=== PATIENT | female | born 1955 | race Caucasian/White ===

== ENCOUNTER → 2016-03-13 | Outpatient (CLI) | payer OTHER | LOC: OD 08:55 | PROVIDERS: ATTEND Family Medicine | DX: E03.9 Hypothyroidism, unspecified (principal); Z79.899 Other long term (current) drug therapy | CPT/HCPCS: 36415; 84436; 84443 ==

== ENCOUNTER 2016-04-19 12:33 | Inpatient (IN) | payer OTHER ==
[2016-04-19] MEDS ORDERED: METHYLPREDNISOLONE INJ 125 MG/2 ML SDV IV ONE (12:43)
[2016-04-19] MEDS ORDERED: IPRATROPIUM/ALBUTEROL 0.5-2.5 MG/3 ML AMPUL NEB ONE ×2 (12:43→19:22)
--- NOTE | 2016-04-19 12:43 | ER Document Report ---
ED Medical Screen (RME) - General TRAVEL OUTSIDE OF THE [place] IN LAST 30 DAYS: No <RICCO LUNA - Last Filed: 04/19/16 12:40> <WM HOLT - Last Filed: 04/19/16 15:53> - General Stated Complaint: COUGH,DIFFICULTY BREATHING Notes: Patient is a 61-year-old female presents emergency room complaining of shortness of breath. Satting 90% on room air. Patient states that she's had shortness of breath and difficulty breathing since Saturday. Denies any home with the albuterol nebulizers. Patient denies any history of COPD or asthma however she has a nebulizer at home for recurrent bronchitis been taking nebulizer albuterol. Patient did not receive an influenza vaccine this year I have greeted and performed a rapid initial assessment of this patient. A comprehensive ED assessment and evaluation of the patient, analysis of test results and completion of the medical decision making process will be conducted by additional ED providers. (RICCO LUNA) - Related Data Allergies/Adverse Reactions: diphenhydramine HCl [From Benadryl] Adverse Reaction (Mild, Verified 04/19/16 12 :40) makes me feel funny Past Medical History - Past Medical History Cardiac Medical History: Reports: Hx Hypercholesterolemia, Hx Hypertension Pulmonary Medical History: Reports: Hx Bronchitis Denies: Hx Tuberculosis Endocrine Medical History: Reports: Hx Diabetes Mellitus Type 2 GI Medical History: Reports: Hx Gastroesophageal Reflux Disease Musculoskeltal Medical History: Reports Hx Arthritis Past Surgical History: Reports: Hx Section, Hx Cholecystectomy, Hx Orthopedic Surgery - Immunizations Immunizations up to date: Yes Hx Diphtheria, Pertussis, Tetanus Vaccination: Yes <RICCO LUNA - Last Filed: 04/19/16 12:40> Course <RICCO LUNA - Last Filed: 04/19/16 12:40> - Laboratory Result Diagrams: 04/19/16 12:50 04/19/16 12:50 <WM HOLT - Last Filed: 04/19/16 15:53> - Re-evaluation Re-evalutation: 04/19/16 15:22 I personally performed the services described in the documentation, reviewed and edited the documentation which was dictated to my scribe in my presence, and it accurately records my words and actions. Patient seen up in [facility] area had been medically screened 3-4 day history of coughing difficulty breathing she does not have a history of COPD emphysema is non-oxygen at home initial sats were running 92% she is tachycardic. Acute workup including chest x-ray and labs are negative including chest x-ray. On my exam patient is still mildly short of breath her O2 sat is 88% and she still tachycardic. I have ordered an IV CT angiogram flu screen and additional workup and evaluation and the patient may be needing admission depending on the results. 04/19/16 15:53 (WM HOLT) - Vital Signs Vital signs: Temp Pulse Resp BP Pulse Ox 98.0 F 100 20 119/70 93 04/19/16 12:41 04/19/16 15:18 04/19/16 15:18 04/19/16 12:41 04/19/16 15:18 (WM HOLT) - Laboratory Laboratory results interpreted by me: 04/19/16 04/19/16 12:50 12:50 Seg Neutrophils % 79.9 H Lymphocytes % 6.4 L Absolute Lymphocytes 0.4 L Sodium 134.7 L Potassium 3.3 L Chloride 92 L BUN 23 H Est GFR (Non-Af Amer) 55 L AST 37 H (WM HOLT) - EKG Interpretation by Me Additional EKG results interpreted by me: 04/19/16 15:53 EKG interpreted by myself to reveal sinus rhythm at 97 bpm with left ventricular hypertrophy. No acute ST segment elevation or depression (WM HOLT )
[2016-04-19] MEDS ORDERED: ALBUTEROL SULFATE 0.083% NEB 2.5 MG/3 ML AMPUL NEB SCH (12:58)
[2016-04-19 13:01] LABS: ABSOLUTE LYMPHOCYTES (AUTO) 0.4 10^3/uL (0.5-4.7); ABSOLUTE MONOCYTES (AUTO) 0.8 10^3/uL (0.1-1.4); ABSOLUTE NEUT (AUTO) 5.1 10^3/uL (1.7-8.2); BASOPHILS % (AUTO) 0.5 % (0-2); EOSINOPHILS % (AUTO) 0.7 % (0-6); HEMATOCRIT 37.8 % (36.0-47.0); HEMOGLOBIN 12.7 g/dL (12.0-15.5); HGB HCT DIFFERENCE 0.3; LYMPHOCYTES % (AUTO) 6.4 % (13-45); MEAN CORPUSCULAR HEMOGLOBIN 29.9 pg (27.0-33.4); MEAN CORPUSCULAR HGB CONC 33.6 g/dL (32.0-36.0); MEAN CORPUSCULAR VOLUME 89 fl (80-97); MONOCYTES % (AUTO) 12.5 % (3-13); RED BLOOD COUNT 4.24 10^6/uL (3.72-5.28); RED CELL DISTRIBUTION WIDTH 13.1 % (11.5-14.0); SEGMENTED NEUTROPHILS % (AUTO) 79.9 % (42-78); WHITE BLOOD COUNT 6.4 10^3/uL (4.0-10.5)
[2016-04-19 13:14] LABS: ALANINE AMINOTRANSFERASE 34 U/L (9-52); ALBUMIN 4.7 g/dL (3.5-5.0); ALKALINE PHOSPHATASE 68 U/L (38-126); ANION GAP 15 (5-19); ASPARTATE AMINO TRANSFERASE 37 U/L (14-36); BILIRUBIN,TOTAL 0.9 mg/dL (0.2-1.3); BLOOD UREA NITROGEN 23 mg/dL (7-20); CALCIUM 9.6 mg/dL (8.4-10.2); CARBON DIOXIDE 28 mmol/L (22-30); CHLORIDE 92 mmol/L (98-107); CREATININE RESULT 1.02 mg/dL (0.52-1.25); GLUCOSE 102 mg/dL (75-110); POTASSIUM 3.3 mmol/L (3.6-5.0); SODIUM 134.7 mmol/L (137-145); TOTAL PROTEIN 8.2 g/dL (6.3-8.2)
[2016-04-19] MEDS ORDERED: NORMAL SALINE 1000 ML 1,000 ML IV ONE (17:51)
--- NOTE | 2016-04-19 17:56 | ER Document Report ---
ED Respiratory Problem - General Time seen by provider: 17:45 Mode of Arrival: Wheelchair Information source: Patient TRAVEL OUTSIDE OF THE [place] IN LAST 30 DAYS: No - HPI Patient complains to provider of: Cough, Short of breath Onset: Other - see HPI note Duration: Continuous At home treatment: Bronchodilators Associated symptoms: Cough. denies: Wheezing <NATALIE BERUMEN - Last Filed: 04/19/16 17:57> <LAURA ALBRECHT - Last Filed: 04/19/16 22:22> - General Chief Complaint: Cough Stated Complaint: COUGH,DIFFICULTY BREATHING Notes: Patient is a 61-year-old female presenting of her department with complaints of difficulty breathing. Patient states her difficulty breathing started Saturday evening. Patient has taken multiple nebulizer treatments to help her breathing with no relief; patient has a nebulizer for when she gets bronchitis. Patient states her breathing is not getting better. Patient states at rest she is okay that her breathing becomes more difficult with movement. Patient also has a nonproductive cough with no sputum. Patient states she has some epigastric pain when she coughs. Patient has felt very dizzy and tired and nauseous today and has not been eating much food or drinking many fluids. Patient denies any fever. Patient did not get her flu vaccination this year. patient is allergic to Benadryll and states it makes her hear flutter. (NATALIE BERUMEN) - Related Data Allergies/Adverse Reactions: diphenhydramine HCl [From Benadryl] Adverse Reaction (Mild, Verified 04/19/16 12 :40) makes me feel funny Past Medical History - General Information source: Patient - Social History Smoking Status: Never Smoker Cigarette use (# per day): No Chew tobacco use (# tins/day): No Frequency of alcohol use: None Drug Abuse: None Family History: DM, Hypertension, Malignancy Patient has suicidal ideation: No Patient has homicidal ideation: No - Past Medical History Cardiac Medical History: Reports: Hx Hypercholesterolemia, Hx Hypertension Pulmonary Medical History: Reports: Hx Bronchitis Endocrine Medical History: Reports: Hx Diabetes Mellitus Type 2 GI Medical History: Reports: Hx Gastroesophageal Reflux Disease Musculoskeltal Medical History: Reports Hx Arthritis Past Surgical History: Reports: Hx Section, Hx Cholecystectomy, Hx Orthopedic Surgery - Immunizations Immunizations up to date: Yes Hx Diphtheria, Pertussis, Tetanus Vaccination: Yes Hx Pneumococcal Vaccination: 10/01/14 <NATALIE BERUMEN - Last Filed: 04/19/16 17:57> - Social History Smoking Education Provided: No Lives with: Family <TRENALAURA Bryant - Last Filed: 04/19/16 22:22> Review of Systems - Review of Systems Constitutional: No symptoms reported EENT: No symptoms reported Cardiovascular: See HPI, Chest pain, Dizziness Respiratory: See HPI, Cough, Hurts to breathe, Short of breath. denies: Sputum Gastrointestinal: No symptoms reported Genitourinary: No symptoms reported Female Genitourinary: No symptoms reported Musculoskeletal: No symptoms reported Skin: No symptoms reported Hematologic/Lymphatic: No symptoms reported Neurological/Psychological: No symptoms reported -: Yes All other systems reviewed and negative <NATALIE BERUMEN - Last Filed: 04/19/16 17:57> Physical Exam - Vital signs Interpretation: Hypoxic - upon arrival - General General appearance: Appears well, Alert In distress: Mild - HEENT Head: Normocephalic, Atraumatic Eyes: Normal Pupils: PERRL Mucous membranes: Moist - Respiratory Respiratory status: No respiratory distress Chest status: Tender - tenderness over the sternum, xiphoid and epigastric area Breath sounds: Other - Course lungs sounds when coughing. No: Rhonchi, Wheezing - Cardiovascular Rhythm: Regular Heart sounds: Normal auscultation Murmur: No - Abdominal Inspection: Normal Distension: No distension Bowel sounds: Normal Tenderness: Nontender Organomegaly: No organomegaly - Back Back: Normal, Nontender - Extremities General upper extremity: Normal inspection, Normal ROM, Normal strength General lower extremity: Normal inspection, Normal ROM, Normal strength - Neurological Neuro grossly intact: Yes Cognition: Normal Orientation: AAOx4 [place] Coma Scale Eye Opening: Spontaneous [place] Coma Scale Verbal: Oriented Valent[place] Coma Scale Motor: Obeys Commands Valentín Coma Scale Total: 15 Speech: Normal - Psychological Associated symptoms: Normal affect, Normal mood - Skin Skin Temperature: Warm Skin Moisture: Dry <ATANATALIE - Last Filed: 04/19/16 17:57> <TRENALAURA - Last Filed: 04/19/16 22:22> - Vital signs Vitals: Temp Pulse Resp BP Pulse Ox 98.0 F 109 H 19 119/70 92 04/19/16 12:41 04/19/16 12:41 04/19/16 12:41 04/19/16 12:41 04/19/16 12:41 (NATALIE BERUMEN) (LAURA ALBRECHT) Course - Laboratory Result Diagrams: 04/19/16 12:50 04/19/16 12:50 <NATALIE BERUMEN - Last Filed: 04/19/16 17:57> - Laboratory Result Diagrams: 04/19/16 12:50 04/19/16 12:50 - Diagnostic Test Radiology reviewed: Reports reviewed - CT scan showed some mediastinal adenopathy some axillary adenopathy. No pulmonary emboli were seen. No failure , no infiltrates. - EKG Interpretation by Me EKG shows normal: Sinus rhythm, Leonardo, Intervals, ST-T Waves. abnormal: QRS Complexes Rate: Normal - 97 Rhythm: NSR Voltage: Consistant with LVH - Consults Dr. Estrada Time consulted: 22:20 Consulted provider: will come to ER <LAURA ALBRECHT - Last Filed: 04/19/16 22:22> - Re-evaluation Re-evalutation: 04/19/16 19:25 Reevaluated the patient after CT scan, oxygen was turned off. I have her take deep breaths and cough and now hear some wheezes and rhonchi and a harsh bronchitic sound consistent with bronchitis with bronchospasm. Bang were also oxygen to see what her oxygen saturation really goes to. She will also be given prednisone for suppression of the airway inflammation she is having. (LAURA ALBRECHT) - Vital Signs Vital signs: Temp Pulse Resp BP Pulse Ox 98.0 F 100 16 97/76 L 93 04/19/16 12:41 04/19/16 15:18 04/19/16 19:10 04/19/16 19:10 04/19/16 19:10 (NATALIE BERUMEN) (LAURA ALBRECHT) - Laboratory Laboratory results interpreted by ri: 04/19/16 04/19/16 04/19/16 12:50 12:50 12:50 Seg Neutrophils % 79.9 H Lymphocytes % 6.4 L Absolute Lymphocytes 0.4 L ABG pO2 ABG Total CO2 ABG O2 Saturation Sodium 134.7 L Potassium 3.3 L Chloride 92 L BUN 23 H Est GFR (Non-Af Amer) 55 L AST 37 H Creatine Kinase 155 H 04/19/16 21:25 Seg Neutrophils % Lymphocytes % Absolute Lymphocytes ABG pO2 65.3 L ABG Total CO2 26.2 H ABG O2 Saturation 92.8 L Sodium Potassium Chloride BUN Est GFR (Non-Af Amer) AST Creatine Kinase (NATALIE BERUMEN) (LAURA ALBRECHT) Discharge <NATALIE BERUMEN - Last Filed: 04/19/16 17:57> - Discharge Admitting Provider: Hospitalist Unit Admitted: Telemetry <LAURA ALBRECHT - Last Filed: 04/19/16 22:22> - Discharge Clinical Impression: Acute bronchitis with bronchospasm, Hypoxemia Condition: Stable Disposition: ADMITTED OBSERVATION Scribe Documentation - Scribe Written by Zhang:: Natalie Berumen 04/19/16 acting as scribe for :: Trena <NATALIE BERUMEN - Last Filed: 04/19/16 17:57>
--- NOTE | 2016-04-19 17:58 | ER Document Report ---
ED Medical Screen (RME) - General Chief Complaint: Cough Stated Complaint: COUGH,DIFFICULTY BREATHING Mode of Arrival: Ambulatory Information source: Patient Notes: Patient is a 61-year-old female presenting to the emergency department chief complaint difficulty breathing onset 04/17/2016. Patient states she has been doing albuterol treatments at home, her most recent being 0700 this morning with little to no improvement. Patient admits to cough, rib pain secondary to cough, chest tightness, chills, bodyaches, poor appetite, and diarrhea (5 times yesterday). Patient denies fever. TRAVEL OUTSIDE OF THE [place] IN LAST 30 DAYS: No - HPI Patient complains to provider of: Difficulty Breathing Onset: Other - 04/17/2016 Onset/Duration: Gradual, Persistent Associated Symptoms: Body/muscle aches, Cough (nonproductive), Diarrhea, Shortness of breath. denies: Fever - Related Data Smoking: Non-smoker Frequency of alcohol use: None Drug Abuse: None Allergies/Adverse Reactions: diphenhydramine HCl [From Benadryl] Adverse Reaction (Mild, Verified 04/19/16 12 :40) makes me feel funny Past Medical History - General Information source: Patient, [facility] Records - Social History Cigarette use (# per day): No Chew tobacco use (# tins/day): No Frequency of alcohol use: None Drug Abuse: None Family history: Reviewed & Not Pertinent - Past Medical History Cardiac Medical History: Reports: Hx Hypercholesterolemia, Hx Hypertension Pulmonary Medical History: Reports: Hx Bronchitis Denies: Hx Tuberculosis Endocrine Medical History: Reports: Hx Diabetes Mellitus Type 2 Renal/ Medical History: Denies: Hx Peritoneal Dialysis GI Medical History: Reports: Hx Gastroesophageal Reflux Disease Musculoskeltal Medical History: Reports Hx Arthritis Past Surgical History: Reports: Hx Section, Hx Cholecystectomy, Hx Orthopedic Surgery - Immunizations Immunizations up to date: Yes Hx Diphtheria, Pertussis, Tetanus Vaccination: Yes Review of Systems - Review of Systems Constitutional: See HPI, Chills, Other - Body aches. denies: Fever EENT: No symptoms reported Cardiovascular: No symptoms reported Respiratory: See HPI, Cough, Hurts to breathe - Chest tightness, Short of breath , Other - Rib pain secondary to cough. denies: Sputum Gastrointestinal: See HPI, Diarrhea - 5 yesterday, Poor appetite Genitourinary: No symptoms reported Female Genitourinary: No symptoms reported Musculoskeletal: No symptoms reported Skin: No symptoms reported Hematologic/Lymphatic: No symptoms reported Neurological/Psychological: No symptoms reported -: Yes All other systems reviewed and negative Physical Exam - Vital signs Vitals: Temp Pulse Resp BP Pulse Ox 98.0 F 109 H 19 119/70 92 04/19/16 12:41 04/19/16 12:41 04/19/16 12:41 04/19/16 12:41 04/19/16 12:41 Notes: GENERAL: Alert, interacts well. LUNGS: Clear to auscultation bilaterally, no wheezes, rales, or rhonchi. HEART: Tachycardic. No murmurs, gallops, or rubs. - Respiratory Breath sounds: Nonproductive cough, Rhonchi, Wheezing Course - Vital Signs Vital signs: Temp Pulse Resp BP Pulse Ox 98.0 F 100 16 97/76 L 93 04/19/16 12:41 04/19/16 15:18 04/19/16 19:10 04/19/16 19:10 04/19/16 19:10 - Laboratory Result Diagrams: 04/19/16 12:50 04/19/16 12:50 Laboratory results interpreted by me: 04/19/16 04/19/16 04/19/16 12:50 12:50 12:50 Seg Neutrophils % 79.9 H Lymphocytes % 6.4 L Absolute Lymphocytes 0.4 L Sodium 134.7 L Potassium 3.3 L Chloride 92 L BUN 23 H Est GFR (Non-Af Amer) 55 L AST 37 H Creatine Kinase 155 H Scribe Documentation - Scribe Written by Zhang:: Fatoumata Henriquez 04/19/2016 [id number] acting as scribe for :: Harjit
[2016-04-19] MEDS ORDERED: LIDOCAINE 1% INJ-PF (10 MG/ML) 30 ML SDV INJ ONE (19:22)
[2016-04-19] MEDS ORDERED: PREDNISONE 20 MG TABLET PO ONE (19:24)
[2016-04-19 21:50] LABS: ARTERIAL BLOOD BASE EXCESS 0.1 mmol/L; ARTERIAL BLOOD O2 SATURATION 92.8 % (94-98)
[2016-04-19] MEDS ORDERED: HYDRALAZINE HCL INJ/PF 20 MG/1 ML SDV IV PRN (22:21)
[2016-04-19] MEDS ORDERED: ACETAMINOPHEN 325 MG TABLET PO PRN (22:21)
[2016-04-19] MEDS ORDERED: LACTULOSE SYRUP 20 GM/30 ML UDCUP PO ONE (22:21)
[2016-04-19] MEDS ORDERED: IPRATROPIUM/ALBUTEROL 0.5-2.5 MG/3 ML AMPUL NEB PRN (22:21)
[2016-04-19] MEDS ORDERED: DEXTROSE 40% GEL 15 GM TUBE PO PRN ×2 (22:23)
[2016-04-19] MEDS ORDERED: GLUCAGON,HUMAN RECOMB 1 MG INJ IM PRN (22:23)
[2016-04-19] MEDS ORDERED: DEXTROSE 50%-WATER 25 GM/50 ML DISP.SYRIN IV PRN ×2 (22:23)
[2016-04-19] MEDS ORDERED: POTASSIUM CHLORIDE 10 MEQ TABLET.SA PO ONE (22:28)
[2016-04-19] MEDS ORDERED: NORMAL SALINE 1000 ML 1,000 ML IV SCH (22:30)
[2016-04-19] MEDS ORDERED: LEVOFLOXACIN 750 MG/D5W RTU 750 MG/150 ML RTUPB IV SCH (23:00)
[2016-04-19] MEDS: LANSOPRAZOLE 30 MG TAB.RAP.DR PO SCH (23:24)
[2016-04-20] MEDS: IPRATROPIUM/ALBUTEROL 0.5-2.5 MG/3 ML AMPUL NEB SCH ×4 (02:12→20:34)
[2016-04-20] MEDS ORDERED: INFLUENZA ADLT QUAD (36MOS+) 2016-17 VAC 0.5 ML SYR IM PRN (04:32)
--- NOTE | 2016-04-20 05:01 | PDOC H&P ---
History of Present Illness Admission Date/PCP: 04/19/16 22:23 JOVITA UP MD Patient complains of: Shortness of breath and cough History of Present Illness: SONG CLEMONS is a 61 year old female with a past medical history of hypertension, diabetes, GERD, obesity and chronic bronchitis who has had 2 days of exceptional shortness of breath and a nonproductive cough prompting him to seek evaluation emergency room where she's found to be tachypneic and hypoxic by ABG. She receives several albuterol Atrovent nebulizers and stress dose steroids, without significant improvement and is referred to the hospitalist for admission. She admits chest wall pain with coughing nausea vomiting or diaphoresis. She admits maxillary sinusitis without pain denies pharyngitis. A CTA of the chest is negative for pulmonary emboli but worrisome for mediastinal lymphadenopathy. Past Medical History Cardiac Medical History: Reports: Hyperlipidema, Hypertension Pulmonary Medical History: Reports: Bronchitis Denies: Tuberculosis Endocrine Medical History: Reports: Diabetes Mellitus Type 2 GI Medical History: Reports: Gastroesophageal Reflux Disease Musculoskeltal Medical History: Reports: Arthritis Hematology: Denies: Anemia Past Surgical History Past Surgical History: Reports: Section, Cholecystectomy, Orthopedic Surgery Social History Information Source: Patient Lives with: Family Smoking Status: Never Smoker Frequency of Alcohol Use: None Hx Recreational Drug Use: No Hx Prescription Drug Abuse: No - Advance Directive Resuscitation Status: Full Code Family History Family History: DM, Hypertension, Malignancy Parental Family History Reviewed: Yes Children Family History Reviewed: Yes Sibling(s) Family History Reviewed.: Yes Medication/Allergy Home Medications: Amlodipine Besylate [Norvasc 10 mg Tablet] 10 mg PO DAILY 02/18/13 Atorvastatin Calcium [Lipitor 20 mg Tablet] 20 mg PO QHS 02/18/13 Gabapentin 800 mg PO QID 02/18/13 Hydrocodone Bit/Acetaminophen [Hydrocodon-Acetaminophn 10-325] 1 each PO QID Insulin Lispro [Humalog] 100 unit SQ ASDIR PRN 02/18/13 Metformin HCl [Glucophage 850 mg Tablet] 850 mg PO BID 02/18/13 Pantoprazole Sodium [Protonix] 40 mg PO DAILY 02/18/13 Azithromycin [Zithromax 250 mg Tablet] 250 mg PO ASDIR PRN #6 tablet 06/02/13 Benzonatate [Tessalon Perles 100 mg Capsule] 100 mg PO ASDIR PRN #30 capsule 03/17 Levalbuterol HCl [Xopenex] 1.25 mg IH Q4 PRN #30 ml 06/02/13 Amoxicillin Trihydrate [Amoxil 875 mg Tablet] 1 tab PO BID #20 tablet 04/04/14 Amoxicillin 500 mg PO TID #30 tablet 05/10/14 Hydrocodone Bit/Homatropine [Hycodan Syrup 5-1.5 mg/ 5 ml Ud Cup] 5 ml PO ASDIR PRN #60 ml 05/10/14 Loratadine [Claritin 10 Mg Tablet] 10 mg PO DAILY #30 tablet 05/10/14 Allergies/Adverse Reactions: diphenhydramine HCl [From Benadryl] Adverse Reaction (Mild, Verified 04/19/16 12 :40) makes me feel funny Review of Systems Constitutional: ABSENT: chills, fever(s), headache(s), weight gain, weight loss Eyes: ABSENT: visual disturbances Ears: ABSENT: hearing changes Cardiovascular: ABSENT: chest pain, dyspnea on exertion, edema, orthropnea, palpitations Respiratory: ABSENT: cough, hemoptysis Gastrointestinal: ABSENT: abdominal pain, constipation, diarrhea, hematemesis, hematochezia, nausea, vomiting Genitourinary: ABSENT: dysuria, hematuria Musculoskeletal: ABSENT: joint swelling Integumentary: ABSENT: rash, wounds Neurological: ABSENT: abnormal gait, abnormal speech, confusion, dizziness, focal weakness, syncope Psychiatric: ABSENT: anxiety, depression, homidical ideation, suicidal ideation Endocrine: ABSENT: cold intolerance, heat intolerance, polydipsia, polyuria Hematologic/Lymphatic: ABSENT: easy bleeding, easy bruising Physical Exam Vital Signs: Temp Pulse Resp BP Pulse Ox 98.2 F 93 16 128/55 H 96 04/20/16 02:46 04/20/16 02:46 04/20/16 02:46 04/20/16 02:46 04/20/16 02:46 Intake & Output 04/18/16 04/19/16 04/20/16 11:59 11:59 11:59 Weight 98.7 kg General appearance: PRESENT: cooperative, mild distress, obese Head exam: PRESENT: atraumatic, normocephalic Eye exam: PRESENT: conjunctiva pink, EOMI, PERRLA. ABSENT: scleral icterus Ear exam: PRESENT: normal external ear exam Mouth exam: PRESENT: moist, tongue midline Neck exam: ABSENT: carotid bruit, JVD, lymphadenopathy, thyromegaly Respiratory exam: PRESENT: accessory muscle use, chest wall tenderness, crackles , rhonchi, symmetrical, tachypnea. ABSENT: rales, wheezes Cardiovascular exam: PRESENT: RRR. ABSENT: diastolic murmur, rubs, systolic murmur Pulses: PRESENT: normal dorsalis pedis pul Vascular exam: PRESENT: normal capillary refill GI/Abdominal exam: PRESENT: normal bowel sounds, soft. ABSENT: distended, guarding, mass, organolmegaly, rebound, tenderness Rectal exam: PRESENT: deferred Extremities exam: PRESENT: full ROM. ABSENT: calf tenderness, clubbing, pedal edema Neurological exam: PRESENT: alert, awake, oriented to person, oriented to place , oriented to time, oriented to situation, CN II-XII grossly intact. ABSENT: motor sensory deficit Psychiatric exam: PRESENT: appropriate affect, normal mood. ABSENT: homicidal ideation, suicidal ideation Skin exam: PRESENT: dry, intact, warm. ABSENT: cyanosis, rash Results Impressions: Chest X-Ray 04/19/16 12:43 IMPRESSION: NO ACUTE RADIOGRAPHIC FINDING IN THE CHEST. Assessment & Plan - Diagnosis (1) Acute bronchitis with bronchospasm Is this a current diagnosis for this admission?: YesPlan: Probable early pneumonia she is placed on empiric antibiotics, albuterol Atrovent, prednisone with flutter valve follow-up CBC and sputum culture (2) Hypoxemia Is this a current diagnosis for this admission?: YesPlan: Secondary to #1 she'll receive supplemental oxygen (3) Mediastinal lymphadenopathy Is this a current diagnosis for this admission?: YesPlan: Hematology oncology consultation versus follow-up CT in 3 months (4) Diabetes 1.5, managed as type 1 Is this a current diagnosis for this admission?: YesPlan: Unclear control continue long-acting insulin with sliding scale lispro - Time Time Spent: 30 to 50 Minutes
[2016-04-20 05:04] LABS: ABSOLUTE LYMPHOCYTES (AUTO) 0.3 10^3/uL (0.5-4.7); ABSOLUTE MONOCYTES (AUTO) 0.1 10^3/uL (0.1-1.4); ABSOLUTE NEUT (AUTO) 2.7 10^3/uL (1.7-8.2); BASOPHILS % (AUTO) 0.4 % (0-2); HEMATOCRIT 34.6 % (36.0-47.0); HEMOGLOBIN 11.7 g/dL (12.0-15.5); HGB HCT DIFFERENCE 0.5; LYMPHOCYTES % (AUTO) 8.4 % (13-45); MEAN CORPUSCULAR HEMOGLOBIN 30.4 pg (27.0-33.4); MEAN CORPUSCULAR HGB CONC 33.9 g/dL (32.0-36.0); MEAN CORPUSCULAR VOLUME 90 fl (80-97); MONOCYTES % (AUTO) 2.6 % (3-13); RED BLOOD COUNT 3.86 10^6/uL (3.72-5.28); RED CELL DISTRIBUTION WIDTH 13.2 % (11.5-14.0); SEGMENTED NEUTROPHILS % (AUTO) 88.6 % (42-78); WHITE BLOOD COUNT 3.1 10^3/uL (4.0-10.5)
[2016-04-20 05:17] LABS: ANION GAP 14 (5-19); BLOOD UREA NITROGEN 26 mg/dL (7-20); CALCIUM 9.2 mg/dL (8.4-10.2); CARBON DIOXIDE 25 mmol/L (22-30); CHLORIDE 96 mmol/L (98-107); CREATININE RESULT 1.03 mg/dL (0.52-1.25); GLUCOSE 243 mg/dL (75-110); POTASSIUM 3.9 mmol/L (3.6-5.0); SODIUM 135.4 mmol/L (137-145)
[2016-04-20] MEDS ORDERED: MAGNESIUM OXIDE 400 MG TABLET PO ONE (05:45)
[2016-04-20] MEDS ORDERED: PREDNISONE 20 MG TABLET PO ONE (06:00)
[2016-04-20] MEDS: HEPARIN SOD (PORCINE) 5,000 UNIT/ML 1 ML SYRINGE SUBCUT SCH ×3 (06:03→22:14)
[2016-04-20] MEDS: HUM INSULIN NPH/REG INSULIN HM 100 UNIT/1 ML 3 ML SUBCUT SCH ×2 (08:21→16:00)
[2016-04-20] MEDS: AMLODIPINE BESYLATE 10 MG TABLET PO SCH (09:37)
[2016-04-20] MEDS: MAGNESIUM OXIDE 400 MG TABLET PO SCH ×2 (09:37→18:04)
[2016-04-20] MEDS: PREDNISONE 20 MG TABLET PO SCH ×2 (09:38→18:04)
[2016-04-20] MEDS: FLUTICASONE NASAL SPRAY 50 MCG/SPRY 120 SPRAY/16 GM NASL SCH ×2 (09:40→22:14)
[2016-04-20] MEDS: GUAIFENESIN 600 MG TABLET.SA PO SCH ×2 (09:40→22:14)
[2016-04-20] MEDS: LORATADINE 10 MG TABLET PO SCH (09:41)
[2016-04-20] MEDS: METFORMIN HCL 850 MG TABLET PO SCH ×2 (09:41→18:04)
[2016-04-20] MEDS: GABAPENTIN 400 MG CAPSULE PO SCH ×4 (09:41→22:14)
--- NOTE | 2016-04-20 10:14 | PDOC PROGRESS REPORT ---
Subjective Progress Note for:: 04/20/16 Subjective:: Complains of shortness of breath but reports is slightly better than yesterday evening. Physical Exam Vital Signs: Temp Pulse Resp BP Pulse Ox 97.8 F 83 16 116/61 97 04/20/16 04:24 04/20/16 07:36 04/20/16 07:36 04/20/16 04:24 04/20/16 07:36 Intake & Output 04/19/16 04/20/16 04/21/16 06:59 06:59 06:59 Intake Total 150 Balance 150 Weight 98.7 kg General appearance: PRESENT: no acute distress Eye exam: PRESENT: conjunctiva pink. ABSENT: scleral icterus Mouth exam: PRESENT: moist, tongue midline Neck exam: ABSENT: JVD Respiratory exam: PRESENT: clear to auscultation chantel, wheezes - Bilateral expiratory wheezes.. ABSENT: rales, rhonchi Cardiovascular exam: PRESENT: RRR. ABSENT: diastolic murmur, rubs, systolic murmur GI/Abdominal exam: PRESENT: normal bowel sounds, soft. ABSENT: distended, guarding, mass, organolmegaly, rebound, tenderness Extremities exam: ABSENT: calf tenderness, clubbing, pedal edema Neurological exam: PRESENT: alert, awake, oriented to person, oriented to place , oriented to time, oriented to situation Psychiatric exam: PRESENT: appropriate affect Skin exam: PRESENT: dry, intact, warm. ABSENT: cyanosis, rash Results Laboratory Results: 04/20/16 03:54 04/20/16 03:54 04/20/16 04/20/16 03:54 03:54 WBC 3.1 L RBC 3.86 Hgb 11.7 L Hct 34.6 L MCV 90 MCH 30.4 MCHC 33.9 RDW 13.2 Plt Count 157 Seg Neutrophils % 88.6 H Lymphocytes % 8.4 L Monocytes % 2.6 L Eosinophils % 0.0 Basophils % 0.4 Absolute Neutrophils 2.7 Absolute Lymphocytes 0.3 L Absolute Monocytes 0.1 Absolute Eosinophils 0.0 Absolute Basophils 0.0 Sodium 135.4 L Potassium 3.9 Chloride 96 L Carbon Dioxide 25 Anion Gap 14 BUN 26 H Creatinine 1.03 Est GFR ( Amer) > 60 Est GFR (Non-Af Amer) 54 L Glucose 243 H Calcium 9.2 Impressions: Chest X-Ray 04/19/16 12:43 IMPRESSION: NO ACUTE RADIOGRAPHIC FINDING IN THE CHEST. Assessment & Plan - Diagnosis (1) Acute bronchitis with bronchospasm Is this a current diagnosis for this admission?: YesPlan: Patient is getting prednisone and Levaquin. We'll also continue with nebulizers. (2) Diabetes 1.5, managed as type 1 Is this a current diagnosis for this admission?: YesPlan: We'll continue with 70/30 insulin along with sliding scale insulin. (3) Hypoxemia Is this a current diagnosis for this admission?: YesPlan: Most likely secondary to bronchospasms. Continue with oxygen and nebulizers. (4) Mediastinal lymphadenopathy Is this a current diagnosis for this admission?: YesPlan: We will plan on repeating a CT scan once the acute infection is treated. - Time Time Spent with patient: 15-24 minutes - Inpatient Certification Medical Necessity: Need for IV Antibiotics
[2016-04-20] MEDS: INSULIN LISPRO 100 UNIT/ML 3 ML VIAL SUBCUT PRN ×2 (11:36→16:01)
--- NOTE | 2016-04-20 12:41 | EKG REPORT ---
SEVERITY:- ABNORMAL ECG - SINUS RHYTHM LEFT VENTRICULAR HYPERTROPHY : Confirmed by: Sarah Eid 20-Apr-2016 12:40:38
[2016-04-20] MEDS ORDERED: LEVOFLOXACIN 750 MG/D5W RTU 750 MG/150 ML RTUPB IV SCH (15:00)
[2016-04-20] MEDS ORDERED: ATORVASTATIN CALCIUM 20 MG TABLET PO SCH (22:00)
[2016-04-21] MEDS: IPRATROPIUM/ALBUTEROL 0.5-2.5 MG/3 ML AMPUL NEB SCH ×2 (02:25→08:37)
[2016-04-21 04:43] LABS: ABSOLUTE LYMPHOCYTES (AUTO) 0.5 10^3/uL (0.5-4.7); ABSOLUTE MONOCYTES (AUTO) 0.6 10^3/uL (0.1-1.4); ABSOLUTE NEUT (AUTO) 3.8 10^3/uL (1.7-8.2); BASOPHILS % (AUTO) 0.1 % (0-2); HEMOGLOBIN 12.3 g/dL (12.0-15.5); HGB HCT DIFFERENCE 0.9; MEAN CORPUSCULAR HEMOGLOBIN 30.3 pg (27.0-33.4); MEAN CORPUSCULAR HGB CONC 34.1 g/dL (32.0-36.0); MEAN CORPUSCULAR VOLUME 89 fl (80-97); MONOCYTES % (AUTO) 12.9 % (3-13); RED BLOOD COUNT 4.06 10^6/uL (3.72-5.28); RED CELL DISTRIBUTION WIDTH 13.1 % (11.5-14.0)
[2016-04-21 04:57] LABS: ANION GAP 12 (5-19); BLOOD UREA NITROGEN 24 mg/dL (7-20); CALCIUM 9.6 mg/dL (8.4-10.2); CARBON DIOXIDE 29 mmol/L (22-30); CHLORIDE 98 mmol/L (98-107); CREATININE RESULT 0.82 mg/dL (0.52-1.25); GLUCOSE 153 mg/dL (75-110); POTASSIUM 3.7 mmol/L (3.6-5.0); SODIUM 139.3 mmol/L (137-145)
[2016-04-21] MEDS: HEPARIN SOD (PORCINE) 5,000 UNIT/ML 1 ML SYRINGE SUBCUT SCH (06:22)
[2016-04-21] MEDS: HUM INSULIN NPH/REG INSULIN HM 100 UNIT/1 ML 3 ML SUBCUT SCH (07:48)
[2016-04-21 09:06] VITALS: BP 124/61
[2016-04-21] MEDS: AMLODIPINE BESYLATE 10 MG TABLET PO SCH (09:10)
[2016-04-21] MEDS: GUAIFENESIN 600 MG TABLET.SA PO SCH (09:11)
[2016-04-21] MEDS: LANSOPRAZOLE 30 MG TAB.RAP.DR PO SCH (09:11)
[2016-04-21] MEDS: GABAPENTIN 400 MG CAPSULE PO SCH (09:11)
[2016-04-21] MEDS: MAGNESIUM OXIDE 400 MG TABLET PO SCH (09:12)
[2016-04-21] MEDS: METFORMIN HCL 850 MG TABLET PO SCH (09:12)
[2016-04-21] MEDS: LORATADINE 10 MG TABLET PO SCH (09:12)
[2016-04-21] MEDS: PREDNISONE 20 MG TABLET PO SCH (09:12)
[2016-04-21] MEDS: FLUTICASONE NASAL SPRAY 50 MCG/SPRY 120 SPRAY/16 GM NASL SCH (09:15)
--- NOTE | 2016-04-21 15:01 | PDOC DISCHARGE SUMMARY ---
General - Admit/Disc Date/PCP Admission Date/Primary Care Provider: 04/20/16 18:22 JOVITA UP MD Discharge Date: 04/21/16 - Discharge Diagnosis (1) Acute bronchitis with bronchospasm Is this a current diagnosis for this admission?: Yes (2) Diabetes 1.5, managed as type 1 Is this a current diagnosis for this admission?: Yes (3) Hypoxemia Is this a current diagnosis for this admission?: YesSummary: Secondary to acute bronchitis with acute COPD exacerbation. (4) Mediastinal lymphadenopathy Is this a current diagnosis for this admission?: YesSummary: Patient will complete a course antibiotics and have a repeat scan 6-8 weeks after that. - Additional Information Resuscitation Status: Full Code Discharge Diet: Diabetic Discharge Activity: Activity As Tolerated Home Medications: Amlodipine Besylate [Norvasc 10 mg Tablet] 10 mg PO DAILY 04/20/16 Atorvastatin Calcium [Lipitor 20 mg Tablet] 20 mg PO DAILY 04/20/16 Cyclobenzaprine HCl [Flexeril 10 mg Tablet] 10 mg PO QID 04/20/16 Gabapentin [Neurontin] 800 mg PO QID 04/20/16 Hydrocodone Bit/Acetaminophen [Hydrocodon-Acetaminophn 10-325] 1 tab PO QID Insulin Aspart Protam & Aspart [Novolog Mix 70-30 Vial] 35 unit SQ BID 04/20/16 Levalbuterol HCl [Xopenex Concentrate] 1.25 mg IH Q4 04/20/16 Levothyroxine Sodium [Synthroid] 50 mcg PO QAM 04/20/16 Metformin HCl [Glucophage] 850 mg PO BID 04/20/16 Pantoprazole Sodium [Protonix] 40 mg PO DAILY 04/20/16 Valsartan/Hydrochlorothiazide [Valsartan-Hctz 320-12.5 mg Tab] 1 tab PO DAILY Levofloxacin [Levaquin 750 mg Tablet] 750 mg PO DAILY #3 tablet 04/21/16 Magnesium Oxide [Mag-Ox 400 mg Tablet] 400 mg PO BID tablet 04/21/16 Prednisone [Deltasone 20 mg Tablet] 20 mg PO BID #12 tablet 04/21/16 History of Present Illness History of Present Illness: SONG CLEMONS is a 61 year old female who presented with shortness of breath and cough. Patient was found acute bronchitis with a exacerbation of reactive airway disease. Probably representing COPD exacerbation. Hospital Course Hospital Course: 61-year-old female presented with shortness of breath was found have bronchitis with an acute COPD exacerbation. Patient treated with nebulizers and antibiotics had quick resolution of her wheezing. Patient was not given any IV steroids as her wheezing quickly responded to the nebulizers and oral prednisone. Patient was started on Levaquin. She was monitored another day and discharged home. Physical Exam Vital Signs: Temp Pulse Resp BP Pulse Ox 98.3 F 88 18 124/61 95 04/21/16 07:59 04/21/16 09:01 04/21/16 08:37 04/21/16 07:59 04/21/16 09:01 Intake & Output 04/20/16 04/21/16 04/22/16 06:59 06:59 06:59 Intake Total 480 Balance 480 Weight 98.7 kg General appearance: PRESENT: no acute distress Eye exam: PRESENT: conjunctiva pink. ABSENT: scleral icterus Mouth exam: PRESENT: moist, tongue midline Neck exam: ABSENT: carotid bruit, JVD, lymphadenopathy, thyromegaly Respiratory exam: PRESENT: clear to auscultation chantel. ABSENT: rales, rhonchi, wheezes Cardiovascular exam: PRESENT: RRR. ABSENT: diastolic murmur, rubs, systolic murmur GI/Abdominal exam: PRESENT: normal bowel sounds, soft. ABSENT: distended, guarding, mass, organolmegaly, rebound, tenderness Extremities exam: ABSENT: calf tenderness, clubbing, pedal edema Neurological exam: PRESENT: alert, awake, oriented to person, oriented to place , oriented to time, oriented to situation Psychiatric exam: PRESENT: appropriate affect Skin exam: PRESENT: dry, intact, warm. ABSENT: cyanosis, rash Results Laboratory Results: 04/21/16 03:54 04/21/16 03:54 04/21/16 04/21/16 03:54 03:54 WBC 5.0 RBC 4.06 Hgb 12.3 Hct 36.0 MCV 89 MCH 30.3 MCHC 34.1 RDW 13.1 Plt Count 177 Seg Neutrophils % 77.0 Lymphocytes % 10.0 L Monocytes % 12.9 Eosinophils % 0.0 Basophils % 0.1 Absolute Neutrophils 3.8 Absolute Lymphocytes 0.5 Absolute Monocytes 0.6 Absolute Eosinophils 0.0 Absolute Basophils 0.0 Sodium 139.3 Potassium 3.7 Chloride 98 Carbon Dioxide 29 Anion Gap 12 BUN 24 H Creatinine 0.82 Est GFR ( Amer) > 60 Est GFR (Non-Af Amer) > 60 Glucose 153 H Calcium 9.6 Impressions: Chest X-Ray 04/19/16 12:43 IMPRESSION: NO ACUTE RADIOGRAPHIC FINDING IN THE CHEST. Qualifiers PATEINT BEING DISCHARGED WITH ANY OF THE FOLLOWING DIAGNOSIS?: No Plan Discharge Plan: Patient was discharged home in stable condition. Time Spent: Less than 30 Minutes
== END 2016-04-21 11:15 | disposition home or self-care (01) | DRG 192 ==
LOC: ER 12:33 → EH 22:23 → UNDOADMOB 23:11 → EH 23:11 → 5 04-20 02:35 → OBSVTOIN 04-20 18:22
PROVIDERS: ADMIT Internal Medicine; ATTEND Internal Medicine
PROC: 3E0F73Z Introduction of Anti-inflammatory into Respiratory Tract, Via Natural or Artificial Opening (ICD-10-PCS; principal; 2016-04-20)
DX: J44.0 Chronic obstructive pulmonary disease with (acute) lower respiratory infection (principal); J20.9 Acute bronchitis, unspecified; J44.1 Chronic obstructive pulmonary disease with (acute) exacerbation; E13.9 Other specified diabetes mellitus without complications; R09.02 Hypoxemia; R59.0 Localized enlarged lymph nodes; I10 Essential (primary) hypertension; K21.9 Gastro-esophageal reflux disease without esophagitis; E66.9 Obesity, unspecified; Z68.38 Body mass index [BMI] 38.0-38.9, adult; E78.5 Hyperlipidemia, unspecified; E78.00 Pure hypercholesterolemia, unspecified; M19.90 Unspecified osteoarthritis, unspecified site; Z90.49 Acquired absence of other specified parts of digestive tract; Z88.8 Allergy status to other drugs, medicaments and biological substances; Z79.4 Long term (current) use of insulin; Z79.899 Other long term (current) drug therapy; Z83.3 Family history of diabetes mellitus; Z80.9 Family history of malignant neoplasm, unspecified; Z82.49 Family history of ischemic heart disease and other diseases of the circulatory system
CPT/HCPCS: 36415; 36600; 71010; 71275; 80048; 80053; 82550; 82803; 82962; 83735; 83880; 84484; 85025; 85379; 87804; 93005; 93010; 94640; 94668; 94799; 96365; 99285; G0378; J1644; J1815; J1956; J3490; J7512; J7620

== ENCOUNTER 2016-05-03 18:25 | Emergency (ER) | payer OTHER ==
--- NOTE | 2016-05-03 18:35 | ER Document Report ---
ED Medical Screen (RME) - General Stated Complaint: COUGH Mode of Arrival: Ambulatory Information source: Patient Notes: c/o productive cough (phlegm) and post-tussive vomiting that has been present for the past 2 weeks. She was admitted here on 04/19/16 for bronchitis and hypoxia and was discharged on 04/21/16. She states the wheezing has not improved. She has been taking steroids, abx which she has completed but is still not feeling better. She did 3 nebulizer treatments today, last one was approx 2 hours ago. Endorses chills, chest wall pain, SOB denies fever, chest pain, nausea, diarrhea. I have greeted and performed a rapid initial assessment of this patient. A comprehensive ED assessment and evaluation of the patient, analysis of test results and completion of the medical decision making process will be conducted by additional ED providers. TRAVEL OUTSIDE OF THE [place] IN LAST 30 DAYS: No - Related Data Allergies/Adverse Reactions: diphenhydramine HCl [From Benadryl] Adverse Reaction (Mild, Verified 05/03/16 18 :31) makes me feel funny Past Medical History - Social History Family history: Reviewed & Not Pertinent - Past Medical History Cardiac Medical History: Reports: Hx Hypercholesterolemia, Hx Hypertension Pulmonary Medical History: Reports: Hx Bronchitis Denies: Hx Tuberculosis Endocrine Medical History: Reports: Hx Diabetes Mellitus Type 2 Renal/ Medical History: Denies: Hx Peritoneal Dialysis GI Medical History: Reports: Hx Gastroesophageal Reflux Disease Musculoskeltal Medical History: Reports Hx Arthritis Past Surgical History: Reports: Hx Section, Hx Cholecystectomy, Hx Orthopedic Surgery - Immunizations Immunizations up to date: Yes Hx Diphtheria, Pertussis, Tetanus Vaccination: Yes Physical Exam - Vital signs Vitals: Temp Pulse Resp BP Pulse Ox 97.7 F 106 H 20 139/80 H 98 05/03/16 18:29 05/03/16 18:29 05/03/16 18:29 05/03/16 18:29 05/03/16 18:29 - Notes Notes: Lungs: CTAB without wheezing Course - Vital Signs Vital signs: Temp Pulse Resp BP Pulse Ox 97.7 F 106 H 20 139/80 H 98 05/03/16 18:29 05/03/16 18:29 05/03/16 18:29 05/03/16 18:29 05/03/16 18:29
[2016-05-03 18:54] LABS: ABSOLUTE EOSINOPHILS # (AUTO) 0.1 10^3/uL (0.0-0.6); ABSOLUTE LYMPHOCYTES (AUTO) 3.1 10^3/uL (0.5-4.7); ABSOLUTE MONOCYTES (AUTO) 0.8 10^3/uL (0.1-1.4); ABSOLUTE NEUT (AUTO) 8.4 10^3/uL (1.7-8.2); BASOPHILS % (AUTO) 0.4 % (0-2); EOSINOPHILS % (AUTO) 0.8 % (0-6); HEMATOCRIT 37.5 % (36.0-47.0); HEMOGLOBIN 12.6 g/dL (12.0-15.5); HGB HCT DIFFERENCE 0.3; LYMPHOCYTES % (AUTO) 24.9 % (13-45); MEAN CORPUSCULAR HEMOGLOBIN 30.2 pg (27.0-33.4); MEAN CORPUSCULAR HGB CONC 33.7 g/dL (32.0-36.0); MEAN CORPUSCULAR VOLUME 90 fl (80-97); MONOCYTES % (AUTO) 6.7 % (3-13); RED BLOOD COUNT 4.18 10^6/uL (3.72-5.28); RED CELL DISTRIBUTION WIDTH 13.1 % (11.5-14.0); SEGMENTED NEUTROPHILS % (AUTO) 67.2 % (42-78); WHITE BLOOD COUNT 12.5 10^3/uL (4.0-10.5)
[2016-05-03 19:05] LABS: ALANINE AMINOTRANSFERASE 32 U/L (9-52); ALKALINE PHOSPHATASE 55 U/L (38-126); ANION GAP 15 (5-19); ASPARTATE AMINO TRANSFERASE 24 U/L (14-36); BILIRUBIN,TOTAL 0.8 mg/dL (0.2-1.3); BLOOD UREA NITROGEN 14 mg/dL (7-20); CALCIUM 9.8 mg/dL (8.4-10.2); CARBON DIOXIDE 26 mmol/L (22-30); CHLORIDE 98 mmol/L (98-107); CREATININE RESULT 0.87 mg/dL (0.52-1.25); GLUCOSE 149 mg/dL (75-110); POTASSIUM 3.6 mmol/L (3.6-5.0); SODIUM 138.8 mmol/L (137-145); TOTAL PROTEIN 7.3 g/dL (6.3-8.2)
[2016-05-03] MEDS ORDERED: BENZONATATE 100 MG CAPSULE PO ONE (19:45)
[2016-05-03] MEDS ORDERED: DEXAMETHASONE SOD PHOS INJ 10 MG/1 ML VIAL IM ONE (20:36)
[2016-05-03] MEDS ORDERED: IPRATROPIUM/ALBUTEROL 0.5-2.5 MG/3 ML AMPUL NEB ONE (20:39)
--- NOTE | 2016-05-03 20:41 | ER Document Report ---
ED General - General Chief Complaint: Breathing Difficulty Stated Complaint: COUGH Mode of Arrival: Ambulatory Notes: Patient is a 61-year-old female recently discharged from the hospital with a bronchitis with associated oxygen dependency who presents with ongoing cough. States that her coughing has never improved since being discharged and she presents today with a desire to get a medicine to help stop her coughing. States she's been using Tessalon Perles and albuterol home with minimal improvement of her symptoms. Nothing worsens her symptoms. Denies any associated shortness of breath, nausea, vomiting or fever. She has not followed up with her primary care doctor. States that she does not appear nearly as ill as when she first presented and required admission several weeks ago TRAVEL OUTSIDE OF THE [place] IN LAST 30 DAYS: No - Related Data Allergies/Adverse Reactions: diphenhydramine HCl [From Benadryl] Adverse Reaction (Mild, Verified 05/03/16 18 :31) makes me feel funny Past Medical History - General Information source: Patient - Social History Smoking Status: Never Smoker Chew tobacco use (# tins/day): No Frequency of alcohol use: None Drug Abuse: None Lives with: Spouse/Significant other Family History: DM, Hypertension, Malignancy Patient has suicidal ideation: No Patient has homicidal ideation: No - Past Medical History Cardiac Medical History: Reports: Hx Hypercholesterolemia, Hx Hypertension Pulmonary Medical History: Reports: Hx Bronchitis Denies: Hx Tuberculosis Endocrine Medical History: Reports: Hx Diabetes Mellitus Type 2 Renal/ Medical History: Denies: Hx Peritoneal Dialysis GI Medical History: Reports: Hx Gastroesophageal Reflux Disease Musculoskeltal Medical History: Reports Hx Arthritis Past Surgical History: Reports: Hx Section, Hx Cholecystectomy, Hx Orthopedic Surgery - Immunizations Immunizations up to date: Yes Hx Diphtheria, Pertussis, Tetanus Vaccination: Yes Hx Pneumococcal Vaccination: 12/02/13 Review of Systems - Review of Systems Notes: Constitutional: Negative for fever. HENT: Negative for sore throat. Eyes: Negative for visual changes. Cardiovascular: Negative for chest pain. Respiratory: Negative for shortness of breath. Positive for persistent cough Gastrointestinal: Negative for abdominal pain, vomiting or diarrhea. Genitourinary: Negative for dysuria. Musculoskeletal: Negative for back pain. Skin: Negative for rash. Neurological: Negative for headaches, weakness or numbness. 10 point ROS negative except as marked above and in HPI. Physical Exam - Vital signs Vitals: Temp Pulse Resp BP Pulse Ox 97.7 F 106 H 20 139/80 H 98 05/03/16 18:29 05/03/16 18:29 05/03/16 18:29 05/03/16 18:29 05/03/16 18:29 Interpretation: Tachycardic Notes: PHYSICAL EXAMINATION: GENERAL: Well-appearing, well-nourished and in no acute distress. HEAD: Atraumatic, normocephalic. EYES: Pupils equal round and reactive to light, extraocular movements intact, sclera anicteric, conjunctiva are normal. ENT: nares patent, oropharynx clear without exudates. Moist mucous membranes. NECK: Normal range of motion, supple without lymphadenopathy LUNGS: Breath sounds clear to auscultation bilaterally and equal. No respiratory distress. There is a faint end expiratory wheeze in all lung antunez HEART: Regular rate and rhythm without murmurs ABDOMEN: Soft, nontender, normoactive bowel sounds. No guarding, no rebound. No masses appreciated. EXTREMITIES: Normal range of motion, no pitting or edema. No cyanosis. NEUROLOGICAL: No focal neurological deficits. Moves all extremities spontaneously and on command. PSYCH: Normal mood, normal affect. SKIN: Warm, Dry, normal turgor, no rashes or lesions noted. Course - Re-evaluation Re-evalutation: 05/03/16 20:39 Patient presents with signs and symptoms most consistent with acute bronchitis. She was recently discharged from the hospital with the same. Chest x-ray today is clear. Mild wheezing at the end of her expiratory phase bilaterally. Vitals are all within normal limits without tachypnea, tachycardia or hypoxemia at the time my evaluation. I do not suspect an acute pulmonary embolus, myocardial infarction, or acute pneumonia based on exam and clinical history. She will be given a dose of Decadron, has nebulizers already at home, and will be given Tessalon Perles to assist with her persistent coughing.At this time will discharge with return precautions and follow-up recommendations. Verbal discharge instructions given a the bedside and opportunity for questions given. Medication warnings reviewed. Patient is in agreement with this plan and has verbalized understanding of return precautions and the need for primary care follow-up in the next 24-72 hours. - Vital Signs Vital signs: Temp Pulse Resp BP Pulse Ox 97.3 F 91 18 122/74 95 05/03/16 21:22 05/03/16 21:22 05/03/16 21:22 05/03/16 21:22 05/03/16 21:22 - Laboratory Result Diagrams: 05/03/16 18:35 05/03/16 18:35 Laboratory results interpreted by me: 05/03/16 05/03/16 18:35 18:35 WBC 12.5 H Absolute Neutrophils 8.4 H Glucose 149 H - Diagnostic Test Radiology reviewed: Image reviewed, Reports reviewed Radiology results interpreted by me: 05/03/16 20:40 Chest x-ray: No acute infiltrate Discharge - Discharge Clinical Impression: Acute bronchitis with bronchospasm Condition: Good Disposition: HOME, SELF-CARE Additional Instructions: You were seen for symptoms most consistent with bronchitis. This can take up to 12 weeks to fully resolve. This is generally due to a viral infection. Please follow-up with your primary doctor in the next 2-3 days. Return if you develop worsening cough, vomiting, fever >100.4, pass out, begin coughing blood, or have any other symptoms that are concerning to you. Please use the medications prescribed today as directed. Prescriptions: Benzonatate [Tessalon Perle 100 mg Capsule] 100 mg PO Q8HP PRN #40 cap PRN Reason: Referrals: JOVITA UP MD [Primary Care Provider] - Follow up tomorrow
[2016-05-03 21:48] VITALS: BP 122/74
== END 2016-05-03 21:22 | disposition home or self-care (01) ==
LOC: ER 18:25
DX: J20.9 Acute bronchitis, unspecified (principal); R05 Cough; R06.2 Wheezing; R00.0 Tachycardia, unspecified; I10 Essential (primary) hypertension; E11.9 Type 2 diabetes mellitus without complications
CPT/HCPCS: 94640; 99285; 96372; 36415; 85025; 80053; 71020; J1100; J7620

== ENCOUNTER 2016-06-14 16:50 | Emergency (ER) | payer OTHER ==
--- NOTE | 2016-06-14 17:46 | ER Document Report ---
ED General - General Chief Complaint: Rib Pain Stated Complaint: RIGHT SIDE TENDERNESS Time seen by provider: 17:35 Mode of Arrival: Ambulatory Information source: Patient Notes: 61-year-old female with a four-day history of sharp pain to the right lower chest upper abdomen right underneath the right costal margin. She doesn't recall any history of injury does think she's got some bruising on the anterior portion of the right lower chest. He reports she has taken 2 rounds of antibiotics for bronchitis and reports her cough is much better but she does report the right lower chest upper abdominal, discomfort gets worse with coughing or deep breathing. She denies fever, chills, nausea, vomiting, diarrhea, left-sided chest pain, back pain, dysuria. She reports chronic swelling in both lower extremities not worsened baseline and denies any history of travel or immobilization Physical Exam: General: Alert, appears well. HEENT: Normocephalic. Atraumatic. PERRLA. Extraocular movements intact. Oropharynx clear. Neck: Supple. Non-tender. Respiratory: No respiratory distress. Clear and equal breath sounds bilaterally. Mildly tender to palpation along the costal margin on the right anteriorly and laterally which localizes and reproduces patient's pain Cardiovascular: Regular rate and rhythm. PMI not displaced Abdominal: Normal Inspection. Soft, non-tender. No distension. Normal Bowel Sounds. Well-healed right upper quadrant incision consistent with cholecystectomy. Patient has no Kerr sign incision area is not tender Back: Non-tender. No deformity or step off. Extremities: Show is warm to plus pulses trace pedal edema no cyanosis no Homans sign bilaterally Neurological: Speech clear mentation normal mountain guide strength 5 out of 5 equal both upper extremities moves both lower extremities equally to command Psychological: Normal affect. Normal Mood. Skin: Warm. Dry. Normal color. TRAVEL OUTSIDE OF THE [place] IN LAST 30 DAYS: No - Related Data Allergies/Adverse Reactions: diphenhydramine HCl [From Benadryl] Adverse Reaction (Mild, Verified 05/03/16 18 :31) makes me feel funny Past Medical History - Social History Smoking Status: Never Smoker Chew tobacco use (# tins/day): No Frequency of alcohol use: None Drug Abuse: None Family History: DM, Hypertension, Malignancy - Past Medical History Cardiac Medical History: Reports: Hx Hypercholesterolemia, Hx Hypertension Pulmonary Medical History: Reports: Hx Bronchitis Denies: Hx Tuberculosis Endocrine Medical History: Reports: Hx Diabetes Mellitus Type 2 Renal/ Medical History: Denies: Hx Peritoneal Dialysis GI Medical History: Reports: Hx Gastroesophageal Reflux Disease Musculoskeltal Medical History: Reports Hx Arthritis Past Surgical History: Reports: Hx Section, Hx Cholecystectomy, Hx Orthopedic Surgery - Immunizations Immunizations up to date: Yes Hx Diphtheria, Pertussis, Tetanus Vaccination: Yes Hx Pneumococcal Vaccination: 12/02/13 Review of Systems - Review of Systems Constitutional: See HPI EENT: denies: Ear pain, Throat pain, Mouth pain Cardiovascular: See HPI Respiratory: See HPI Gastrointestinal: See HPI. denies: Blood in vomit, Black stools, Rectal bleeding Genitourinary: denies: Burning, Dysuria Female Genitourinary: Post menopausal Musculoskeletal: See HPI. denies: Back pain Skin: denies: Rash Hematologic/Lymphatic: denies: Swollen glands Neurological/Psychological: denies: Weakness, Numbness Physical Exam - Vital signs Vitals: Temp Pulse Resp BP Pulse Ox 98.3 F 102 H 16 149/81 H 96 06/14/16 16:53 06/14/16 16:53 06/14/16 16:53 06/14/16 16:53 06/14/16 16:53 Course - Re-evaluation Re-evalutation: 06/14/16 18:28 Patient's exam consistent with costochondritis. She has benign exam otherwise reports she or he has medicine at home she can take for pain. A prescription follow with her physician Dr. Sykes next week and return to emergency department for further problems - Vital Signs Vital signs: Temp Pulse Resp BP Pulse Ox 98.3 F 102 H 16 149/81 H 96 06/14/16 16:53 06/14/16 16:53 06/14/16 16:53 06/14/16 16:53 06/14/16 16:53 - Diagnostic Test Radiology reviewed: Image reviewed, Reports reviewed Discharge - Discharge Clinical Impression: Chest wall pain Condition: Stable Disposition: HOME, SELF-CARE Instructions: Anti-Inflammatory Medication ([facility]) Referrals: JOVITA SYKES MD [Primary Care Provider] - Follow up in 1 week
[2016-06-14 18:53] VITALS: BP 119/84
== END 2016-06-14 18:52 | disposition home or self-care (01) ==
LOC: ER 16:50
DX: R07.89 Other chest pain (principal); R07.81 Pleurodynia; R10.11 Right upper quadrant pain
CPT/HCPCS: 71020; 99283

== ENCOUNTER 2016-07-14 11:11 | Emergency (ER) | payer OTHER ==
--- NOTE | 2016-07-14 11:20 | ER Document Report ---
ED General - General Chief Complaint: Arm Pain Stated Complaint: LEFT ARM PAIN Time Seen by Provider: 07/14/16 11:12 Mode of Arrival: Ambulatory Information source: Patient Notes: 61-year-old female no previous history of DVTs or PEs presents with complaints of left upper extremity pain swelling of one week duration. Patient denies any fevers or chills chest pain shortness breath. Patient denies any traumatic injuries denies any DVT or PE risk factors Patient notes it hurts with movement, pain is worst in the tricep muscle TRAVEL OUTSIDE OF THE [place] IN LAST 30 DAYS: No - HPI Onset: Last week Onset/Duration: Persistent Quality of pain: Achy Severity: Mild Pain Level: 1 Associated symptoms: Body/muscle aches Exacerbated by: Movement Relieved by: Denies Similar symptoms previously: No Recently seen / treated by doctor: No - Related Data Allergies/Adverse Reactions: diphenhydramine HCl [From Benadryl] Adverse Reaction (Mild, Verified 07/14/16 11 :13) makes me feel funny Past Medical History - Social History Smoking Status: Never Smoker Cigarette use (# per day): No Chew tobacco use (# tins/day): No Smoking Education Provided: No Frequency of alcohol use: None Drug Abuse: None Family History: DM, Hypertension, Malignancy Patient has suicidal ideation: No Patient has homicidal ideation: No - Past Medical History Cardiac Medical History: Reports: Hx Hypercholesterolemia, Hx Hypertension Pulmonary Medical History: Reports: Hx Bronchitis Denies: Hx Tuberculosis Endocrine Medical History: Reports: Hx Diabetes Mellitus Type 2 Renal/ Medical History: Denies: Hx Peritoneal Dialysis GI Medical History: Reports: Hx Gastroesophageal Reflux Disease Musculoskeltal Medical History: Reports Hx Arthritis Past Surgical History: Reports: Hx Section, Hx Cholecystectomy, Hx Orthopedic Surgery - Immunizations Immunizations up to date: Yes Hx Diphtheria, Pertussis, Tetanus Vaccination: Yes Hx Pneumococcal Vaccination: 12/02/13 Review of Systems - Review of Systems Notes: PHYSICAL EXAMINATION: GENERAL: Well-appearing, well-nourished and in no acute distress. HEAD: Atraumatic, normocephalic. EYES: Pupils equal round and reactive to light, extraocular movements intact, conjunctiva are normal. ENT: Nares patent, oropharynx clear without exudates. Moist mucous membranes. NECK: Normal range of motion, supple without lymphadenopathy LUNGS: Breath sounds clear to auscultation bilaterally and equal. No wheezes rales or rhonchi. HEART: Regular rate and rhythm without murmurs ABDOMEN: Soft, nontender, nondistended abdomen. No guarding, no rebound. No masses appreciated. Female : deferred Musculoskeletal: Left upper extremity tenderness pinpoint in the tricep no obvious ecchymosis cellulitic component. NEUROLOGICAL: Cranial nerves grossly intact. Normal speech, normal gait. Normal sensory, motor exams PSYCH: Normal mood, normal affect. SKIN: Warm, Dry, normal turgor, no rashes or lesions noted. Physical Exam - Vital signs Vitals: Temp Pulse Resp BP Pulse Ox 98.2 F 101 H 16 144/95 H 96 07/14/16 11:14 07/14/16 11:14 07/14/16 11:14 07/14/16 11:14 07/14/16 11:14 Course - Re-evaluation Re-evalutation: 07/14/16 11:20 Doppler pending at this time 07/14/16 14:07 Ultrasound noted no acute abnormality, I believe the patient's pain is secondary to her diabetes. Given that there is no pericardial no sign of infection no trauma and this does not appear to be cardiac in nature since it hurts with movement and is easily reproducible I believe discharge is appropriate After performing a Medical Screening Examination, I estimate there is LOW risk for RUPTURED ESOPHAGUS, PNEUMOTHORAX, PULMONARY EMBOLISM, ACUTE CORONARY SYNDROME, OR THORACIC AORTIC DISSECTION, thus I consider the discharge disposition reasonable. I have reevaluated this patient multiple times and no significant life threatening changes are noted. The patient and I have discussed the diagnosis and risks, and we agree with discharging home with close follow-up. We also discussed returning to the Emergency Department immediately if new or worsening symptoms occur. We have discussed the symptoms which are most concerning (e.g., bloody sputum, worsening pain or shortness of breath) that necessitate immediate return. - Vital Signs Vital signs: Temp Pulse Resp BP Pulse Ox 97.9 F 100 18 148/91 H 97 07/14/16 14:00 07/14/16 14:00 07/14/16 14:00 07/14/16 14:00 07/14/16 14:00 - Diagnostic Test Radiology reviewed: Image reviewed, Reports reviewed - Report given to patient Discharge - Discharge Clinical Impression: Left arm pain, Neuropathy Condition: Stable Disposition: HOME, SELF-CARE Instructions: Neuropathy ([facility]) Additional Instructions: Follow up with your physician tomorrow for further care or return to the ED IMMEDIATELY if symptoms worsen or new concerns occur. If you cannot afford to follow up with your primary care physician a list of low cost clinics have been provided at the end of your discharge papers as well.
[2016-07-14 14:01] VITALS: BP 148/91
== END 2016-07-14 14:23 | disposition home or self-care (01) ==
LOC: ER 11:11
DX: G62.9 Polyneuropathy, unspecified (principal); M79.602 Pain in left arm; M79.89 Other specified soft tissue disorders
CPT/HCPCS: 93971; 99283

== ENCOUNTER → 2016-09-11 | Outpatient (CLI) | payer OTHER | LOC: OD 10:52 | PROVIDERS: ATTEND Family Medicine | DX: E11.9 Type 2 diabetes mellitus without complications (principal) | CPT/HCPCS: 36415; 83036 ==

== ENCOUNTER 2016-10-09 12:43 | Emergency (ER) | payer OTHER ==
--- NOTE | 2016-10-09 13:00 | ER Document Report ---
ED Medical Screen (RME) - General Chief Complaint: Fever Stated Complaint: COUGH Time Seen by Provider: 10/09/16 12:58 Notes: Patient presents stating that she has felt weak and had a fever to 100.1 at home. She also states she has had cough and congestion productive of yellow sputum. No vomiting or diarrhea. TRAVEL OUTSIDE OF THE [place] IN LAST 30 DAYS: No - Related Data Allergies/Adverse Reactions: diphenhydramine HCl [From Benadryl] Adverse Reaction (Mild, Verified 07/14/16 11 :13) makes me feel funny Past Medical History - Social History Frequency of alcohol use: None Drug Abuse: None Family history: Reviewed & Not Pertinent - Past Medical History Cardiac Medical History: Reports: Hx Hypercholesterolemia, Hx Hypertension Pulmonary Medical History: Reports: Hx Bronchitis Denies: Hx Tuberculosis Endocrine Medical History: Reports: Hx Diabetes Mellitus Type 2 Renal/ Medical History: Denies: Hx Peritoneal Dialysis GI Medical History: Reports: Hx Gastroesophageal Reflux Disease Musculoskeltal Medical History: Reports Hx Arthritis Past Surgical History: Reports: Hx Section, Hx Cholecystectomy, Hx Orthopedic Surgery - Immunizations Immunizations up to date: Yes Hx Diphtheria, Pertussis, Tetanus Vaccination: Yes Physical Exam - Vital signs Vitals: Temp Pulse BP Pulse Ox 98.7 F 100 146/80 H 95 10/09/16 12:47 10/09/16 12:47 10/09/16 12:47 10/09/16 12:47 Course - Vital Signs Vital signs: Temp Pulse Resp BP Pulse Ox 98.7 F 100 146/80 H 95 10/09/16 12:47 10/09/16 12:47 10/09/16 12:47 10/09/16 12:47
[2016-10-09 13:30] LABS: ABSOLUTE EOSINOPHILS # (AUTO) 0.2 10^3/uL (0.0-0.6); ABSOLUTE LYMPHOCYTES (AUTO) 2.3 10^3/uL (0.5-4.7); ABSOLUTE MONOCYTES (AUTO) 0.6 10^3/uL (0.1-1.4); ABSOLUTE NEUT (AUTO) 4.6 10^3/uL (1.7-8.2); BASOPHILS % (AUTO) 0.4 % (0-2); EOSINOPHILS % (AUTO) 2.6 % (0-6); HEMATOCRIT 37.1 % (36.0-47.0); HEMOGLOBIN 12.7 g/dL (12.0-15.5); LYMPHOCYTES % (AUTO) 29.8 % (13-45); MEAN CORPUSCULAR HGB CONC 34.3 g/dL (32.0-36.0); MEAN CORPUSCULAR VOLUME 90 fl (80-97); MONOCYTES % (AUTO) 7.8 % (3-13); RED BLOOD COUNT 4.11 10^6/uL (3.72-5.28); RED CELL DISTRIBUTION WIDTH 13.1 % (11.5-14.0); SEGMENTED NEUTROPHILS % (AUTO) 59.4 % (42-78); WHITE BLOOD COUNT 7.7 10^3/uL (4.0-10.5)
[2016-10-09 13:50] LABS: ALANINE AMINOTRANSFERASE 53 U/L (9-52); ALBUMIN 4.2 g/dL (3.5-5.0); ALKALINE PHOSPHATASE 85 U/L (38-126); ANION GAP 14 (5-19); ASPARTATE AMINO TRANSFERASE 42 U/L (14-36); BILIRUBIN,DIRECT 0.3 mg/dL (0.0-0.4); BILIRUBIN,TOTAL 0.7 mg/dL (0.2-1.3); BLOOD UREA NITROGEN 19 mg/dL (7-20); CALCIUM 9.3 mg/dL (8.4-10.2); CARBON DIOXIDE 29 mmol/L (22-30); CHLORIDE 100 mmol/L (98-107); GLUCOSE 151 mg/dL (75-110); POTASSIUM 3.8 mmol/L (3.6-5.0); SODIUM 142.8 mmol/L (137-145); TOTAL PROTEIN 7.8 g/dL (6.3-8.2)
--- NOTE | 2016-10-09 14:12 | RADIOLOGY REPORT (SQ) ---
EXAM DESCRIPTION: CHEST PA/LAT COMPLETED DATE/TIME: 10/09/2016 1:22 pm REASON FOR STUDY: cough COMPARISON: 06/14/2016 EXAM PARAMETERS: NUMBER OF VIEWS: two views TECHNIQUE: Digital Frontal and Lateral radiographic views of the chest acquired. RADIATION DOSE: NA LIMITATIONS: none FINDINGS: LUNGS AND PLEURA: No opacities, masses or pneumothorax. No pleural effusion. MEDIASTINUM AND HILAR STRUCTURES: No masses or contour abnormalities. HEART AND VASCULAR STRUCTURES: Heart normal size. No evidence for failure. BONES: No acute findings. HARDWARE: None in the chest. OTHER: No other significant finding. IMPRESSION: NO SIGNIFICANT RADIOGRAPHIC FINDING IN THE CHEST. TECHNICAL DOCUMENTATION: JOB ID: [id number] [employer]- All Rights Reserved
--- NOTE | 2016-10-09 14:49 | ER Document Report ---
ED Respiratory Problem - General Mode of Arrival: Ambulatory Information source: Patient TRAVEL OUTSIDE OF THE [place] IN LAST 30 DAYS: No - HPI Patient complains to provider of: Cough Onset: Other Duration: Worse/persistent Associated symptoms: None <ANA KAPLAN - Last Filed: 10/09/16 15:15> <MARYBEL STONE - Last Filed: 10/09/16 22:48> - General Chief Complaint: Fever Stated Complaint: COUGH Time Seen by Provider: 10/09/16 12:58 Notes: Patient is a 61-year-old female who presents to the emergency department today with complaints of a cough a 5 day duration. Patient states overnight last night she was developing "low-grade fevers". Patient denies any sick contacts. Patient denies a sore throat. Patient states her reason for coming in today was her inability to sleep secondary to cough. (ANA KAPLAN) - Related Data Allergies/Adverse Reactions: diphenhydramine HCl [From Benadryl] Adverse Reaction (Mild, Verified 07/14/16 11 :13) makes me feel funny Past Medical History - General Information source: Patient - Social History Smoking Status: Never Smoker Cigarette use (# per day): No Frequency of alcohol use: None Drug Abuse: None Lives with: Family Family History: Reviewed & Not Pertinent, DM, Hypertension, Malignancy Patient has suicidal ideation: No Patient has homicidal ideation: No - Past Medical History Cardiac Medical History: Reports: Hx Hypercholesterolemia, Hx Hypertension Pulmonary Medical History: Reports: Hx Bronchitis Endocrine Medical History: Reports: Hx Diabetes Mellitus Type 2 GI Medical History: Reports: Hx Gastroesophageal Reflux Disease Musculoskeltal Medical History: Reports Hx Arthritis Past Surgical History: Reports: Hx Section, Hx Cholecystectomy, Hx Orthopedic Surgery - Immunizations Immunizations up to date: Yes Hx Diphtheria, Pertussis, Tetanus Vaccination: Yes Hx Pneumococcal Vaccination: 12/02/13 <ANA KAPLAN - Last Filed: 10/09/16 15:15> Review of Systems - Review of Systems Constitutional: See HPI, Fever - "low grade" 99s EENT: denies: Throat pain Cardiovascular: No symptoms reported Respiratory: See HPI, Cough Gastrointestinal: No symptoms reported Genitourinary: No symptoms reported Female Genitourinary: No symptoms reported Musculoskeletal: No symptoms reported Skin: No symptoms reported Hematologic/Lymphatic: No symptoms reported Neurological/Psychological: No symptoms reported -: Yes All other systems reviewed and negative <ANA KAPLAN - Last Filed: 10/09/16 15:15> Physical Exam <ANA KAPLAN - Last Filed: 10/09/16 15:15> <MARYBEL STONE - Last Filed: 10/09/16 22:48> - Vital signs Vitals: Temp Pulse BP Pulse Ox 98.7 F 100 146/80 H 95 10/09/16 12:47 10/09/16 12:47 10/09/16 12:47 10/09/16 12:47 - Notes Notes: Physical Exam: General: Alert, appears uncomfortable. HEENT: Normocephalic. Atraumatic. PERRL. Extraocular movements intact. Oropharynx clear. Neck: Supple. Non-tender. Respiratory: No respiratory distress. Clear and equal breath sounds bilaterally. Cardiovascular: Regular rate and rhythm. Abdominal: Normal Inspection. Non-tender. No distension. Normal Bowel Sounds. Back: Non-tender. No deformity or step off. Extremities: Moves all four extremities. Upper extremities: Normal inspection. Normal ROM. Lower extremities: Normal inspection. No edema. Normal ROM. Neurological: Normal cognition. AAOx4. Normal speech. Psychological: Normal affect. Normal Mood. Skin: Warm. Dry. Normal color. (ANA KAPLAN) Course - Laboratory Result Diagrams: 10/09/16 13:12 10/09/16 13:12 <ANA KAPLAN - Last Filed: 10/09/16 15:15> - Laboratory Result Diagrams: 10/09/16 13:12 10/09/16 13:12 - Diagnostic Test Radiology reviewed: Reports reviewed <MARYBEL STONE - Last Filed: 10/09/16 22:48> - Re-evaluation Re-evalutation: 10/09/16 Patient with no wheezing or difficulty breathing. Chest x-ray with no evidence for pneumonia. Blood work within normal limits. Patient is stating that she cannot sleep because of coughing. Patient is to continue with Tessalon Perles. She can take Tylenol with codeine at night as needed for cough. I do not think that the patient needs an antibiotic at this time although she may have a difficult time getting into her doctor. She has been given azithromycin if she spikes a fever, although she has not had one here. Understands and agrees with plan. Stable for discharge home. (MARYBEL STONE) - Vital Signs Vital signs: Temp Pulse Resp BP Pulse Ox 98.9 F 78 17 138/84 H 100 10/09/16 15:10 10/09/16 15:10 10/09/16 15:10 10/09/16 15:10 10/09/16 15:10 - Laboratory Laboratory results interpreted by me: 10/09/16 13:12 Glucose 151 H AST 42 H ALT 53 H Discharge <ANA KAPLAN - Last Filed: 10/09/16 15:15> <MARYBEL STONE - Last Filed: 10/09/16 22:48> - Discharge Clinical Impression: Cough Condition: Stable Disposition: HOME, SELF-CARE Instructions: Viral Syndrome ([facility]) Additional Instructions: Please follow-up with your doctor this week. If you cannot get into see your doctor, and you spike another fever, start taking the antibiotic. Prescriptions: Acetaminophen with Codeine [Tylenol with Codeine #3 Tablet] 1 tab PO BIDP PRN # 20 tab PRN Reason: Azithromycin [Zithromax 250 mg Tablet] 250 mg PO ASDIR PRN #6 tablet PRN Reason: Forms: Return to Work Referrals: [facility] [Primary Care Provider] - Follow up as needed Scribe Attestation: 10/09/16 22:48 I personally performed the services described in the documentation, reviewed and edited the documentation which was dictated to the scribe in my presence, and it accurately records my words and actions. (MARYBEL STONE) Scribe Documentation - Scribe Written by Jessicaibe:: Zhang Callahan, 10/09/2016 1515 acting as scribe for :: Taisha <ANA KAPLAN - Last Filed: 10/09/16 15:15>
[2016-10-09 15:14] VITALS: BP 138/84
== END 2016-10-09 15:10 | disposition home or self-care (01) ==
LOC: ER 12:43
DX: R05 Cough (principal); R50.9 Fever, unspecified
CPT/HCPCS: 36415; 71020; 80053; 85025; 99284

== ENCOUNTER 2016-11-28 14:16 | Emergency (ER) | payer OTHER ==
[2016-11-28] MEDS ORDERED: PENICILLIN V POTASSIUM 500 MG TABLET PO ONE (16:05)
[2016-11-28] MEDS ORDERED: DEXAMETHASONE SOD PHOS INJ 10 MG/1 ML VIAL IM ONE (16:08)
--- NOTE | 2016-11-28 16:13 | ER Document Report ---
ED ENT - General Chief Complaint: Sore Throat Stated Complaint: SORE THROAT, NECK PAIN Time Seen by Provider: 11/28/16 15:39 Mode of Arrival: Ambulatory Information source: Patient Notes: 31-year-old female presents to ED for complaint of sore throat with pain in the front of her neck where her lymph nodes are since Saturday night. She states she has had some coughing and a fever last night of 102.3. TRAVEL OUTSIDE OF THE [place] IN LAST 30 DAYS: No - HPI Patient complains to provider of: Throat problem - In the Onset: Other Onset/Duration: Gradual, Worse Quality of pain: Sharp, Stabbing Severity: Moderate Pain Level: 4 Context: Recent Illness Location of pain: Throat Associated symptoms: Fever, Sore throat, Other Similar symptoms previously: Yes Recently seen / treated by doctor: No - Related Data Allergies/Adverse Reactions: diphenhydramine HCl [From Benadryl] Adverse Reaction (Mild, Verified 11/28/16 14 :19) makes me feel funny Past Medical History - General Information source: Patient - Social History Smoking Status: Never Smoker Cigarette use (# per day): No Chew tobacco use (# tins/day): No Smoking Education Provided: No Frequency of alcohol use: None Drug Abuse: None Lives with: Alone Family History: CAD, DM, Hyperlipidemia, Hypertension, Malignancy, Thyroid Disfunction. denies: Arthritis, COPD, CVA Patient has suicidal ideation: No Patient has homicidal ideation: No - Past Medical History Cardiac Medical History: Reports: Hx Hypercholesterolemia, Hx Hypertension Pulmonary Medical History: Reports: Hx Bronchitis EENT Medical History: Reports: None Neurological Medical History: Reports: None Endocrine Medical History: Reports: Hx Diabetes Mellitus Type 2 Renal/ Medical History: Reports: None Malignancy Medical History: Reports: None GI Medical History: Reports: Hx Gastroesophageal Reflux Disease Musculoskeltal Medical History: Reports Hx Arthritis, Reports Hx Musculoskeletal Deformity Skin Medical History: Reports None Psychiatric Medical History: Reports: None Traumatic Medical History: Reports: None Infectious Medical History: Reports: None Past Surgical History: Reports: Hx Section, Hx Cholecystectomy, Hx Orthopedic Surgery - Carpal tunnel - Immunizations Immunizations up to date: Yes Hx Diphtheria, Pertussis, Tetanus Vaccination: Yes Hx Pneumococcal Vaccination: 12/02/13 Review of Systems - Review of Systems Constitutional: Fever, Recent illness EENT: Throat pain Cardiovascular: No symptoms reported Respiratory: No symptoms reported Gastrointestinal: No symptoms reported Genitourinary: No symptoms reported Female Genitourinary: No symptoms reported Musculoskeletal: No symptoms reported Skin: No symptoms reported Hematologic/Lymphatic: No symptoms reported Neurological/Psychological: No symptoms reported Physical Exam - Vital signs Vitals: Temp Pulse Resp BP Pulse Ox 98.8 F 91 20 134/76 H 95 11/28/16 14:23 11/28/16 14:23 11/28/16 14:23 11/28/16 14:23 11/28/16 14:23 Interpretation: Normal - General General appearance: Appears well, Alert - HEENT Head: Normocephalic, Atraumatic Eyes: Normal Pupils: PERRL Ears: Normal External canal: Normal Tympanic membrane: Normal Sinus: Normal Nasal: Normal Mouth/Lips: Normal Mucous membranes: Normal Pharynx: Erythema, Exudate, Tonsillar hypertrophy. No: Peritonsillar abscess, Post nasal drainage, Retropharyngeal abscess, Uvular edema, Potential airway comprom. Neck: Anterior cervical chain - Respiratory Respiratory status: No respiratory distress Chest status: Nontender Breath sounds: Normal Chest palpation: Normal - Cardiovascular Rhythm: Regular Heart sounds: Normal auscultation Murmur: No - Abdominal Inspection: Normal Distension: No distension Bowel sounds: Normal Tenderness: Nontender Organomegaly: No organomegaly - Back Back: Normal, Nontender - Extremities General upper extremity: Normal inspection, Nontender, Normal color, Normal ROM , Normal temperature General lower extremity: Normal inspection, Nontender, Normal color, Normal ROM , Normal temperature, Normal weight bearing. No: Kristyn's sign - Neurological Neuro grossly intact: Yes Cognition: Normal Orientation: AAOx4 [place] Coma Scale Eye Opening: Spontaneous [place] Coma Scale Verbal: Oriented Valentín Coma Scale Motor: Obeys Commands [place] Coma Scale Total: 15 Speech: Normal Motor strength normal: LUE, RUE, LLE, RLE Sensory: Normal - Psychological Associated symptoms: Normal affect, Normal mood - Skin Skin Temperature: Warm Skin Moisture: Dry Skin Color: Normal Course - Re-evaluation Re-evalutation: 11/28/16 21:34 Assessment consistent with a strep pharyngitis. Patient was treated with Pen-V K and steroids. Patient was discharged home with prescription for Penicillin VK - Vital Signs Vital signs: Temp Pulse Resp BP Pulse Ox 98.5 F 89 16 129/85 H 96 11/28/16 16:09 11/28/16 16:09 11/28/16 16:09 11/28/16 16:09 11/28/16 16:09 Discharge - Discharge Clinical Impression: Strep pharyngitis Condition: Stable Disposition: HOME, SELF-CARE Instructions: Family Physicians / Practices Additional Instructions: STREP THROAT: Your sore throat is due to the streptococcus germ (strep throat). Strep throat usually makes you feel quite ill with fever and aches, headache, swollen sore throat, and tender bumps under the angles of the jaw. Strep throat requires antibiotic treatment. Although the sore throat may go away by itself, complications such as rheumatic fever, kidney disease, or throat abscess can occur. We usually prescribe antibiotics by mouth. Be sure to take the medicine until it's gone. If you stop early, the strep may come back. If you are vomiting, are severely ill, or can't remember to take pills, we can give you an antibiotic shot. Take acetaminophen or ibuprofen for pain and fever. Sip frequent clear liquids, or use popsicles or ice chips. Anesthetic sprays or lozenges may help. Make sure the air in the room is not too dry. Avoid using decongestants or antihistamines. Call the doctor if there is no improvement in three days, or if you have difficulty breathing, increasing throat pain, high fever, rash, or frequent vomiting. PENICILLIN V K: You have been given a prescription for Penicillin VK. Your physician has determined that this is the best antibiotic for your condition. Pen VK can be taken with meals, however more of the antibiotic gets into the bloodstream if it's taken on an empty stomach. Penicillin usually has no side effects. However, allergy to penicillins is common. If you have had an allergic reaction to any drug of the penicillin family, you should never take any other penicillin. Notify your doctor at once if you develop hives, itching, swelling, faintness, or shortness of breath. STEROID MEDICATION: You have been given a medicine of the cortisone/steroid class. This medication is used to control inflammation or allergy. It is usually only given for a short period of time, until the acute process subsides. There are usually no side effects from short-term use of cortisone-like medications. Some persons feel an increased sense of well-being and are not sleepy at bedtime. Long-term use of cortisone medications is best avoided, unless required for a severe condition. If your condition does not remit, or relapses after the course of corticosteroid medication, you should consult your physician. FOLLOW-UP CARE: If you have been referred to a physician for follow-up care, call the physician s office for an appointment as you were instructed or within the next two days. If you experience worsening or a significant change in your symptoms, notify the physician immediately or return to the Emergency Department at any time for re-evaluation. Prescriptions: Penicillin V Potassium [Penicillin Vk 500 mg Tablet] 500 mg PO BID #20 tablet Forms: Elevated Blood Pressure
[2016-11-28 16:18] VITALS: BP 129/85
== END 2016-11-28 16:18 | disposition home or self-care (01) ==
LOC: ER 14:16
DX: J02.0 Streptococcal pharyngitis (principal); R05 Cough; I10 Essential (primary) hypertension; E11.9 Type 2 diabetes mellitus without complications
CPT/HCPCS: 99282; J1100

== ENCOUNTER 2016-12-13 08:26 | Emergency (ER) | payer SELFPAY ==
--- NOTE | 2016-12-13 09:26 | ER Document Report ---
ED Respiratory Problem <LAURA ALBRECHT - Last Filed: 12/13/16 10:32> - General Mode of Arrival: Ambulatory Information source: Patient TRAVEL OUTSIDE OF THE [place] IN LAST 30 DAYS: No <ANA KAPLAN - Last Filed: 12/13/16 14:02> - General Chief Complaint: Cough Stated Complaint: COUGH Time Seen by Provider: 12/13/16 09:01 Notes: Patient is a 61-year-old female that presents to the emergency department today with complaints of a cough for the last 3-4 days. Patient states that she was seen about 3 or 4 weeks ago with strep throat and a cough. Patient states it cleared up and then came back. Patient states she feels like she wheezes at night and she has used her at home nebulizer which relieved her symptoms. ( ANA KAPLAN) - Related Data Allergies/Adverse Reactions: diphenhydramine HCl [From Benadryl] Adverse Reaction (Mild, Verified 12/13/16 08 :29) makes me feel funny Past Medical History - General Information source: Patient - Social History Smoking Status: Never Smoker Chew tobacco use (# tins/day): No Frequency of alcohol use: None Drug Abuse: None Lives with: Family Family History: CAD, DM, Hyperlipidemia, Hypertension, Malignancy, Thyroid Disfunction Patient has suicidal ideation: No - Past Medical History Cardiac Medical History: Reports: Hx Hypercholesterolemia, Hx Hypertension Pulmonary Medical History: Reports: Hx Bronchitis Endocrine Medical History: Reports: Hx Diabetes Mellitus Type 2 GI Medical History: Reports: Hx Gastroesophageal Reflux Disease Musculoskeltal Medical History: Reports Hx Arthritis, Reports Hx Musculoskeletal Deformity Past Surgical History: Reports: Hx Section, Hx Cholecystectomy, Hx Orthopedic Surgery - Carpal tunnel - Immunizations Immunizations up to date: Yes Hx Diphtheria, Pertussis, Tetanus Vaccination: Yes Hx Pneumococcal Vaccination: 12/02/13 <ANA KAPLAN - Last Filed: 12/13/16 14:02> Review of Systems - Review of Systems Constitutional: No symptoms reported EENT: No symptoms reported Cardiovascular: No symptoms reported Respiratory: See HPI, Cough, Wheezing Gastrointestinal: No symptoms reported Genitourinary: No symptoms reported Female Genitourinary: No symptoms reported Musculoskeletal: No symptoms reported Skin: No symptoms reported Hematologic/Lymphatic: No symptoms reported Neurological/Psychological: No symptoms reported -: Yes All other systems reviewed and negative <ANA KAPLAN - Last Filed: 12/13/16 14:02> Physical Exam <LAURA ALBRECHT - Last Filed: 12/13/16 10:32> <ANA KAPLAN - Last Filed: 12/13/16 14:02> - Vital signs Vitals: Temp Pulse Resp BP Pulse Ox 98.1 F 89 18 155/75 H 96 12/13/16 08:31 12/13/16 08:31 12/13/16 08:31 12/13/16 08:31 12/13/16 08:31 - Notes Notes: Physical Exam: General: Alert, appears well. HEENT: Normocephalic. Atraumatic. PERRL. Extraocular movements intact. Oropharynx clear. TMs are clear bilaterally. No posterior pharynx erythema. Neck: Supple. Non-tender. Respiratory: No respiratory distress. Rhonchi and wheezing bilaterally. Cardiovascular: Regular rate and rhythm. Abdominal: Obese.Normal Inspection. Non-tender. No distension. Normal Bowel Sounds. Back: Non-tender. No deformity or step off. Extremities: Moves all four extremities. Upper extremities: Normal inspection. Normal ROM. Lower extremities: Normal inspection. No edema. Normal ROM. Neurological: Normal cognition. AAOx4. Normal speech. Psychological: Normal affect. Normal Mood. Skin: Warm. Dry. Normal color. (ANA KAPLAN) Course - Diagnostic Test Radiology reviewed: Image reviewed, Reports reviewed - Chest x-ray is unremarkable <LAURA ALBRECHT - Last Filed: 12/13/16 10:32> - Vital Signs Vital signs: Temp Pulse Resp BP Pulse Ox 98.0 F 78 14 147/72 H 100 12/13/16 10:47 12/13/16 10:47 12/13/16 10:47 12/13/16 10:47 12/13/16 10:47 Discharge <LAURA ALBRECHT - Last Filed: 12/13/16 10:32> <ANA KAPLAN - Last Filed: 12/13/16 14:02> - Discharge Clinical Impression: Viral upper respiratory tract infection with cough Condition: Stable Disposition: HOME, SELF-CARE Additional Instructions: Upper Respiratory Illness You have a viral infection of the respiratory passages -- a "cold." This common infection causes nasal congestion, drainage, and often sore throat and cough. It is caused by a virus and is highly contagious. The disease usually lasts a week or more, though the worst symptoms are usually over in 3 or 4 days. There is no "cure" for the viral infection -- it must run its course. If there is a complication, such as bacterial infection in the nose, sinuses, middle ear, or bronchial tubes, antibiotics may be required, but antibiotics won 't affect the virus. If you smoke, you should STOP!! Drink plenty of fluids. A humidifier may help. An expectorant medication or decongestant may make you more comfortable. Use acetaminophen or ibuprofen for fever or aches. See the doctor if fever persists over two or three days, if there is any significant worsening of your symptoms, or if you simply fail to improve as expected. Referrals: JOVITA [facility] MD [Primary Care Provider] - Follow up as needed Scribe Attestation: 12/13/16 10:32 I personally performed the services described in the documentation, reviewed and edited the documentation which was dictated to the scribe in my presence, and it accurately records my words and actions. (LAURA ALBRECHT) Scribe Documentation - Scribe Written by Zhang:: Zhang Callahan, 12/13/2016 1106 acting as scribe for :: [place] <ANA KAPLAN - Last Filed: 12/13/16 14:02>
--- NOTE | 2016-12-13 10:02 | RADIOLOGY REPORT (SQ) ---
EXAM DESCRIPTION: CHEST PA/LAT COMPLETED DATE/TIME: 12/13/2016 9:53 am REASON FOR STUDY: cough COMPARISON: Two-view chest 10/09/2016, 05/10/2014 CT chest 04/19/2016 EXAM PARAMETERS: NUMBER OF VIEWS: two views TECHNIQUE: Digital Frontal and Lateral radiographic views of the chest acquired. RADIATION DOSE: NA LIMITATIONS: none FINDINGS: LUNGS AND PLEURA: No opacities, masses or pneumothorax. No pleural effusion. MEDIASTINUM AND HILAR STRUCTURES: No masses or contour abnormalities. HEART AND VASCULAR STRUCTURES: Heart normal size. No evidence for failure. BONES: No acute findings. HARDWARE: Clips right upper quadrant post cholecystectomy OTHER: No other significant finding. IMPRESSION: NO SIGNIFICANT RADIOGRAPHIC FINDING IN THE CHEST. TECHNICAL DOCUMENTATION: JOB ID: [id number] [employer]- All Rights Reserved
[2016-12-13 10:49] VITALS: BP 147/72
== END 2016-12-13 10:47 | disposition home or self-care (01) ==
LOC: ER 08:26
DX: J06.9 Acute upper respiratory infection, unspecified (principal); B97.89 Other viral agents as the cause of diseases classified elsewhere; R05 Cough; R06.2 Wheezing; I10 Essential (primary) hypertension; E11.9 Type 2 diabetes mellitus without complications
CPT/HCPCS: 71020; 99283

== ENCOUNTER 2017-02-02 19:13 | Emergency (ER) | payer OTHER ==
--- NOTE | 2017-02-02 19:33 | ER Document Report ---
ED Medical Screen (RME) - General Chief Complaint: Abdominal Pain Stated Complaint: ABDOMINAL PAIN Time Seen by Provider: 02/02/17 19:31 Mode of Arrival: Ambulatory Information source: Patient TRAVEL OUTSIDE OF THE [place] IN LAST 30 DAYS: No - HPI Patient complains to provider of: abd pain Onset: Other - pt with 2 day h/o of R-sided Abd pain (she is s/p cholecystectomy ). She denies N/V but states pain got worse this evening - Related Data Allergies/Adverse Reactions: diphenhydramine HCl [From Benadryl] Adverse Reaction (Mild, Verified 12/13/16 08 :29) makes me feel funny Past Medical History - Social History Family history: Reviewed & Not Pertinent - Past Medical History Cardiac Medical History: Reports: Hx Hypercholesterolemia, Hx Hypertension Pulmonary Medical History: Reports: Hx Bronchitis Denies: Hx Tuberculosis Endocrine Medical History: Reports: Hx Diabetes Mellitus Type 2 Renal/ Medical History: Denies: Hx Peritoneal Dialysis GI Medical History: Reports: Hx Gastroesophageal Reflux Disease Musculoskeltal Medical History: Reports Hx Arthritis, Reports Hx Musculoskeletal Deformity Past Surgical History: Reports: Hx Section, Hx Cholecystectomy, Hx Orthopedic Surgery - Carpal tunnel - Immunizations Immunizations up to date: Yes Hx Diphtheria, Pertussis, Tetanus Vaccination: Yes Physical Exam - Vital signs Vitals: Temp Pulse Resp BP Pulse Ox 97.7 F 97 16 142/84 H 96 02/02/17 19:27 02/02/17 19:27 02/02/17 19:27 02/02/17 19:27 02/02/17 19:27 Course - Vital Signs Vital signs: Temp Pulse Resp BP Pulse Ox 97.7 F 97 16 142/84 H 96 02/02/17 19:27 02/02/17 19:27 02/02/17 19:27 02/02/17 19:27 02/02/17 19:27
[2017-02-02 20:23] LABS: APPEARANCE,URINE CLEAR; BILIRUBIN,URINE NEGATIVE (NEGATIVE); GLUCOSE, URINE NEGATIVE (NEGATIVE); KETONES,URINE NEGATIVE (NEGATIVE); LEUKOCYTE ESTERASE,URINE SMALL (NEGATIVE); NITRITE,URINE NEGATIVE (NEGATIVE); PROTEIN,URINE NEGATIVE (NEGATIVE); URINE SPECIFIC GRAVITY 1.008; UROBILINOGEN,URINE NEGATIVE mg/dL (<2.0)
[2017-02-02 20:24] LABS: ABSOLUTE EOSINOPHILS # (AUTO) 0.3 10^3/uL (0.0-0.6); ABSOLUTE LYMPHOCYTES (AUTO) 3.2 10^3/uL (0.5-4.7); ABSOLUTE MONOCYTES (AUTO) 0.6 10^3/uL (0.1-1.4); ABSOLUTE NEUT (AUTO) 5.2 10^3/uL (1.7-8.2); BASOPHILS % (AUTO) 0.5 % (0-2); EOSINOPHILS % (AUTO) 3.1 % (0-6); HEMATOCRIT 39.3 % (36.0-47.0); HEMOGLOBIN 13.5 g/dL (12.0-15.5); HGB HCT DIFFERENCE 1.2; LYMPHOCYTES % (AUTO) 34.3 % (13-45); MEAN CORPUSCULAR HEMOGLOBIN 30.3 pg (27.0-33.4); MEAN CORPUSCULAR HGB CONC 34.3 g/dL (32.0-36.0); MEAN CORPUSCULAR VOLUME 88 fl (80-97); RED BLOOD COUNT 4.45 10^6/uL (3.72-5.28); RED CELL DISTRIBUTION WIDTH 13.3 % (11.5-14.0); SEGMENTED NEUTROPHILS % (AUTO) 56.1 % (42-78); WHITE BLOOD COUNT 9.3 10^3/uL (4.0-10.5)
[2017-02-02 20:26] LABS: BACTERIA,URINE 4+ /HPF
[2017-02-02 20:38] LABS: ALANINE AMINOTRANSFERASE 34 U/L (9-52); ALBUMIN 4.6 g/dL (3.5-5.0); ALKALINE PHOSPHATASE 85 U/L (38-126); ANION GAP 15 (5-19); ASPARTATE AMINO TRANSFERASE 27 U/L (14-36); BILIRUBIN,DIRECT 0.3 mg/dL (0.0-0.4); BILIRUBIN,TOTAL 0.5 mg/dL (0.2-1.3); BLOOD UREA NITROGEN 24 mg/dL (7-20); CALCIUM 9.9 mg/dL (8.4-10.2); CARBON DIOXIDE 31 mmol/L (22-30); CHLORIDE 96 mmol/L (98-107); CREATININE RESULT 1.13 mg/dL (0.52-1.25); GLUCOSE 114 mg/dL (75-110); LIPASE 72.6 U/L (23-300); POTASSIUM 3.5 mmol/L (3.6-5.0); SODIUM 142.4 mmol/L (137-145); TOTAL PROTEIN 7.5 g/dL (6.3-8.2)
--- NOTE | 2017-02-02 21:12 | RADIOLOGY REPORT (SQ) ---
EXAM DESCRIPTION: CT ABD/PELVIS WITH IV ONLY COMPLETED DATE/TIME: 02/02/2017 8:59 pm REASON FOR STUDY: abd pain COMPARISON: None. TECHNIQUE: CT scan of the abdomen and pelvis performed using helical scanning technique with dynamic intravenous contrast injection. No oral contrast. Images reviewed with lung, soft tissue, and bone windows. Reconstructed coronal and sagittal MPR images reviewed. Delayed images for evaluation of the urinary system also acquired. All images stored on PACS. All CT scanners at this facility use dose modulation, iterative reconstruction, and/or weight based d osing when appropriate to reduce radiation dose to as low as reasonably achievable (ALARA). [facility]: Dose Right [facility]: CareDose [facility]: Dose Right [facility]: Teradose 4D [facility]: Expediciones.mx CONTRAST TYPE AND DOSE: contrast/concentration: Isovue 370.00 mg/ml; Total Contrast Delivered: 100.0 ml; Total Saline Delivered: 72.0 ml RENAL FUNCTION: BUN 24; creatinine 1.13 RADIATION DOSE: . LIMITATIONS: Patient unable to raise arms overhead, resulting in significant beam hardening artifact . FINDINGS: LOWER CHEST: No significant findings. No nodules or infiltrates. LIVER: Normal size. No masses. No dilated ducts. SPLEEN: Normal size. No focal lesions. PANCREAS: Partially fatty replaced. No masses. No significant calcifications. No adjacent inflammati on or peripancreatic fluid collections. Pancreatic duct not dilated. GALLBLADDER: Surgically absent. ADRENAL GLANDS: No significant masses or asymmetry. RIGHT KIDNEY AND URETER: No solid masses. No significant calcifications. No hydronephrosis or hyd roureter. LEFT KIDNEY AND URETER: No solid masses. No significant calcifications. No hydronephrosis or hydr oureter. AORTA AND VESSELS: No aneurysm. No dissection. Renal arteries, SMA, celiac without stenosis. RETROPERITONEUM: No retroperitoneal adenopathy, hemorrhage or masses. BOWEL AND PERITONEAL CAVITY: No masses or inflammatory changes. No free fluid or peritoneal masses. APPENDIX: Normal. PELVIS: No mass. No free fluid. Normal bladder. ABDOMINAL WALL: No masses. No hernias. BONES: No significant or acute findings. OTHER: No other significant finding. IMPRESSION: NO SIGNIFICANT OR ACUTE FINDING IN THE ABDOMEN OR PELVIS ON CT SCAN WITH IV CONTRAST. TECHNICAL DOCUMENTATION: JOB ID: [id number] Quality ID # [id number]: Final reports with documentation of one or more dose reduction techniques (e.g., Au tomated exposure control, adjustment of the mA and/or kV according to patient size, use of iterative reconstruction technique) 2010 [employer]- All Rights Reserved
--- NOTE | 2017-02-03 | ER Document Report ---
ED GI/ - General Chief Complaint: Abdominal Pain Stated Complaint: ABDOMINAL PAIN Time Seen by Provider: 02/02/17 19:31 Mode of Arrival: Ambulatory Notes: The patient is a 62-year-old female, past medical history GERD, cholecystectomy , presents with several days of epigastric pain and burning that is worse when she eats. She had a gastric ulcer and in the 1980s. She denies nausea, vomiting, fevers, urinary symptoms, diarrhea, constipation, chest pain, shortness of breath, back pain or rash. TRAVEL OUTSIDE OF THE [place] IN LAST 30 DAYS: No - Related Data Allergies/Adverse Reactions: diphenhydramine HCl [From Benadryl] Adverse Reaction (Mild, Verified 12/13/16 08 :29) makes me feel funny Past Medical History - General Information source: Patient - Social History Smoking Status: Unknown if Ever Smoked Family History: CAD, DM, Hyperlipidemia, Hypertension, Malignancy, Thyroid Disfunction Patient has suicidal ideation: No Patient has homicidal ideation: No - Past Medical History Cardiac Medical History: Reports: Hx Hypercholesterolemia, Hx Hypertension Pulmonary Medical History: Reports: Hx Bronchitis Denies: Hx Tuberculosis Endocrine Medical History: Reports: Hx Diabetes Mellitus Type 2 Renal/ Medical History: Denies: Hx Peritoneal Dialysis GI Medical History: Reports: Hx Gastroesophageal Reflux Disease Musculoskeltal Medical History: Reports Hx Arthritis, Reports Hx Musculoskeletal Deformity Past Surgical History: Reports: Hx Section, Hx Cholecystectomy, Hx Orthopedic Surgery - Carpal tunnel - Immunizations Immunizations up to date: Yes Hx Diphtheria, Pertussis, Tetanus Vaccination: Yes Hx Pneumococcal Vaccination: 12/02/13 Review of Systems - Review of Systems Notes: REVIEW OF SYSTEMS: CONSTITUTIONAL: -fevers, -chills EENT: -eye pain, -difficulty swallowing, -nasal congestion CARDIOVASCULAR:-chest pain, -syncope. RESPIRATORY: -cough, -SOB GASTROINTESTINAL: +epigastric abdominal pain, -nausea, -vomiting, -diarrhea GENITOURINARY: -dysuria, -hematuria MUSCULOSKELETAL: -back pain, -neck pain SKIN: -rash or skin lesions. HEMATOLOGIC: -easy bruising or bleeding. LYMPHATIC: -swollen, enlarged glands. NEUROLOGICAL: -altered mental status or loss of consciousness, -headache, - neurologic symptoms PSYCHIATRIC: -anxiety, -depression. ALL OTHER SYSTEMS REVIEWED AND NEGATIVE. Physical Exam - Vital signs Vitals: Temp Pulse Resp BP Pulse Ox 97.7 F 97 16 142/84 H 96 02/02/17 19:27 02/02/17 19:27 02/02/17 19:27 02/02/17 19:27 02/02/17 19:27 - Notes Notes: PHYSICAL EXAMINATION: GENERAL: Well-appearing, well-nourished and in no acute distress. HEAD: Atraumatic, normocephalic. EYES: Pupils equal round and reactive to light, extraocular movements intact, sclera anicteric, conjunctiva are normal. ENT: nares patent, oropharynx clear without exudates. Moist mucous membranes. NECK: Normal range of motion, supple without lymphadenopathy LUNGS: Breath sounds clear to auscultation bilaterally and equal. No wheezes rales or rhonchi. HEART: Regular rate and rhythm without murmurs ABDOMEN: Soft, mild epigastric tenderness, normoactive bowel sounds. No guarding, no rebound. No masses appreciated. EXTREMITIES: Normal range of motion, no pitting or edema. No cyanosis. NEUROLOGICAL: Cranial nerves grossly intact. Normal speech, normal gait. Normal sensory and motor exams. PSYCH: Normal mood, normal affect. SKIN: Warm, Dry, normal turgor, no rashes or lesions noted. Course - Re-evaluation Re-evalutation: Patient appears very well. Blood work and CT scan sent from triage do not show any acute abnormalities. Her symptoms are consistent with gastritis and gastric ulcer. After GI cocktail, she feels much better. Will begin Prilosec twice a day and have her follow-up with her primary care physician and her GI doctor. Also instructed her to not eat spicy food or acidic food. - Vital Signs Vital signs: Temp Pulse Resp BP Pulse Ox 97.7 F 97 16 142/84 H 96 02/02/17 19:27 02/02/17 19:27 02/02/17 19:27 02/02/17 19:27 02/02/17 19:27 - Laboratory Result Diagrams: 02/02/17 19:52 02/02/17 19:52 Laboratory results interpreted by me: 02/02/17 02/02/17 19:52 19:52 Potassium 3.5 L Chloride 96 L Carbon Dioxide 31 H BUN 24 H Est GFR ( Amer) 59 L Est GFR (Non-Af Amer) 48 L Glucose 114 H Ur Leukocyte Esterase SMALL H - Diagnostic Test Radiology reviewed: Image reviewed, Reports reviewed Radiology results interpreted by me: CT A/P: NAD Discharge - Discharge Clinical Impression: Epigastric pain Condition: Stable Disposition: HOME, SELF-CARE Additional Instructions: Gastritis You have an inflammation of the stomach called gastritis. This commonly causes upper abdominal pain, nausea, and vomiting. In severe cases, bleeding of the stomach lining can occur. Gastritis can be caused by bacteria or viruses , alcohol, or stomach-irritating drugs. Begin with sips of clear liquids. Take increasing amounts of fluid over the first 24 hours. Then start small amounts of bland foods (such as dry toast , applesauce, mashed potato). Gradually resume your usual diet. You should take antacids every two hours until the pain has subsided. Acid -suppressing drugs may be prescribed as well. Avoid aspirin, caffeine, tobacco , and alcohol. If the abdominal pain worsens, or there is evidence of major bleeding in the stomach (such as black, tarry stool, bloody or black vomit, or lightheadedness), you should return immediately. Call the doctor if you aren't improved in 24 to 36 hours. Prescriptions: Omeprazole Magnesium [Prilosec Otc] 20 mg PO Q12H #14 tablet.dr Forms: Elevated Blood Pressure Referrals: JOVITA UP MD [Primary Care Provider] - Follow up as needed TOSHIA LEONARDO MD [ACTIVE STAFF] - Follow up as needed
[2017-02-03] MEDS ORDERED: METOCLOPRAMIDE HCL ORAL SOLN 10 MG/10 ML UDCUP PO ONE (00:05)
[2017-02-03] MEDS ORDERED: LIDOCAINE 2% VISCOUS SOLN 20 ML UDCUP PO ONE (00:05)
[2017-02-03] MEDS ORDERED: MAG HYDROX/AL HYDROX/SIMETH SUSP 30 ML UDCUP PO ONE (00:05)
[2017-02-03 00:20] VITALS: BP 126/72
== END 2017-02-03 00:56 | disposition home or self-care (01) ==
LOC: ER 19:13
DX: R10.13 Epigastric pain (principal); E11.9 Type 2 diabetes mellitus without complications; I10 Essential (primary) hypertension; Z87.11 Personal history of peptic ulcer disease; Z87.19 Personal history of other diseases of the digestive system; Z90.49 Acquired absence of other specified parts of digestive tract
CPT/HCPCS: 99284; 36415; 83690; 85025; 80053; 81001; 74177; J3490

== ENCOUNTER → 2017-02-05 | Outpatient (CLI) | payer OTHER ==
[2017-02-05 10:55] LABS: ANION GAP 17 (5-19); BLOOD UREA NITROGEN 23 mg/dL (7-20); CALCIUM 9.3 mg/dL (8.4-10.2); CARBON DIOXIDE 35 mmol/L (22-30); CHLORIDE 89 mmol/L (98-107); CHOLESTEROL 143.93 mg/dL (0-200); CREATININE RESULT 0.91 mg/dL (0.52-1.25); Direct HDL 52 mg/dL (>40); GLUCOSE 110 mg/dL (75-110); POTASSIUM 3.1 mmol/L (3.6-5.0); SODIUM 140.8 mmol/L (137-145); TRIGLYCERIDES 107 mg/dL (<150)
[2017-02-05 11:06] LABS: DIRECT LDL 64 mg/dL (<100)
== END ==
LOC: OD 09:14
PROVIDERS: ATTEND Family Medicine
DX: E11.65 Type 2 diabetes mellitus with hyperglycemia (principal); E78.5 Hyperlipidemia, unspecified; Z79.899 Other long term (current) drug therapy
CPT/HCPCS: 36415; 80048; 80061; 82043; 83036; 84443

== ENCOUNTER 2017-02-12 15:24 | Day surgery (SDC) | payer OTHER ==
[2017-02-12] MEDS ORDERED: NALOXONE HCL INJ/PF 0.4 MG/1 ML SDV ONE (15:47)
[2017-02-12] MEDS ORDERED: GLUCAGON,HUMAN RECOMB 1 MG INJ ONE (15:48)
[2017-02-12] MEDS ORDERED: EPINEPHRINE INJ 1 MG/10 ML DISP.SYRIN ONE (15:48)
[2017-02-12] MEDS ORDERED: FLUMAZENIL INJ 0.5 MG/5 ML VIAL ONE (15:48)
[2017-02-12] MEDS: MIDAZOLAM 2 MG/2 ML INJ ONE ×2 (16:50→17:00)
[2017-02-12] MEDS: FENTANYL CITRATE INJ/PF 100 MCG/2 ML AMPUL ONE ×2 (16:53→16:55)
--- NOTE | 2017-02-12 17:10 | Operative Report ---
Operative Report DATE OF SURGERY: 02/12/17 Operative Report: Pre-op diagnosis: Epigastric pain Post-op diagnosis: Normal EGD Surgery: Esophagogastroduodenoscopy with biopsy Medications: Versed 3mg Fentanyl 100 mcg IV push Tissue removed: Antral biopsy for pathology Procedure: After informed consent obtained from patient, the throat was sprayed with Hurricane and conscious sedation was achieved. The upper endoscope was inserted into the esophagus under direct vision and advanced into the stomach. The duodenum was entered and examined to the second part. Endoscope was then slowly pulled out of the patient as the mucosa was examined into details. Patient tolerated procedure well. Findings Esophagus: Normal Z-line at: 40 cm Antrum: Normal. Biopsy was taken Body: Normal Fundus: Normal Duodenum first part: Normal Duodenum second part: Normal Plan: Await pathology. Proceed with colonoscopy OPERATION: .
[2017-02-12 18:27] VITALS: BP 110/82
== END 2017-02-12 18:10 | disposition home or self-care (01) ==
LOC: END 15:24
PROVIDERS: ATTEND Internal Medicine Gastroenterology
PROC: 0DB68ZX Excision of Stomach, Via Natural or Artificial Opening Endoscopic, Diagnostic (ICD-10-PCS; principal; 2017-02-12 15:45)
DX: K31.9 Disease of stomach and duodenum, unspecified (principal); K21.9 Gastro-esophageal reflux disease without esophagitis; R10.13 Epigastric pain; E78.00 Pure hypercholesterolemia, unspecified; I10 Essential (primary) hypertension; E03.9 Hypothyroidism, unspecified; E11.9 Type 2 diabetes mellitus without complications; Z79.84 Long term (current) use of oral hypoglycemic drugs; Z79.899 Other long term (current) drug therapy; Z90.49 Acquired absence of other specified parts of digestive tract
CPT/HCPCS: 43239; 82962; 88342 ×2; 88305 ×2; J2250; J3010; J0171; J1610; J2310; J3490

== ENCOUNTER → 2017-02-13 | Outpatient (CLI) | payer OTHER ==
--- NOTE | 2017-02-13 11:52 | WOMENS IMAGING REPORT ---
EXAM DESCRIPTION: BILAT SCREENING MAMMO W/CAD COMPLETED DATE/TIME: 02/13/2017 11:25 am REASON FOR STUDY: ROUTINE SCREENING; Z12.31 Z12.31 ENCNTR SCREEN MAMMOGRAM FOR MALIGNANT NEOPLASM O F RADHA COMPARISON: 2011 to 2015 TECHNIQUE: Standard craniocaudal and mediolateral oblique views of each breast recorded using Collaaja l acquisition. LIMITATIONS: None. FINDINGS: No masses, calcifications or architectural distortion. No areas of suspicion. Read with the assistance of CAD. .[facility] - R2 Cenova Version 1.3 .[facility] - R2 Cenova Version 1.3 .[facility] - R2 Cenova Version 2.4 .[facility] [place] Cenova Version 2.4 .[facility] - R2 Rotary Dryer Operator Version 9.2 IMPRESSION: NORMAL MAMMOGRAM. BIRADS 1. BREAST DENSITY: b. There are scattered areas of fibroglandular density. BIRAD: 1 NEGATIVE RECOMMENDATION: ROUTINE SCREENING COMMENT: The patient has been notified of the results by letter per SA requirements. Additional no tification policies are in place for contacting patient with suspicious or incomplete findings. Quality ID #[id number]: The [employer] recommends an annual screening mammogram for women aged 40 years or over. This facility utilizes a reminder system to ensure that all patients receive reminder letters, and/or direct phone calls for appointments. This includes reminders for routine scr eening mammograms, diagnostic mammograms, or other Breast Imaging Interventions when appropriate. Th is patient will be placed in the appropriate reminder system. The [employer] (ACR) has developed recommendations for screening MRI of the breast s in certain patient populations, to be used in conjunction with mammography. Breast MRI surveillanc e may be appropriate for women with more than 20% lifetime risk of developing breast cancer as deter mined by genetic testing, significant family history of the disease, or history of mantle radiation f or Hodgkins Disease. ACR Practice Guidelines 2008. TECHNICAL DOCUMENTATION: FINDING NUMBER: (1) ASSESSMENT: (1) JOB ID: [id number] [employer]- All Rights Reserved
== END ==
LOC: WI 10:50
PROVIDERS: ATTEND Family Medicine
DX: Z12.31 Encounter for screening mammogram for malignant neoplasm of breast (principal)
CPT/HCPCS: 77067; G0202

== ENCOUNTER 2017-03-26 10:53 | Emergency (ER) | payer OTHER ==
--- NOTE | 2017-03-26 13:06 | ER Document Report ---
ED General - General Chief Complaint: Ear Pain Stated Complaint: EAR PAIN Time Seen by Provider: 03/26/17 12:05 Mode of Arrival: Ambulatory Information source: Patient Notes: 62-year-old female history of diabetes presents with complaints of earache. Patient denies any fevers or chills denies any nausea vomiting or diarrhea. Patient denies any pain around her ears. Patient notes that he feels muffled has been ongoing for 4 days and has follow-up with primary care physician on . Patient notes she checked her blood sugar was 117 this morning TRAVEL OUTSIDE OF THE [place] IN LAST 30 DAYS: No - HPI Onset: Other - 4 day duration Onset/Duration: Persistent Quality of pain: Achy Severity: Mild Pain Level: 2 Associated symptoms: Earache Exacerbated by: Denies Relieved by: Denies Similar symptoms previously: No Recently seen / treated by doctor: No - Related Data Allergies/Adverse Reactions: naproxen [From Aleve] Allergy (Verified 03/26/17 12:30) diphenhydramine HCl [From Benadryl] Adverse Reaction (Mild, Verified 03/26/17 12 :30) makes me feel funny Past Medical History - Social History Smoking Status: Never Smoker Cigarette use (# per day): No Chew tobacco use (# tins/day): No Smoking Education Provided: No Frequency of alcohol use: None Drug Abuse: None Family History: CAD, DM, Hyperlipidemia, Hypertension, Malignancy, Thyroid Disfunction Patient has suicidal ideation: No Patient has homicidal ideation: No - Past Medical History Cardiac Medical History: Reports: Hx Hypercholesterolemia, Hx Hypertension Denies: Hx Coronary Artery Disease, Hx Heart Attack Pulmonary Medical History: Reports: Hx Asthma, Hx Bronchitis Denies: Hx COPD, Hx Pneumonia, Hx Tuberculosis Neurological Medical History: Denies: Hx Cerebrovascular Accident, Hx Seizures Endocrine Medical History: Reports: Hx Diabetes Mellitus Type 2 Renal/ Medical History: Denies: Hx Peritoneal Dialysis GI Medical History: Reports: Hx Gastroesophageal Reflux Disease Musculoskeltal Medical History: Reports Hx Arthritis, Reports Hx Musculoskeletal Deformity Past Surgical History: Reports: Hx Section, Hx Cholecystectomy, Hx Orthopedic Surgery - Carpal tunnel. Denies: Hx Hysterectomy - Immunizations Immunizations up to date: Yes Hx Diphtheria, Pertussis, Tetanus Vaccination: Yes Hx Pneumococcal Vaccination: 12/02/13 Review of Systems - Review of Systems Notes: REVIEW OF SYSTEMS: CONSTITUTIONAL : Denies fever, chills, or sweats. Denies recent illness. EENT: Admits to earache CARDIOVASCULAR: Denies chest pain. Denies palpitations or racing or irregular heart beat. Denies ankle edema. RESPIRATORY: Denies cough, cold, or chest congestion. Denies shortness of breath, difficulty breathing, or wheezing. GASTROINTESTINAL: Denies abdominal pain or distention. Denies nausea, vomiting , or diarrhea. Denies blood in vomitus, stools, or per rectum. Denies black, tarry stools. Denies constipation. GENITOURINARY: Denies difficulty urinating, painful urination, burning, frequency, blood in urine, or discharge. FEMALE GENITOURINARY: Denies vaginal bleeding, heavy or abnormal periods, irregular periods. Denies vaginal discharge or odor. MUSCULOSKELETAL: Denies back or neck pain or stiffness. Denies joint pain or swelling. SKIN: Denies rash, lesions or sores. HEMATOLOGIC : Denies easy bruising or bleeding. LYMPHATIC: Denies swollen, enlarged glands. NEUROLOGICAL: Denies confusion or altered mental status. Denies passing out or loss of consciousness. Denies dizziness or lightheadedness. Denies headache. Denies weakness or paralysis or loss of use of either side. Denies problems with gait or speech. Denies sensory loss, numbness, or tingling. Denies seizures. PSYCHIATRIC: Denies anxiety or stress. Denies depression, suicidal ideation, or homicidal ideation. ALL OTHER SYSTEMS REVIEWED AND NEGATIVE. PHYSICAL EXAMINATION: GENERAL: Well-appearing, well-nourished and in no acute distress. HEAD: Atraumatic, normocephalic. EYES: Pupils equal round and reactive to light, extraocular movements intact, conjunctiva are normal. ENT: Right ear TM is pustular there is no mastoid tenderness upon palpation there is no erythema NECK: Normal range of motion, supple without lymphadenopathy LUNGS: Breath sounds clear to auscultation bilaterally and equal. No wheezes rales or rhonchi. HEART: Regular rate and rhythm without murmurs ABDOMEN: Soft, nontender, nondistended abdomen. No guarding, no rebound. No masses appreciated. Female : deferred Musculoskeletal: Normal range of motion, no pitting or edema. No cyanosis. NEUROLOGICAL: Cranial nerves grossly intact. Normal speech, normal gait. Normal sensory, motor exams PSYCH: Normal mood, normal affect. SKIN: Warm, Dry, normal turgor, no rashes or lesions noted. Dictation was performed using [employer]o [employer]ante voice recognition software Physical Exam - Vital signs Vitals: Temp Pulse Resp BP Pulse Ox 97.8 F 86 20 144/66 H 98 03/26/17 11:04 03/26/17 11:04 03/26/17 11:04 03/26/17 11:04 03/26/17 11:04 Course - Re-evaluation Re-evalutation: 03/26/17 13:02 Patient has no signs of malignant otitis externa, there is pus in the right ear there is no pus in the left. There is no mastoid tenderness, patient is acting appropriately, I do not believe any further imaging is appropriate at this time , vital signs are stable. She will be treated with antibiotics 03/26/17 15:13 After performing a Medical Screening Examination, I estimate there is LOW risk for malignant otitis media, mastoiditis, MENINGITIS, or ACUTE CORONARY SYNDROME , thus I consider the discharge disposition reasonable. I have reevaluated this patient multiple times and no significant life threatening changes are noted. The patient and I have discussed the diagnosis and risks, and we agree with discharging home to follow-up on an outpatient basis with the understanding that symptoms and presentations can change. We also discussed returning to the Emergency Department immediately if new or worsening symptoms occur. We have discussed the symptoms which are most concerning (e.g., high fevers, confusion) that necessitate immediate return. - Vital Signs Vital signs: Temp Pulse Resp BP Pulse Ox 98.5 F 80 18 132/73 H 95 03/26/17 13:14 03/26/17 13:14 03/26/17 13:14 03/26/17 13:14 03/26/17 13:14 Discharge - Discharge Clinical Impression: Diabetes 1.5, managed as type 1 Otitis media Qualifiers: Otitis media type: unspecified Chronicity: acute Qualified Code(s): H66.90 - Otitis media, unspecified, unspecified ear Condition: Stable Disposition: HOME, SELF-CARE Instructions: Otitis Media ([facility]) Additional Instructions: Please follow-up with Dr. Sykes for your previous appointment Return immediately if symptoms are worsening Prescriptions: Amox Tr/Potassium Clavulanate [Augmentin 875-125 Tablet] 1 tab PO BID 10 Days tablet
[2017-03-26 13:15] VITALS: BP 132/73
== END 2017-03-26 13:14 | disposition home or self-care (01) ==
LOC: ER 10:53
DX: H66.90 Otitis media, unspecified, unspecified ear (principal); E10.9 Type 1 diabetes mellitus without complications; E78.00 Pure hypercholesterolemia, unspecified; I10 Essential (primary) hypertension; Z90.49 Acquired absence of other specified parts of digestive tract
CPT/HCPCS: 99282

== ENCOUNTER → 2017-03-28 | Outpatient (CLI) | payer OTHER | LOC: OD 08:25 | PROVIDERS: ATTEND Family Medicine | DX: E87.6 Hypokalemia (principal) | CPT/HCPCS: 36415; 84132 ==

== ENCOUNTER 2017-05-08 09:44 | Emergency (ER) | payer OTHER ==
[2017-05-08] MEDS ORDERED: NORMAL SALINE 500 ML IV ONE (11:41)
[2017-05-08 11:58] LABS: ANION GAP 19 (5-19); BLOOD UREA NITROGEN 29 mg/dL (7-20); CALCIUM 10.3 mg/dL (8.4-10.2); CARBON DIOXIDE 28 mmol/L (22-30); CHLORIDE 92 mmol/L (98-107); GLUCOSE 149 mg/dL (75-110); POTASSIUM 3.5 mmol/L (3.6-5.0); SODIUM 139.1 mmol/L (137-145)
[2017-05-08] MEDS ORDERED: MAGNESIUM SULFATE/D5W 1 GM/100 ML RTUPB IV ONE (12:16)
[2017-05-08] MEDS ORDERED: POTASSIUM CHLORIDE 10 MEQ TABLET.SA PO ONE (12:16)
[2017-05-08] MEDS ORDERED: POTASSI CL 20 MEQ/50 ML RIDER 20 MEQ/50 ML RTUPB IV ONE (12:16)
--- NOTE | 2017-05-08 14:35 | ER Document Report ---
ED General - General Chief Complaint: Leg Pain Stated Complaint: FOOT AND LEG CRAMPING Time Seen by Provider: 05/08/17 10:53 TRAVEL OUTSIDE OF THE [place] IN LAST 30 DAYS: No - HPI Patient complains to provider of: Bilateral leg cramping Notes: Patient coming in for bilateral leg cramping states ongoing for the last few days. Patient states recently was told to hold her potassium tablets decreased from 2-1. Patient states she has been compliant with her Neurontin and opiate pain medication. Patient denies any swelling denies any recent travel. Resting comfortably upon my evaluation. - Related Data Allergies/Adverse Reactions: naproxen [From Aleve] Allergy (Verified 03/26/17 12:30) diphenhydramine HCl [From Benadryl] Adverse Reaction (Mild, Verified 03/26/17 12 :30) makes me feel funny Past Medical History - Social History Smoking Status: Never Smoker Chew tobacco use (# tins/day): No Frequency of alcohol use: None Drug Abuse: None Family History: CAD, DM, Hyperlipidemia, Hypertension, Malignancy, Thyroid Disfunction Patient has suicidal ideation: No Patient has homicidal ideation: No - Past Medical History Cardiac Medical History: Reports: Hx Hypercholesterolemia, Hx Hypertension Denies: Hx Coronary Artery Disease, Hx Heart Attack Pulmonary Medical History: Reports: Hx Asthma, Hx Bronchitis Denies: Hx COPD, Hx Pneumonia, Hx Tuberculosis Neurological Medical History: Denies: Hx Cerebrovascular Accident, Hx Seizures Endocrine Medical History: Reports: Hx Diabetes Mellitus Type 2 Renal/ Medical History: Denies: Hx Peritoneal Dialysis GI Medical History: Reports: Hx Gastroesophageal Reflux Disease Musculoskeltal Medical History: Reports Hx Arthritis, Reports Hx Musculoskeletal Deformity Past Surgical History: Reports: Hx Section, Hx Cholecystectomy, Hx Orthopedic Surgery - Carpal tunnel. Denies: Hx Hysterectomy - Immunizations Immunizations up to date: Yes Hx Diphtheria, Pertussis, Tetanus Vaccination: Yes Hx Pneumococcal Vaccination: 12/02/13 Review of Systems - Review of Systems Constitutional: No symptoms reported EENT: No symptoms reported Cardiovascular: No symptoms reported Respiratory: No symptoms reported Gastrointestinal: No symptoms reported Genitourinary: No symptoms reported Female Genitourinary: No symptoms reported Musculoskeletal: Other - Leg cramping Skin: No symptoms reported Hematologic/Lymphatic: No symptoms reported Neurological/Psychological: No symptoms reported Physical Exam - Vital signs Vitals: Temp Pulse Resp BP Pulse Ox 98.3 F 105 H 22 H 148/78 H 93 05/08/17 10:12 05/08/17 10:12 05/08/17 10:12 05/08/17 10:12 05/08/17 10:12 Interpretation: Normal - General General appearance: Appears well, Alert - HEENT Head: Normocephalic, Atraumatic Eyes: Normal Pupils: PERRL - Respiratory Respiratory status: No respiratory distress Chest status: Nontender Breath sounds: Normal Chest palpation: Normal - Cardiovascular Rhythm: Regular Heart sounds: Normal auscultation Murmur: No - Abdominal Inspection: Normal Distension: No distension Bowel sounds: Normal Tenderness: Nontender Organomegaly: No organomegaly - Back Back: Normal, Nontender - Extremities General upper extremity: Normal inspection, Nontender, Normal color, Normal ROM , Normal temperature General lower extremity: Normal inspection, Nontender, Normal color, Normal ROM , Normal temperature, Normal weight bearing. No: Kristyn's sign - Neurological Neuro grossly intact: Yes Cognition: Normal Orientation: AAOx4 Valentín Coma Scale Eye Opening: Spontaneous Valentín Coma Scale Verbal: Oriented Valentín Coma Scale Motor: Obeys Commands Valentín Coma Scale Total: 15 Speech: Normal Motor strength normal: LUE, RUE, LLE, RLE Sensory: Normal - Psychological Associated symptoms: Normal affect, Normal mood - Skin Skin Temperature: Warm Skin Moisture: Dry Skin Color: Normal Course - Re-evaluation Re-evalutation: 05/08/17 14:32 Laboratory studies showed low magnesium along with low potassium. I did replace these IV and a dose of oral potassium. Cursed patient to return to her normal potassium dosing 2 tablets a day and follow-up with primary care physician. - Vital Signs Vital signs: Temp Pulse Resp BP Pulse Ox 97.7 F 77 17 112/69 97 05/08/17 14:24 05/08/17 14:24 05/08/17 14:24 05/08/17 14:24 05/08/17 14:24 - Laboratory Result Diagrams: 05/08/17 11:11 Laboratory results interpreted by me: 05/08/17 11:11 Potassium 3.5 L Chloride 92 L BUN 29 H Glucose 149 H Calcium 10.3 H Magnesium 1.5 L Discharge - Discharge Clinical Impression: Bilateral leg cramps, Hypokalemia, Hypomagnesemia Instructions: Hypokalemia ([facility]) Additional Instructions: Laboratory studies show that she your potassium and magnesium were low more likely this is the etiology of the cramps in her legs. Please make sure that you take your potassium as previous prescribed 2 tablets recommend following up with her primary care physician. Referrals: JOVITA UP MD [Primary Care Provider] - Follow up as needed
[2017-05-08 15:24] VITALS: BP 116/78
== END 2017-05-08 15:30 | disposition home or self-care (01) ==
LOC: ER 09:44
DX: E87.6 Hypokalemia (principal); E83.42 Hypomagnesemia; M79.605 Pain in left leg; M79.604 Pain in right leg; E78.00 Pure hypercholesterolemia, unspecified; I10 Essential (primary) hypertension; E11.9 Type 2 diabetes mellitus without complications; Z90.49 Acquired absence of other specified parts of digestive tract
CPT/HCPCS: 99283; 96361; 96365; 96366; 96367; 36415; 83735; 80048; J3475; J3480; J7040

== ENCOUNTER 2017-07-09 13:56 | Emergency (ER) | payer OTHER ==
[2017-07-09] MEDS ORDERED: LIDOCAINE 5% (700 MG) TRANSDERMAL ADH..PATCH TP ONE (15:20)
[2017-07-09 16:32] LABS: APPEARANCE,URINE CLEAR; BILIRUBIN,URINE NEGATIVE (NEGATIVE); COLOR,URINE STRAW; GLUCOSE, URINE NEGATIVE (NEGATIVE); KETONES,URINE NEGATIVE (NEGATIVE); LEUKOCYTE ESTERASE,URINE MODERATE (NEGATIVE); NITRITE,URINE NEGATIVE (NEGATIVE); PROTEIN,URINE NEGATIVE (NEGATIVE); URINE SPECIFIC GRAVITY 1.004; UROBILINOGEN,URINE NEGATIVE mg/dL (<2.0)
[2017-07-09] MEDS ORDERED: NITROFURANTOIN MONOHYD/M-CRYST 100 MG CAPSULE PO ONE (16:39)
[2017-07-09 17:12] VITALS: BP 146/91
--- NOTE | 2017-07-09 17:18 | ER Document Report ---
ED General - General Chief Complaint: Urinary Problem Stated Complaint: HEAD PAIN, ABDOMINAL/BACK PAIN Time Seen by Provider: 07/09/17 15:14 TRAVEL OUTSIDE OF THE [place] IN LAST 30 DAYS: No - HPI Patient complains to provider of: Occipital headache urinary problems Notes: Patient coming in for complaints of dysuria concerned she may have a UTI. Patient also complains of a occipital headache ongoing for the last 3 days. Denies any trauma. Patient states at the base of the skull were most of her pains. Patient states no relief with her chronic prescribing medication. Patient has not tried any Tylenol Motrin or any other medications for her headache. Patient resting currently upon my evaluation ambulate without difficulty. Denies fever chills nausea vomiting diarrhea - Related Data Allergies/Adverse Reactions: naproxen [From Aleve] Allergy (Verified 07/09/17 13:58) diphenhydramine HCl [From Benadryl] Adverse Reaction (Mild, Verified 07/09/17 13 :58) makes me feel funny Past Medical History - Social History Smoking Status: Never Smoker Chew tobacco use (# tins/day): No Frequency of alcohol use: None Drug Abuse: None Family History: CAD, DM, Hyperlipidemia, Hypertension, Malignancy, Thyroid Disfunction Patient has suicidal ideation: No Patient has homicidal ideation: No - Past Medical History Cardiac Medical History: Reports: Hx Hypercholesterolemia, Hx Hypertension Denies: Hx Coronary Artery Disease, Hx Heart Attack Pulmonary Medical History: Reports: Hx Asthma, Hx Bronchitis Denies: Hx COPD, Hx Pneumonia, Hx Tuberculosis Neurological Medical History: Denies: Hx Cerebrovascular Accident, Hx Seizures Endocrine Medical History: Reports: Hx Diabetes Mellitus Type 2 Renal/ Medical History: Denies: Hx Peritoneal Dialysis GI Medical History: Reports: Hx Gastroesophageal Reflux Disease Musculoskeltal Medical History: Reports Hx Arthritis, Reports Hx Musculoskeletal Deformity Past Surgical History: Reports: Hx Section, Hx Cholecystectomy, Hx Orthopedic Surgery - Carpal tunnel. Denies: Hx Hysterectomy - Immunizations Immunizations up to date: Yes Hx Diphtheria, Pertussis, Tetanus Vaccination: Yes Hx Pneumococcal Vaccination: 12/02/13 Review of Systems - Review of Systems Constitutional: Other - Headache dysuria EENT: No symptoms reported Cardiovascular: No symptoms reported Respiratory: No symptoms reported Gastrointestinal: No symptoms reported Genitourinary: No symptoms reported Female Genitourinary: No symptoms reported Musculoskeletal: No symptoms reported Skin: No symptoms reported Hematologic/Lymphatic: No symptoms reported Neurological/Psychological: No symptoms reported Physical Exam - Vital signs Vitals: Temp Pulse Resp BP Pulse Ox 97.9 F 94 20 169/81 H 97 07/09/17 14:02 07/09/17 14:02 07/09/17 14:02 07/09/17 14:02 07/09/17 14:02 Interpretation: Normal - General General appearance: Appears well, Alert - HEENT Head: Normocephalic, Atraumatic, Other - Reproduction the patient's symptoms to palpation of the base of the skull at the occiput range of motion of the head neck are complete Eyes: Normal Pupils: PERRL - Respiratory Respiratory status: No respiratory distress Chest status: Nontender Breath sounds: Normal Chest palpation: Normal - Cardiovascular Rhythm: Regular Heart sounds: Normal auscultation Murmur: No - Abdominal Inspection: Normal Distension: No distension Bowel sounds: Normal Tenderness: Nontender Organomegaly: No organomegaly - Back Back: Normal, Nontender - Extremities General upper extremity: Normal inspection, Nontender, Normal color, Normal ROM , Normal temperature General lower extremity: Normal inspection, Nontender, Normal color, Normal ROM , Normal temperature, Normal weight bearing. No: Kristyn's sign - Neurological Neuro grossly intact: Yes Cognition: Normal Orientation: AAOx4 [place] Coma Scale Eye Opening: Spontaneous [place] Coma Scale Verbal: Oriented [place] Coma Scale Motor: Obeys Commands [place] Coma Scale Total: 15 Speech: Normal Motor strength normal: LUE, RUE, LLE, RLE Sensory: Normal - Psychological Associated symptoms: Normal affect, Normal mood - Skin Skin Temperature: Warm Skin Moisture: Dry Skin Color: Normal Course - Re-evaluation Re-evalutation: 07/09/17 21:09 Occipital versus tension headache. Patient with minimal relief with lidocaine patch. Recommend patient continue to try Tylenol Motrin for pain control. Patient does have some bacteria in her urine we will treat the patient for UTI will give a dose of Macrobid here will send the patient home with Macrobid urine culture sent. - Vital Signs Vital signs: Temp Pulse Resp BP Pulse Ox 98.1 F 87 20 146/91 H 97 07/09/17 17:11 07/09/17 17:11 07/09/17 17:11 07/09/17 17:11 07/09/17 17:11 - Laboratory Laboratory results interpreted by me: 07/09/17 15:30 Ur Leukocyte Esterase MODERATE H Discharge - Discharge Clinical Impression: Tension headache UTI (urinary tract infection) Qualifiers: Urinary tract infection type: site unspecified Hematuria presence: without hematuria Qualified Code(s): N39.0 - Urinary tract infection, site not specified Condition: Good Disposition: HOME, SELF-CARE Instructions: Nitrofurantoin ([facility]), Tension Headache ([facility]), Urinary Tract Infection ([facility]) Additional Instructions: Follow-up with your primary care physician. Your urinalysis does show some bacteria beginning of urinary tract infection we will treat this with Macrobid. Take Tylenol Motrin for your headache would recommend asking her pharmacist about [id number] lidocaine patches for your tension headache as well. Return to ER symptoms worsen. Prescriptions: Nitrofurantoin/Nitrofuran Mac [Macrobid 100 mg Capsule] 1 tab PO BID #10 capsule Referrals: JOVITA UP MD [Primary Care Provider] - Follow up in 3-5 days
== END 2017-07-09 17:27 | disposition home or self-care (01) ==
LOC: ER 13:56
DX: G44.209 Tension-type headache, unspecified, not intractable (principal); N39.0 Urinary tract infection, site not specified; R10.9 Unspecified abdominal pain; M54.9 Dorsalgia, unspecified; R30.0 Dysuria; I10 Essential (primary) hypertension; J45.909 Unspecified asthma, uncomplicated; E11.9 Type 2 diabetes mellitus without complications
CPT/HCPCS: 99283; 81001; J8499

== ENCOUNTER 2017-07-27 14:12 | Emergency (ER) | payer OTHER ==
[2017-07-27 14:20] VITALS: BP 132/83
--- NOTE | 2017-07-27 14:55 | ER Document Report ---
ED ENT - General Chief Complaint: Congestion Stated Complaint: SORE THROAT Time Seen by Provider: 07/27/17 14:42 Mode of Arrival: Ambulatory Information source: Patient Notes: 62-year-old female presented ED for cough cold congestion sore throat with white something on her throat. She states her symptoms started 2 or 3 days ago. She is afebrile. She is alert oriented pupils equal and react to light able to speak in full sentences no respirations regular unlabored with a nonproductive cough, she is able to ambulate with a even steady gait. Patient is in no acute distress. TRAVEL OUTSIDE OF THE [place] IN LAST 30 DAYS: No - HPI Patient complains to provider of: Nose problem, Throat problem Onset: Yesterday Onset/Duration: Gradual Quality of pain: Achy, Other - Chart Severity: Moderate Pain Level: 3 Context: Recent Illness Location of pain: Nose, Sinus, Throat Associated symptoms: Congestion, Cough, Runny nose, Sinus pain, Sinus drainage, Sore throat Similar symptoms previously: Yes Recently seen / treated by doctor: No - Related Data Allergies/Adverse Reactions: naproxen [From Aleve] Allergy (Verified 07/09/17 13:58) diphenhydramine HCl [From Benadryl] Adverse Reaction (Mild, Verified 07/09/17 13 :58) makes me feel funny Past Medical History - General Information source: Patient - Social History Smoking Status: Never Smoker Cigarette use (# per day): No Chew tobacco use (# tins/day): No Smoking Education Provided: No Frequency of alcohol use: None Drug Abuse: None Family History: CAD, DM, Hyperlipidemia, Hypertension, Malignancy, Thyroid Disfunction Patient has suicidal ideation: No Patient has homicidal ideation: No - Past Medical History Cardiac Medical History: Reports: Hx Hypercholesterolemia, Hx Hypertension Pulmonary Medical History: Reports: Hx Bronchitis EENT Medical History: Reports: None Neurological Medical History: Reports: None Endocrine Medical History: Reports: Hx Diabetes Mellitus Type 2 Renal/ Medical History: Reports: None Malignancy Medical History: Reports: None GI Medical History: Reports: Hx Gastroesophageal Reflux Disease Musculoskeltal Medical History: Reports Hx Arthritis, Reports Hx Musculoskeletal Deformity Skin Medical History: Reports None Psychiatric Medical History: Reports: None Traumatic Medical History: Reports: None Infectious Medical History: Reports: None Past Surgical History: Reports: Hx Section, Hx Cholecystectomy, Hx Orthopedic Surgery - Carpal tunnel - Immunizations Immunizations up to date: Yes Hx Diphtheria, Pertussis, Tetanus Vaccination: Yes Hx Pneumococcal Vaccination: 12/02/13 Review of Systems - Review of Systems Constitutional: Recent illness. denies: Chills, Fever EENT: Nose discharge, Sinus discharge, Throat pain Cardiovascular: No symptoms reported Respiratory: Cough Gastrointestinal: No symptoms reported Genitourinary: No symptoms reported Female Genitourinary: No symptoms reported Musculoskeletal: No symptoms reported Skin: No symptoms reported Hematologic/Lymphatic: No symptoms reported Neurological/Psychological: No symptoms reported -: Yes All other systems reviewed and negative Physical Exam - Vital signs Vitals: Temp Pulse Resp BP Pulse Ox 98.3 F 84 20 132/83 H 94 07/27/17 14:19 07/27/17 14:19 07/27/17 14:19 07/27/17 14:19 07/27/17 14:19 Interpretation: Normal - General General appearance: Appears well, Alert - HEENT Head: Normocephalic, Atraumatic Eyes: Normal Pupils: PERRL Ears: Normal External canal: Normal Tympanic membrane: Normal Sinus: Normal Nasal: Purulent discharge, Swelling Pharynx: Erythema. No: Exudate, Tonsillar hypertrophy Neck: Normal - Respiratory Respiratory status: No respiratory distress Chest status: Nontender Breath sounds: Nonproductive cough. No: Productive cough, Rales, Rhonchi, Stridor, Wheezing Chest palpation: Normal - Cardiovascular Rhythm: Regular Heart sounds: Normal auscultation Murmur: No - Abdominal Inspection: Normal Distension: No distension Bowel sounds: Normal Tenderness: Nontender Organomegaly: No organomegaly - Back Back: Normal, Nontender - Extremities General upper extremity: Normal inspection, Nontender, Normal color, Normal ROM , Normal temperature General lower extremity: Normal inspection, Nontender, Normal color, Normal ROM , Normal temperature, Normal weight bearing. No: Kristyn's sign - Neurological Neuro grossly intact: Yes Cognition: Normal Orientation: AAOx4 [place] Coma Scale Eye Opening: Spontaneous [place] Coma Scale Verbal: Oriented [place] Coma Scale Motor: Obeys Commands [place] Coma Scale Total: 15 Speech: Normal Motor strength normal: LUE, RUE, LLE, RLE Sensory: Normal - Psychological Associated symptoms: Normal affect, Normal mood - Skin Skin Temperature: Warm Skin Moisture: Dry Skin Color: Normal Course - Re-evaluation Re-evalutation: 07/27/17 18:32 She was seen earlier for cough cold congestion sore throat. She states she had white patches in her throat. Her strep test was negative. After performing a Medical Screening Examination, I estimate there is LOW risk for ACUTE CORONARY SYNDROME, RESPIRATORY FAILURE, SEPSIS OR MENINGITIS, thus I consider the discharge disposition reasonable. I have reevaluated this patient multiple times and no significant life threatening changes are noted. The patient and I have discussed the diagnosis and risks, and we agree with discharging home with close follow-up. We also discussed returning to the Emergency Department immediately if new or worsening symptoms occur. We have discussed the symptoms which are most concerning (e.g., changing or worsening pain, trouble swallowing or breathing, neck stiffness, fever) that necessitate immediate return. - Vital Signs Vital signs: Temp Pulse Resp BP Pulse Ox 98.3 F 84 20 132/83 H 94 07/27/17 14:19 07/27/17 14:19 07/27/17 14:19 07/27/17 14:19 07/27/17 14:19 Discharge - Discharge Clinical Impression: Viral sore throat URI (upper respiratory infection) Qualifiers: URI type: unspecified URI Qualified Code(s): J06.9 - Acute upper respiratory infection, unspecified Condition: Stable Disposition: HOME, SELF-CARE Additional Instructions: SORE THROAT: Sore throats may be caused by viruses, bacteria, or fungi. Most are due to a virus, and must get better on their own. Bacterial sore throats, particularly those due to "strep," need treatment with antibiotics. If an antibiotic is prescribed, be sure to take the medication for a full 10 days. Failure to take the antibiotic can result in complications such as rheumatic fever. Sometimes, an injection of antibiotics is given instead of pills or liquid. This single "shot" is equal in effectiveness to the oral medication. To relieve symptoms, take acetaminophen for pain. Sip clear liquids frequently, or eat popsicles or ice chips. Anesthetic sprays or lozenges may help. Make sure the air in the room is not too dry. Avoid using decongestants or antihistamines. Call the doctor if there is no improvement in two days, or if you have difficulty breathing, increasing throat pain, high fever, rash, or frequent vomiting. UPPER RESPIRATORY ILLNESS: You have a viral infection of the respiratory passages -- a "cold." This common infection causes nasal congestion, drainage, and often sore throat and cough. It is highly contagious. The disease usually lasts about 10 to 14 days. There is no "cure" for the viral infection -- it must run its course. If there is a complication, such as bacterial infection in the nose, sinuses, middle ear, or bronchial tubes, antibiotics may be required. The antibiotics won't affect the virus. Drink plenty of fluids. A humidifier may help. An expectorant medication or decongestant may make you more comfortable. Use acetaminophen or ibuprofen for fever or aches. See the doctor if fever persists over two days, if there is any significant worsening of your symptoms, or if you simply fail to improve as expected. COUGH-SUPPRESSANT & EXPECTORANT MEDICATION: You are to use a cough medication as needed for relief of symptoms. This medicine is a combination of an expectorant (to make the mucous thinner and more easily "coughed up") and a cough suppressant (to reduce the frequency of coughing). The cough-suppressant medicine is related to narcotics. You may experience mild nausea and sleepiness. Some patients who are very sensitive to narcotics may have stomach pain from this medicine. Taking the medicine with food reduces these side effects. Do not drive or work with machinery until you know how this medicine affects you. The expectorant should have no side effects. Iodine-containing expectorants (such as organidin) should not be taken by persons with active thyroid disease unless approved by your doctor. Call the doctor if you develop shortness of breath, hives, rash, itching, lightheadedness, or severe nausea and vomiting. USE OF ACETAMINOPHEN (Tylenol): Acetaminophen may be taken for pain relief or fever control. It's much safer than aspirin, offering a wider range of "safe" dosages. It is safe during . Some brand names are Tylenol, Panadol, Datril, Anacin 3, Tempra, and Liquiprin. Acetaminophen can be repeated every four hours. The following are maximum recommended dosages: >89 pounds or adults 650 mg to 900 mg Acetaminophen can be repeated every four hours. Maximum dose not to exceed 4000 mg a day. FOLLOW-UP CARE: If you have been referred to a physician for follow-up care, call the physician s office for an appointment as you were instructed or within the next two days. If you experience worsening or a significant change in your symptoms, notify the physician immediately or return to the Emergency Department at any time for re-evaluation. Forms: Elevated Blood Pressure Referrals: JOVITA UP MD [Primary Care Provider] - Follow up as needed
== END 2017-07-27 15:22 | disposition home or self-care (01) ==
LOC: ER 14:12
DX: J02.8 Acute pharyngitis due to other specified organisms (principal); B97.89 Other viral agents as the cause of diseases classified elsewhere; R05 Cough; J34.89 Other specified disorders of nose and nasal sinuses; I10 Essential (primary) hypertension; E11.9 Type 2 diabetes mellitus without complications; Z88.8 Allergy status to other drugs, medicaments and biological substances
CPT/HCPCS: 87070; 87880; 99283

== ENCOUNTER 2017-08-30 16:52 | Emergency (ER) | payer OTHER ==
[2017-08-30] MEDS ORDERED: BENZONATATE 100 MG CAPSULE PO ONE (18:28)
[2017-08-30] MEDS ORDERED: KETOROLAC TROMETHAMINE 60 MG/2 ML SDV IM ONE (18:28)
--- NOTE | 2017-08-30 18:49 | RADIOLOGY REPORT (SQ) ---
EXAM DESCRIPTION: KNEE LEFT 3 VIEWS COMPLETED DATE/TIME: 08/30/2017 6:42 pm REASON FOR STUDY: left knee pain COMPARISON: None. NUMBER OF VIEWS: Three views. TECHNIQUE: AP, lateral, and sunrise patella radiographic images acquired of the left knee. LIMITATIONS: None. FINDINGS: MINERALIZATION: Normal. BONES: No acute fracture or dislocation. No worrisome bone lesions. JOINT: No effusion. SOFT TISSUES: No soft tissue swelling. No radio-opaque foreign body. OTHER: No other significant finding. IMPRESSION: NEGATIVE STUDY OF THE LEFT KNEE. NO RADIOGRAPHIC EVIDENCE OF ACUTE INJURY. TECHNICAL DOCUMENTATION: JOB ID: [id number] [employer]- All Rights Reserved Reading location - IP/workstation name: [email or web address]
--- NOTE | 2017-08-30 18:50 | RADIOLOGY REPORT (SQ) ---
EXAM DESCRIPTION: CHEST SINGLE VIEW COMPLETED DATE/TIME: 08/30/2017 6:42 pm REASON FOR STUDY: cough COMPARISON: 12/13/2016 EXAM PARAMETERS: NUMBER OF VIEWS: One view. TECHNIQUE: Single frontal radiographic view of the chest acquired. RADIATION DOSE: NA LIMITATIONS: None. FINDINGS: LUNGS AND PLEURA: No opacities, masses or pneumothorax. No pleural effusion. MEDIASTINUM AND HILAR STRUCTURES: No masses. Contour normal. HEART AND VASCULAR STRUCTURES: Heart normal in size. Normal vasculature. BONES: No acute findings. HARDWARE: None in the chest. OTHER: No other significant finding. IMPRESSION: NO ACUTE RADIOGRAPHIC FINDING IN THE CHEST. TECHNICAL DOCUMENTATION: JOB ID: [id number] [employer]- All Rights Reserved Reading location - IP/workstation name: [email or web address]
--- NOTE | 2017-08-30 19:00 | ER Document Report ---
ED General - General Chief Complaint: Cough Stated Complaint: KNEE PAIN, COUGH Time Seen by Provider: 08/30/17 18:27 Notes: Patient is a 62-year-old female who presents with complaints of cough for the past 2 days and left knee pain for the past 1 week. The patient reports that the knee pain as a throbbing, aching, constant pain worsened by walking. She has tried ibuprofen and her home narcotic pain medication without significant improvement. She reports a history of similar pain in the past but has not been this intense. No new injury. She has not seen her general doctor regarding this concern. She reports the cough is a secondary complaint that she would mention while she was here in the emergency department. She has been taking Tessalon Perles without any significant impact on the cough. She denies any sputum production, fever, shortness of breath or constitutional symptoms. TRAVEL OUTSIDE OF THE [place] IN LAST 30 DAYS: No - Related Data Allergies/Adverse Reactions: naproxen [From Aleve] Allergy (Verified 08/30/17 16:52) diphenhydramine HCl [From Benadryl] Adverse Reaction (Mild, Verified 08/30/17 16 :52) makes me feel funny Past Medical History - General Information source: Patient - Social History Smoking Status: Never Smoker Chew tobacco use (# tins/day): No Frequency of alcohol use: None Drug Abuse: None Lives with: Family Family History: CAD, DM, Hyperlipidemia, Hypertension, Malignancy, Thyroid Disfunction Patient has suicidal ideation: No Patient has homicidal ideation: No - Past Medical History Cardiac Medical History: Reports: Hx Hypercholesterolemia, Hx Hypertension Denies: Hx Heart Attack Pulmonary Medical History: Reports: Hx Asthma, Hx Bronchitis Denies: Hx COPD, Hx Pneumonia, Hx Tuberculosis Neurological Medical History: Denies: Hx Seizures Endocrine Medical History: Reports: Hx Diabetes Mellitus Type 2 Renal/ Medical History: Denies: Hx Peritoneal Dialysis GI Medical History: Reports: Hx Gastroesophageal Reflux Disease Musculoskeltal Medical History: Reports Hx Arthritis, Reports Hx Musculoskeletal Deformity Past Surgical History: Reports: Hx Section, Hx Cholecystectomy, Hx Orthopedic Surgery - Carpal tunnel. Denies: Hx Hysterectomy - Immunizations Immunizations up to date: Yes Hx Diphtheria, Pertussis, Tetanus Vaccination: Yes Hx Pneumococcal Vaccination: 12/02/13 Review of Systems - Review of Systems Notes: Constitutional: Negative for fever. HENT: Negative for sore throat. Eyes: Negative for visual changes. Cardiovascular: Negative for chest pain. Respiratory: Positive for cough Gastrointestinal: Negative for abdominal pain, vomiting or diarrhea. Genitourinary: Negative for dysuria. Musculoskeletal: Positive for left knee pain Skin: Negative for rash. Neurological: Negative for headaches, weakness or numbness. 10 point ROS negative except as marked above and in HPI. Physical Exam - Vital signs Vitals: Temp Pulse Resp BP Pulse Ox 99.1 F 93 18 144/84 H 96 08/30/17 17:04 08/30/17 17:04 08/30/17 17:04 08/30/17 17:04 08/30/17 17:04 Interpretation: Normal Notes: PHYSICAL EXAMINATION: GENERAL: Well-appearing, well-nourished and in no acute distress. HEAD: Atraumatic, normocephalic. EYES: Pupils equal round and reactive to light, extraocular movements intact, sclera anicteric, conjunctiva are normal. ENT: nares patent, oropharynx clear without exudates. Moist mucous membranes. NECK: Normal range of motion, supple without lymphadenopathy LUNGS: Breath sounds clear to auscultation bilaterally and equal. No wheezes rales or rhonchi. HEART: Regular rate and rhythm without murmurs ABDOMEN: Soft, nontender, normoactive bowel sounds. No guarding, no rebound. No masses appreciated. EXTREMITIES: No limited range of motion of the left knee, no visible swelling, induration or joint effusion to the left knee. Extremity exam is otherwise unremarkable. NEUROLOGICAL: No focal neurological deficits. Moves all extremities spontaneously and on command. PSYCH: Normal mood, normal affect. SKIN: Warm, Dry, normal turgor, no rashes or lesions noted. Course - Re-evaluation Re-evalutation: 08/30/17 18:58 Patient presents with several days of a nonproductive cough but denies any additional associated respiratory symptoms such as sore shortness of breath, exertional dyspnea, or sputum production. Chest x-ray does not show any evidence of a pneumothorax or acute infiltrate suggesting pneumonia. Patient second complaint is that she has had left knee pain for the past several days. No evidence of a septic joint, gout flare, dislocation, or fracture on exam and imaging. Vitals wnl. At this time, I do not see an indication for labs or further imaging. At this time will discharge with return precautions and follow -up recommendations. Verbal discharge instructions given a the bedside and opportunity for questions given. Medication warnings reviewed. Patient is in agreement with this plan and has verbalized understanding of return precautions and the need for primary care follow-up in the next 24-72 hours. - Vital Signs Vital signs: Temp Pulse Resp BP Pulse Ox 98.1 F 81 20 137/83 H 94 08/30/17 19:07 08/30/17 19:07 08/30/17 19:07 08/30/17 19:07 08/30/17 19:07 - Diagnostic Test Radiology reviewed: Image reviewed, Reports reviewed Radiology results interpreted by me: 08/30/17 18:58 Chest x-ray: No acute infiltrate or pneumothorax Left knee: No acute fractures or dislocations Discharge - Discharge Clinical Impression: Cough Left knee pain Qualifiers: Chronicity: acute Qualified Code(s): M25.562 - Pain in left knee Condition: Good Disposition: HOME, SELF-CARE Additional Instructions: Your x-ray does not show any acute fracture today. You likely have osteoarthritis that has become irritated over the past several days. Use the Voltaren gel that has been prescribed as needed for pain to your knee. Continue to apply ice to the area is much your able. Please follow-up with your primary care physician if you do not have improving your symptoms in the next 1-2 weeks. Please return immediately if you develop weakness, numbness, spreading redness from the area, or any other symptoms that are concerning to you. Your x-rays are normal today. Prescriptions: Diclofenac Sodium [Voltaren] 4 gm TP TID PRN #[id number] gel..gram. PRN Reason: Referrals: JOVITA UP MD [Primary Care Provider] - Follow up as needed
[2017-08-30 19:08] VITALS: BP 137/83
== END 2017-08-30 19:08 | disposition home or self-care (01) ==
LOC: ER 16:52
DX: M25.562 Pain in left knee (principal); R05 Cough; E78.00 Pure hypercholesterolemia, unspecified; I10 Essential (primary) hypertension; E11.9 Type 2 diabetes mellitus without complications; Z90.49 Acquired absence of other specified parts of digestive tract
CPT/HCPCS: 99283; 96372; 71045; 73562; J1885

== ENCOUNTER → 2017-09-10 | Outpatient (CLI) | payer OTHER | LOC: OD 12:32 | PROVIDERS: ATTEND Family Medicine | DX: E11.9 Type 2 diabetes mellitus without complications (principal); Z79.899 Other long term (current) drug therapy | CPT/HCPCS: 36415; 83036 ==

== ENCOUNTER 2017-10-19 19:41 | Emergency (ER) | payer OTHER ==
[2017-10-19] MEDS ORDERED: ONDANSETRON 4 MG TAB.RAPDIS PO ONE (20:01)
[2017-10-19] MEDS ORDERED: NORMAL SALINE 500 ML IV ONE (20:01)
--- NOTE | 2017-10-19 20:03 | ER Document Report ---
ED Medical Screen (RME) - General Chief Complaint: Fever Stated Complaint: FEVER Time Seen by Provider: 10/19/17 20:00 Mode of Arrival: Ambulatory Information source: Patient Notes: This is a 62-year-old female with a history of hypertension, diabetes, dyslipidemia and GERD who presents to the emergency room with fever, cough, headache, dizziness and nausea for the past 2 days. Patient states that she checked her O2 sat with her 's oximeter and it was 95%. Patient reports a nonproductive cough without any significant shortness of breath. TRAVEL OUTSIDE OF THE [place] IN LAST 30 DAYS: No - Related Data Allergies/Adverse Reactions: naproxen [From Aleve] Allergy (Verified 08/30/17 16:52) diphenhydramine HCl [From Benadryl] Adverse Reaction (Mild, Verified 08/30/17 16 :52) makes me feel funny Past Medical History - Social History Chew tobacco use (# tins/day): No Frequency of alcohol use: None Drug Abuse: None Family history: Reviewed & Not Pertinent - Past Medical History Cardiac Medical History: Reports: Hx Hypercholesterolemia, Hx Hypertension Denies: Hx Heart Attack Pulmonary Medical History: Reports: Hx Asthma, Hx Bronchitis Denies: Hx COPD, Hx Pneumonia, Hx Tuberculosis Neurological Medical History: Denies: Hx Seizures Endocrine Medical History: Reports: Hx Diabetes Mellitus Type 2 Renal/ Medical History: Denies: Hx Peritoneal Dialysis GI Medical History: Reports: Hx Gastroesophageal Reflux Disease Musculoskeltal Medical History: Reports Hx Arthritis, Reports Hx Musculoskeletal Deformity Past Surgical History: Reports: Hx Section, Hx Cholecystectomy, Hx Orthopedic Surgery - Carpal tunnel. Denies: Hx Hysterectomy - Immunizations Immunizations up to date: Yes Hx Diphtheria, Pertussis, Tetanus Vaccination: Yes Physical Exam - Vital signs Vitals: Temp Pulse Resp BP Pulse Ox 97.8 F 97 18 120/91 H 95 10/19/17 19:58 10/19/17 19:58 10/19/17 19:58 10/19/17 19:58 10/19/17 19:58 Course - Vital Signs Vital signs: Temp Pulse Resp BP Pulse Ox 97.8 F 97 18 120/91 H 95 10/19/17 19:58 10/19/17 19:58 10/19/17 19:58 10/19/17 19:58 10/19/17 19:58 Doctor's Discharge - Discharge Referrals: JOVITA UP MD [Primary Care Provider] - Follow up as needed
[2017-10-19] MEDS ORDERED: ACETAMINOPHEN 325 MG TABLET PO ONE (20:19)
--- NOTE | 2017-10-19 20:34 | ER Document Report ---
ED General - General Chief Complaint: Fever Stated Complaint: FEVER Time Seen by Provider: 10/19/17 20:00 Mode of Arrival: Ambulatory Notes: Patient is a 62 year old female with a past medical history of hypertension, hyperlipidemia, asthma, who presents with complaints of 2 days of cough, fever, body aches, and intermittent headache. She reports that she has had a fever at home up to 103F. She has been taking ibuprofen with some improvement of her body aches and fever but reports that she continues to have some degree of shortness of breath and cough. She states this feels similar to when she has had asthma attacks in the past as well as pneumonia. No known sick contacts. She has not seen her general doctor regarding today's concerns. She has not noted that anything worsens her symptoms. She denies any focal weakness, numbness, confusion, or neck pain. No neck stiffness. No abdominal pain, vomiting or diarrhea. TRAVEL OUTSIDE OF THE [place] IN LAST 30 DAYS: No - Related Data Allergies/Adverse Reactions: naproxen [From Aleve] Allergy (Verified 08/30/17 16:52) diphenhydramine HCl [From Benadryl] Adverse Reaction (Mild, Verified 08/30/17 16 :52) makes me feel funny Past Medical History - General Information source: Patient - Social History Smoking Status: Never Smoker Chew tobacco use (# tins/day): No Frequency of alcohol use: None Drug Abuse: None Lives with: Spouse/Significant other Family History: CAD, DM, Hyperlipidemia, Hypertension, Malignancy, Thyroid Disfunction Patient has suicidal ideation: No Patient has homicidal ideation: No - Past Medical History Cardiac Medical History: Reports: Hx Hypercholesterolemia, Hx Hypertension Denies: Hx Heart Attack Pulmonary Medical History: Reports: Hx Asthma, Hx Bronchitis Denies: Hx COPD, Hx Pneumonia, Hx Tuberculosis Neurological Medical History: Denies: Hx Seizures Endocrine Medical History: Reports: Hx Diabetes Mellitus Type 2 Renal/ Medical History: Denies: Hx Peritoneal Dialysis GI Medical History: Reports: Hx Gastroesophageal Reflux Disease Musculoskeletal Medical History: Reports Hx Arthritis, Reports Hx Musculoskeletal Deformity Past Surgical History: Reports: Hx Section, Hx Cholecystectomy, Hx Orthopedic Surgery - Carpal tunnel. Denies: Hx Hysterectomy - Immunizations Immunizations up to date: Yes Hx Diphtheria, Pertussis, Tetanus Vaccination: Yes Hx Pneumococcal Vaccination: 12/02/13 Review of Systems - Review of Systems Notes: Constitutional: Positive for fever. HENT: Negative for sore throat. Eyes: Negative for visual changes. Cardiovascular: Negative for chest pain. Respiratory: Positive for shortness of breath and cough Gastrointestinal: Negative for abdominal pain, vomiting or diarrhea. Genitourinary: Negative for dysuria. Musculoskeletal: Negative for back pain. Skin: Negative for rash. Neurological: Positive for headaches 10 point ROS negative except as marked above and in HPI. Physical Exam - Vital signs Vitals: Temp Pulse Resp BP Pulse Ox 97.8 F 97 18 120/91 H 95 10/19/17 19:58 10/19/17 19:58 10/19/17 19:58 10/19/17 19:58 10/19/17 19:58 Interpretation: Normal Notes: PHYSICAL EXAMINATION: GENERAL: Well-appearing, well-nourished and in no acute distress. HEAD: Atraumatic, normocephalic. EYES: Pupils equal round and reactive to light, extraocular movements intact, sclera anicteric, conjunctiva are normal. ENT: nares patent, oropharynx clear without exudates. Moderately dry mucous membranes. NECK: Normal range of motion, supple without lymphadenopathy LUNGS: Slightly diminished at the right base. No tachypnea or distress. No wheezing or rales. HEART: Regular rate and rhythm without murmurs ABDOMEN: Soft, nontender, normoactive bowel sounds. No guarding, no rebound. No masses appreciated. EXTREMITIES: Normal range of motion, no pitting or edema. No cyanosis. NEUROLOGICAL: No focal neurological deficits. Moves all extremities spontaneously and on command. PSYCH: Normal mood, normal affect. SKIN: Warm, Dry, normal turgor, no rashes or lesions noted. Course - Re-evaluation Re-evalutation: 10/19/17 20:33 Patient presents with complaints of a fever to 102F at home with associated cough without sputum production as well as generalized fatigue, nausea and headache for the past 2 days. On examination the patient is well in appearance , vitals in normal limits without any evidence of fever, tachycardia or dyspnea. She has no focal neurologic deficits on examination. No focal abdominal tenderness on examination. Lung sounds clear bilaterally. Soft systolic ejection murmur noted. Considerations include possible bronchitis, acute pneumonia, very low clinical suspicion for an acute meningitis encephalitis given the absence of meningismus, intermittent nature of the headache, absence of photophobia or phonophobia and reassuring vital signs. Will obtain chest x-ray, labs and reassess the patient. 10/19/17 22:14 Chest x-ray is not showing overt infiltrate although patient's oxygen saturation consistently hovering between 93 and 94% as well as her cough with associated sputum production, fever, leukocytosis are all consistent with a diagnosis of pneumonia. The patient will therefore be started on doxycycline twice daily for the next 7 days. Her lactate was noted to be minimally elevated at 2.8 and I do not believe that this in of itself warrants hospitalization at the patient's current heart rate is 78 her blood pressure is 121 on 63, she is not tachypneic denies any ongoing shortness of breath. Her curb 65 score is 0 making her low risk for adverse outcome as an outpatient. She is agreeable to discharge home. At this time will discharge with return precautions and follow-up recommendations. Verbal discharge instructions given a the bedside and opportunity for questions given. Medication warnings reviewed. Patient is in agreement with this plan and has verbalized understanding of return precautions and the need for primary care follow-up in the next 24-72 hours. - Vital Signs Vital signs: Temp Pulse Resp BP Pulse Ox 97.8 F 97 20 125/61 93 10/19/17 19:58 10/19/17 19:58 10/19/17 22:38 10/19/17 22:38 10/19/17 22:38 - Laboratory Result Diagrams: 10/19/17 20:40 10/19/17 20:40 Laboratory results interpreted by me: 10/19/17 10/19/17 10/19/17 20:40 20:40 20:40 WBC 16.0 H Absolute Neutrophils 12.2 H Est GFR (Non-Af Amer) 58 L Glucose 179 H Lactic Acid Ur Leukocyte Esterase LARGE H 10/19/17 20:40 WBC Absolute Neutrophils Est GFR (Non-Af Amer) Glucose Lactic Acid 2.7 H Ur Leukocyte Esterase - Diagnostic Test Radiology reviewed: Image reviewed, Reports reviewed Radiology results interpreted by me: 10/19/17 22:15 Chest x-ray: No definitive infiltrate. No pneumothorax. Discharge - Discharge Clinical Impression: Body aches Pneumonia Qualifiers: Pneumonia type: due to unspecified organism Laterality: unspecified laterality Lung location: unspecified part of lung Qualified Code(s): J18.9 - Pneumonia, unspecified organism Fever Qualifiers: Fever type: unspecified Qualified Code(s): R50.9 - Fever, unspecified Condition: Good Disposition: HOME, SELF-CARE Additional Instructions: You have been diagnosed with a pneumonia. It is very important that you take all of your antibiotics until they are gone even if you are feeling better. Please return to the emergency department immediately if you began having worsening shortness of breath, become confused, have worsening pain, pass out, have persistent vomiting that prevents you from being able to drink fluids for more than 12 hours, or have any other symptoms that are worrisome to you. Please follow-up with your primary care doctor in the next 1-2 days. Prescriptions: Doxycycline Hyclate 100 mg PO BID #14 capsule Referrals: JOVITA UP MD [Primary Care Provider] - 10/21/17
[2017-10-19 21:02] LABS: ABSOLUTE BASOPHILS # (AUTO) 0.1 10^3/uL (0.0-0.2); ABSOLUTE EOSINOPHILS # (AUTO) 0.1 10^3/uL (0.0-0.6); ABSOLUTE LYMPHOCYTES (AUTO) 2.9 10^3/uL (0.5-4.7); ABSOLUTE MONOCYTES (AUTO) 0.8 10^3/uL (0.1-1.4); ABSOLUTE NEUT (AUTO) 12.2 10^3/uL (1.7-8.2); BASOPHILS % (AUTO) 0.3 % (0-2); EOSINOPHILS % (AUTO) 0.8 % (0-6); HEMATOCRIT 36.5 % (36.0-47.0); HEMOGLOBIN 12.2 g/dL (12.0-15.5); LYMPHOCYTES % (AUTO) 17.9 % (13-45); MEAN CORPUSCULAR HEMOGLOBIN 29.6 pg (27.0-33.4); MEAN CORPUSCULAR HGB CONC 33.4 g/dL (32.0-36.0); MEAN CORPUSCULAR VOLUME 89 fl (80-97); MONOCYTES % (AUTO) 4.9 % (3-13); PLATELET COUNT 239 10^3/uL (150-450); RED BLOOD COUNT 4.11 10^6/uL (3.72-5.28); SEGMENTED NEUTROPHILS % (AUTO) 76.1 % (42-78); TOTAL CELLS COUNTED % (AUTO) 100 %
--- NOTE | 2017-10-19 21:10 | RADIOLOGY REPORT (SQ) ---
EXAM DESCRIPTION: CHEST 2 VIEWS COMPLETED DATE/TIME: 10/19/2017 8:55 pm REASON FOR STUDY: cough, fever COMPARISON: 08/30/2017 EXAM PARAMETERS: NUMBER OF VIEWS: two views TECHNIQUE: Digital Frontal and Lateral radiographic views of the chest acquired. RADIATION DOSE: NA LIMITATIONS: none FINDINGS: LUNGS AND PLEURA: No opacities, masses or pneumothorax. No pleural effusion. MEDIASTINUM AND HILAR STRUCTURES: No masses or contour abnormalities. HEART AND VASCULAR STRUCTURES: Heart normal size. No evidence for failure. BONES: No acute findings. HARDWARE: None in the chest. OTHER: No other significant finding. IMPRESSION: NO ACUTE RADIOGRAPHIC FINDING IN THE CHEST. TECHNICAL DOCUMENTATION: JOB ID: [id number] [employer]- All Rights Reserved Reading location - IP/workstation name: [email or web address]
[2017-10-19 21:17] LABS: ALANINE AMINOTRANSFERASE 32 U/L (9-52); ALKALINE PHOSPHATASE 80 U/L (38-126); ANION GAP 15 (5-19); APPEARANCE,URINE SLIGHTLY-CLOUDY; ASPARTATE AMINO TRANSFERASE 30 U/L (14-36); BILIRUBIN,DIRECT 0.4 mg/dL (0.0-0.4); BILIRUBIN,TOTAL 0.8 mg/dL (0.2-1.3); BILIRUBIN,URINE NEGATIVE (NEGATIVE); BLOOD UREA NITROGEN 16 mg/dL (7-20); CALCIUM 9.3 mg/dL (8.4-10.2); CARBON DIOXIDE 26 mmol/L (22-30); CHLORIDE 99 mmol/L (98-107); COLOR,URINE YELLOW; GLUCOSE 179 mg/dL (75-110); GLUCOSE, URINE NEGATIVE (NEGATIVE); KETONES,URINE NEGATIVE (NEGATIVE); LEUKOCYTE ESTERASE,URINE LARGE (NEGATIVE); NITRITE,URINE NEGATIVE (NEGATIVE); POTASSIUM 4.1 mmol/L (3.6-5.0); PROTEIN,URINE NEGATIVE (NEGATIVE); SODIUM 140.2 mmol/L (137-145); TOTAL PROTEIN 7.6 g/dL (6.3-8.2); URINE SPECIFIC GRAVITY 1.016; UROBILINOGEN,URINE NEGATIVE mg/dL (<2.0)
[2017-10-19] MEDS ORDERED: DOXYCYCLINE HYCLATE 100 MG TABLET PO ONE (22:14)
[2017-10-19 22:51] VITALS: BP 125/61
== END 2017-10-19 22:41 | disposition home or self-care (01) ==
LOC: ER 19:41
DX: J18.9 Pneumonia, unspecified organism (principal); R50.9 Fever, unspecified; R05 Cough; R51 Headache; J45.909 Unspecified asthma, uncomplicated; I10 Essential (primary) hypertension; R53.83 Other fatigue; R11.0 Nausea; R01.1 Cardiac murmur, unspecified; Z88.8 Allergy status to other drugs, medicaments and biological substances
CPT/HCPCS: 99284; 96360; 36415; 85025; 80053; 81001; 83605; 71046; S0119; J7040

== ENCOUNTER → 2018-02-12 | Outpatient (CLI) | payer MEDICARE, OTHER ==
--- NOTE | 2018-02-12 10:06 | WOMENS IMAGING REPORT ---
EXAM DESCRIPTION: U/S BREAST UNILAT LIMITED COMPLETE DATE/TIME: 02/12/2018 9:38 am REASON FOR STUDY: LT NIPPLE DISCHARGE N64.52 NIPPLE DISCHARGE FINDINGS: Please see combined report for performance of procedure and radiologic supervision and int erpretation. IMPRESSION: Please see combined report for performance of procedure and radiologic supervision and i nterpretation. Reading location - IP/workstation name: [email or web address]
== END ==
LOC: WI 09:00
PROVIDERS: ATTEND Family Medicine
DX: N64.52 Nipple discharge (principal)
CPT/HCPCS: 76642; 77066

== ENCOUNTER → 2018-02-12 | Outpatient (CLI) | payer MEDICARE ==
[2018-02-12 09:35] LABS: ANION GAP 10 (5-19); BLOOD UREA NITROGEN 15 mg/dL (7-20); CALCIUM 9.5 mg/dL (8.4-10.2); CARBON DIOXIDE 31 mmol/L (22-30); CHLORIDE 102 mmol/L (98-107); GLUCOSE 113 mg/dL (75-110); POTASSIUM 3.8 mmol/L (3.6-5.0); SODIUM 142.5 mmol/L (137-145); TRIGLYCERIDES 139 mg/dL (<150)
[2018-02-12 09:51] LABS: DIRECT LDL 89 mg/dL (<100)
[2018-02-13 12:38] LABS: CREATININE URINE 257.1 mg/dL (Not Estab.); MICROALBUMIN URINE 32.5 ug/mL (Not Estab.)
== END ==
LOC: OD 08:01
PROVIDERS: ATTEND Family Medicine
DX: E11.65 Type 2 diabetes mellitus with hyperglycemia (principal); E78.5 Hyperlipidemia, unspecified; Z79.899 Other long term (current) drug therapy
CPT/HCPCS: 36415; 80048; 80061; 82043; 82570; 83036; 84443

== ENCOUNTER 2018-04-23 09:18 | Emergency (ER) | payer MEDICARE, MEDICAID ==
--- NOTE | 2018-04-23 10:48 | ER Document Report ---
HPI - HPI Patient complains to provider of: left arm pain Time Seen by Provider: 04/23/18 10:06 Pain Level: 4 Context: 63-year-old female with insulin-dependent diabetes mellitus, hypertension, chronic pain presents to the emergency department for left arm pain after her recliner fell on it after lifting it when trying to vacuum 3 weeks ago. Patient states the pain is superior to the left elbow and will radiate proximally and distally when it moves a certain way. Patient denies any paresthesias. Patient denies fevers or chills. Denies loss of range of motion. 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 She denies nausea or vomiting. She denies abdominal pain. She denies any other trauma. - CONSTITUTIONAL Constitutional: DENIES: Fever, Chills - REPRODUCTIVE Reproductive: DENIES: : - MUSCULOSKELETAL Musculoskeletal: REPORTS: Extremity pain - left arm Past Medical History - Social History Smoking Status: Never Smoker Chew tobacco use (# tins/day): No Frequency of alcohol use: None Drug Abuse: None Family History: CAD, DM, Hyperlipidemia, Hypertension, Malignancy, Thyroid Disfunction Patient has suicidal ideation: No Patient has homicidal ideation: No - Past Medical History Cardiac Medical History: Reports: Hx Hypercholesterolemia, Hx Hypertension Denies: Hx Heart Attack Pulmonary Medical History: Reports: Hx Asthma, Hx Bronchitis Denies: Hx COPD, Hx Pneumonia, Hx Tuberculosis Neurological Medical History: Denies: Hx Seizures Endocrine Medical History: Reports: Hx Diabetes Mellitus Type 2 Renal/ Medical History: Denies: Hx Peritoneal Dialysis GI Medical History: Reports: Hx Gastroesophageal Reflux Disease Musculoskeletal Medical History: Reports Hx Arthritis, Reports Hx Musculoskeletal Deformity Past Surgical History: Reports: Hx Section, Hx Cholecystectomy, Hx Orthopedic Surgery - Carpal tunnel. Denies: Hx Hysterectomy - Immunizations Immunizations up to date: Yes Hx Diphtheria, Pertussis, Tetanus Vaccination: Yes Hx Pneumococcal Vaccination: 12/02/13 Vertical Provider Document - CONSTITUTIONAL Notes: PHYSICAL EXAMINATION: Reviewed vital signs and charting by RN GENERAL: Alert, interacts well. No acute distress. HEAD: Normocephalic, atraumatic. EYES: Pupils equal, round. Extraocular movements intact. ENT: Oral mucosa moist, tongue midline. NECK: Full range of motion. Supple. Trachea midline. LUNGS: Clear to auscultation bilaterally, no wheezes, rales, or rhonchi. No respiratory distress. HEART: Regular rate and rhythm. No murmur ABDOMEN: soft, non-tender. Non-distended. Bowel sounds present in all 4 quadrants. no McBurney's point tenderness, no Kerr sign. EXTREMITIES: Moves all 4 extremities spontaneously. No edema, No cyanosis. Ten derness to palpation lateral aspect of left upper extremity at the level of the elbow with radiating pain to her shoulder, no edema or ecchymosis. Full range of motion. 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 BACK: no cervical, thoracic, lumbar midline tenderness. No saddle anesthesia, normal distal neurovascular exam. NEUROLOGICAL: Alert and oriented x3. Normal speech. PSYCH: Normal affect, normal mood. SKIN: Warm, dry, normal turgor. No rashes or lesions noted. - INFECTION CONTROL TRAVEL OUTSIDE OF THE [place] IN LAST 30 DAYS: No Course - Re-evaluation Re-evalutation: 04/23/18 10:47 Overall well-appearing 63-year-old female with remote trauma to the left arm 3 weeks ago who has IDDM. She is on chronic hydrocodone, gabapentin, and "antispasm "medications so there is most likely an element of hyperesthesia present. I will get an x-ray of the left elbow and shoulder to ensure there is no evidence of fracture in the healing stages as it is unclear 04/23/18 11:40 X-rays were negative for any fracture distal. One view it appears that there could be an AC separation. There is no acute process at this time that would require emergent treatment. We will place her in a sling and have her follow-up with orthopedics. Discharge - Discharge Clinical Impression: Left arm pain Condition: Good Disposition: HOME, SELF-CARE Additional Instructions: You were seen in the emergency department this morning arm pain after an injury 3 weeks ago. The x-rays were negative for any fractures. 1 of the views did indicate that you may have a separation of your acromioclavicular joint. This typically happens when there is ligament damage. We are going to place you in a sling for protection. You should follow-up with your primary care doctor in the next 24-48 hours. We will also give the information for orthopedics and can follow up with them. If you lose sensation in the arm, your arm starts to turn blue, you can use your arm at all, or have any other concerning symptoms please immediately return to the emergency department. Referrals: JOVITA UP MD [Primary Care Provider] - Follow up as needed
--- NOTE | 2018-04-23 11:20 | RADIOLOGY REPORT (SQ) ---
EXAM DESCRIPTION: ELBOW LEFT OVER 2 VIEWS COMPLETED DATE/TIME: 04/23/2018 11:09 am REASON FOR STUDY: trauma COMPARISON: None. NUMBER OF VIEWS: Four views. TECHNIQUE: AP, lateral, and both oblique radiographic images acquired of the left elbow. LIMITATIONS: None. FINDINGS: MINERALIZATION: Normal. BONES: No acute fracture or dislocation. No worrisome bone lesions. JOINT: No effusion. SOFT TISSUES: No soft tissue swelling. No foreign body. OTHER: No other significant finding. IMPRESSION: 1. NEGATIVE STUDY OF THE LEFT ELBOW. TECHNICAL DOCUMENTATION: JOB ID: [id number] [employer]- All Rights Reserved Reading location - IP/workstation name: [email or web address]
--- NOTE | 2018-04-23 11:21 | RADIOLOGY REPORT (SQ) ---
EXAM DESCRIPTION: SHOULDER LEFT 2 OR MORE VIEWS COMPLETED DATE/TIME: 04/23/2018 11:09 am REASON FOR STUDY: trauma COMPARISON: None. NUMBER OF VIEWS: Three views. TECHNIQUE: Internal rotation, external rotation, and Y view images acquired of the left shoulder. LIMITATIONS: None. FINDINGS: MINERALIZATION: Normal. BONES: No acute fracture or dislocation. No worrisome bone lesions. JOINTS: No dislocation. VISUALIZED LUNGS AND RIBS: No pneumothorax. No rib fracture. SOFT TISSUES: No radiopaque foreign body. OTHER: No other significant finding. IMPRESSION: 1. NEGATIVE STUDY OF THE LEFT SHOULDER. TECHNICAL DOCUMENTATION: JOB ID: [id number] [employer] All Rights Reserved Reading location - IP/workstation name: [email or web address]
[2018-04-23] MEDS ORDERED: LIDOCAINE 5% (700 MG) TRANSDERMAL ADH..PATCH TP ONE (11:50)
== END 2018-04-23 11:57 | disposition home or self-care (01) ==
LOC: ER 09:18
DX: M79.622 Pain in left upper arm (principal); W20.8XXA Other cause of strike by thrown, projected or falling object, initial encounter; Y93.E3 Activity, vacuuming; I10 Essential (primary) hypertension; J45.909 Unspecified asthma, uncomplicated; E11.9 Type 2 diabetes mellitus without complications; Z79.891 Long term (current) use of opiate analgesic; Z79.899 Other long term (current) drug therapy
CPT/HCPCS: 99283

== ENCOUNTER 2018-05-27 11:53 | Emergency (ER) | payer MEDICARE, MEDICAID ==
--- NOTE | 2018-05-27 12:44 | ER Document Report ---
ED Flu Like - General Chief Complaint: Flu Symptoms Stated Complaint: FEVER Primary Care Provider: JOVITA UP MD [Primary Care Provider] - Follow up tomorrow TRAVEL OUTSIDE OF THE [place] IN LAST 30 DAYS: No - HPI Notes: 63-year-old female with a medical history of diabetes and hypertension presents to the ED for complaints of flulike symptoms with nasal congestion, body aches, cough that has become progressively worse over the last 2 days. Her sister was just diagnosed with the flu yesterday. Patient did get the flu shot. Has not tried any jiwa-fig-[id number] medications for her symptoms. Decreased eating but drinking without issues. Reports chills and fever. Denies chest pain,palpitations, shortness of breath, dyspnea, nausea, vomiting, diarrhea, abdominal pain, hematuria,blurred vision, double vision, loss of vision, speech changes, LH, dizziness, syncope, headaches, wheezing, ST, neck pain, weakness, bowel or bladder dysfunction, saddle anesthesia, numbness or tingling in bilateral upper or lower extremities equally, muscle paralysis, weakness in bilateral upper or lower extremities equally or rash. - Related Data Allergies/Adverse Reactions: naproxen [From Aleve] Allergy (Verified 05/27/18 12:00) diphenhydramine HCl [From Benadryl] Adverse Reaction (Mild, Verified 05/27/18 12:00) makes me feel funny Past Medical History - General Information source: Patient - Social History Smoking Status: Former Smoker Family History: CAD, DM, Hyperlipidemia, Hypertension, Malignancy, Thyroid Disfunction - Past Medical History Cardiac Medical History: Reports: Hx Hypercholesterolemia, Hx Hypertension Denies: Hx Heart Attack Pulmonary Medical History: Reports: Hx Asthma, Hx Bronchitis Denies: Hx COPD, Hx Pneumonia, Hx Tuberculosis Neurological Medical History: Denies: Hx Seizures Endocrine Medical History: Reports: Hx Diabetes Mellitus Type 2 Renal/ Medical History: Denies: Hx Peritoneal Dialysis GI Medical History: Reports: Hx Gastroesophageal Reflux Disease Musculoskeletal Medical History: Reports Hx Arthritis, Reports Hx Musculoskeletal Deformity Past Surgical History: Reports: Hx Section, Hx Cholecystectomy, Hx Orthopedic Surgery - Carpal tunnel. Denies: Hx Hysterectomy - Immunizations Immunizations up to date: Yes Hx Diphtheria, Pertussis, Tetanus Vaccination: Yes Hx Pneumococcal Vaccination: 12/02/13 Review of Systems - Review of Systems Constitutional: No symptoms reported EENT: See HPI Cardiovascular: No symptoms reported Respiratory: See HPI Gastrointestinal: No symptoms reported Genitourinary: No symptoms reported Female Genitourinary: No symptoms reported Musculoskeletal: No symptoms reported Skin: No symptoms reported Hematologic/Lymphatic: No symptoms reported Neurological/Psychological: No symptoms reported Physical Exam - Vital signs Vitals: Temp Pulse Resp BP Pulse Ox 100.5 F H 107 H 20 156/75 H 96 05/27/18 12:13 05/27/18 12:13 05/27/18 12:13 05/27/18 12:13 05/27/18 12:13 - Notes Notes: PHYSICAL EXAMINATION: GENERAL: Well-appearing, well-nourished and in no acute distress. HEAD: Atraumatic, normocephalic. EYES: Pupils equal round and reactive to light, extraocular movements intact, conjunctiva are normal. ENT: TM intact with bilateral serous effusion, no erythema. Nares boggy bilaterally, oropharynx with erythema without exudates. Moist mucous membranes. NECK: Normal range of motion, supple without lymphadenopathy LUNGS: Minutes breath sounds to bilateral upper lobes no wheezes rales or rhonchi. HEART: Regular rate and rhythm without murmurs ABDOMEN: Soft, nontender, nondistended abdomen. No guarding, no rebound. No masses appreciated. Female : deferred Musculoskeletal: Normal range of motion, no pitting or edema. No cyanosis. NEUROLOGICAL: Cranial nerves grossly intact. Normal speech, normal gait. Normal sensory, motor exams PSYCH: Normal mood, normal affect. SKIN: Warm, Dry, normal turgor, no rashes or lesions noted. Course - Re-evaluation Re-evalutation: 05/27/18 12:48 63-year-old female with a fever of 100.1F, in no distress presents for evaluation of flulike symptoms and cough. Chest x-ray is negative for any pneumonia. Patient did test positive for influenza A, rapid strep is negative. CBC negative for leukocytosis or anemia. Accu-Chek was 74. CMP unremarkable. Patient given 650 mg of Tylenol for fever. Patient clinically appears to have influenza. Advised to increase hydration with Pedialyte, decreased fevers by giving antipyretics such as Tylenol and ibuprofen on a staggered dosing schedule. Advised to rest. Advised to stay home as to not expose any other individuals to flu. Patient is still experiencing high fevers while on a rotating schedule of ibuprofen and Tylenol, not drinking, return to the emergency room immediately. Follow-up with PCP within 3 days. All questions and concerns answered by this provider. I have reevaluated this patient multiple times and no significant life threatening changes, no signs of toxicity, sepsis or peritonitis are noted. The patient and I have discussed the diagnosis and risks, and we agree with discharging home and close follow-up. We also discussed returning to the Emergency Department immediately if new or worsening symptoms occur with the understanding that symptoms and presentations can change. At this time will discharge with return precautions and follow-up recommendations. Verbal discharge instructions given a the bedside and opportunity for questions given. We have discussed the symptoms which are most concerning (e.g., vomiting, cp, sob, abdominal pain, weakness, etc) that necessitate immediate return. Medication warnings reviewed. All questions and concerns answered by this provider. Patient is in agreement with this plan and has verbalized understanding of return precautions and the need for primary care follow-up in the next 24-72 hours. Patient verbalized understanding of plan of care and agree with plan of care. Patient felt okay to be discharged home. - Vital Signs Vital signs: Temp Pulse Resp BP Pulse Ox 100.0 F 92 18 144/77 H 100 05/27/18 13:55 05/27/18 13:55 05/27/18 13:55 05/27/18 13:55 05/27/18 13:55 - Laboratory Result Diagrams: 05/27/18 13:11 05/27/18 13:11 Laboratory results interpreted by me: 05/27/18 05/27/18 13:11 13:11 Monocytes % 13.7 H Carbon Dioxide 31 H Discharge - Discharge Clinical Impression: Influenza A, Cough Condition: Stable Instructions: Acetaminophen, Cough Suppressant & Expectorant Medications, Influenza ([facility]) [id number] Additional Instructions: Influenza What are conditions that should receive medical attention? The development of difficulty breathing. Lip color changes to blue or purple. Persistent vomiting and unable to keep liquids down with signs of dehydration such as: dizziness when standing, unable to urinate, or if child/infant is crying no tears are noticed. Is less responsive than normal or becomes confused. How do I decrease the spread of flu in my home? Taking care of the sick patient at home: Keep the sick person in a room separate from the common areas of the house. Keep the "sickroom" door closed. If the person with the flu needs to leave the home, they should cover their nose/mouth when coughing or sneezing and wear a disposable (surgical) mask if available. These masks may be available at your local pharmacy, medical supply and hardware store. If the sick person is in common areas of the house, have them wear a surgical mask. If possible, have the sick person use a separate bathroom that should be cleaned daily with a household disinfectant. If you are the caregiver: Avoid being face to face with the sick adult person as much as possible. Try to stay at least 6 feet away and wear a disposable surgical mask when possible. When holding small children who are sick, place their chin on your shoulder so that they will not cough in your face. Wash your hands after you touch the sick person or handle their tissues and laundry. Wear a mask if you leave home, as you may be infected from taking care of someone and not know it yet. Watch yourself and others in the home for flu symptoms and contact your doctor if symptoms occur. NOTE: Antiviral medication used to reduce the symptoms of the flu works only if taken within 48 hours, and best within 24 hours of symptom onset. Household Cleaning, laundry and waste disposal: Tissues and other disposable items used by the sick person should be thrown away in the trash. Wash your hands after touching these used items. No special waste disposal is required. Keep surfaces (especially bedside tables, bathroom surfaces, and toys for children) clean by wiping them down with a safe household disinfectant according to the directions on the product label. Per CDC advice, most people will not receive testing to confirm flu. Also based on the person's health history and onset of symptoms, not all patients will receive prescriptions for antiviral medications. If you have questions related to this, please ask your healthcare provider. For more information, you can call the Centers for Disease Control and Prevention (CDC) Hotline at 3-861-FVM-INFO This line is available in Cuban and Swedish, 24 hours a day, 7 days a week. Or www.[employer] or www.cdc.gov Flu-Like Illness Home Instructions: The influenza virus infection can cause a wide rage of symptoms, including: Fever, cough, sore throat, body aches, headaches, chills, fatigue, with some patients reporting diarrhea and vomiting Like seasonal influenza A, H1N1 ("swine flu")in humans can vary in severity from mild to severe Severe illness with pneumonia, respiratory failure and even is possible Certain groups might be more likely to develop a severe illness from H1N1 infection. Sometimes bacterial infections may occur at the same time as or after infection with influenza viruses and lead to pneumonias, ear infections, or sinus infections. How Flu Spreads The main way that influenza viruses spread is through respiratory droplets of coughs and sneezes. This can happen when someone with the infection coughs or sneezes and the particles fly through the air and land on other people and surfaces. If the person covers their mouth and nose with their hand but does not wash their hands immediately, then these germs are passed onto the next object t hat they touch. People with Influenza A or suspected H1N1 (swine flu) who are cared for at home should: Check with their doctor about any special care that they might need if they are or have a health condition such as diabetes, heart disease, asthma or emphysema. Also, limit caregiver to one (if possible). women or those with chronic health conditions should not take care of the flu patient unless necessary. Check with their doctor about whether or not medications are needed that may lessen the symptoms of the flu. Stay at home until 24 hours fever free without the use of fever reducing medication. Get plenty of rest and avoid other healthy people in your home. Drink plenty of clear liquids to keep from getting dehydrated. Take medications like Tylenol (Acetaminophen), Advil/Motrin/Nuprin (Ibuprofen) or Aleve (Naproxen) for fevers and aches. All children under the age of 18 years of age should not take aspirin or products containing aspirin (e.g. Pepto Bismol), as this can cause a rare serious illness called Candis Syndrome. Over the counter medications for flu and colds may help, but it is very important to follow the package directions. Remember that the medicine may help the symptoms, but it will not help prevent others from getting sick if they are around you. Cover coughs and sneezes using your bent arm. Clean hands with soap and water or an alcohol-based hand rub often, especially after using tissues to cough or sneeze. Encourage hand washing frequently for all people living in the home! The sick person should not have visitors other than caregivers. Encourage concerned loved ones to call instead of visit. Avoid close contact with others-do not go to work or school while sick. Prescriptions: Albuterol Sulfate [Proair Respiclick] 90 mcg IH Q4HP PRN #1 [id number] PRN Reason: Oseltamivir Phosphate [Tamiflu 75 mg Capsule] 75 mg PO BID #10 capsule Oseltamivir Phosphate [Tamiflu 75 mg Capsule] 75 mg PO BID #10 capsule Referrals: JOVITA UP MD [Primary Care Provider] - Follow up tomorrow
[2018-05-27] MEDS ORDERED: IPRATROPIUM/ALBUTEROL 0.5-2.5 MG/3 ML AMPUL NEB ONE (12:45)
--- NOTE | 2018-05-27 13:11 | RADIOLOGY REPORT (SQ) ---
EXAM DESCRIPTION: CHEST 2 VIEWS COMPLETED DATE/TIME: 05/27/2018 1:02 pm REASON FOR STUDY: cough, flu like symptoms COMPARISON: 10/19/2017 EXAM PARAMETERS: NUMBER OF VIEWS: two views TECHNIQUE: Digital Frontal and Lateral radiographic views of the chest acquired. RADIATION DOSE: NA LIMITATIONS: none FINDINGS: LUNGS AND PLEURA: No opacities, masses or pneumothorax. No pleural effusion. MEDIASTINUM AND HILAR STRUCTURES: No masses or contour abnormalities. HEART AND VASCULAR STRUCTURES: Heart normal size. No evidence for failure. BONES: No acute findings. HARDWARE: None in the chest. OTHER: No other significant finding. IMPRESSION: NO ACUTE RADIOGRAPHIC FINDING IN THE CHEST. TECHNICAL DOCUMENTATION: JOB ID: [id number] [employer]- All Rights Reserved Reading location - IP/workstation name: [email or web address]
[2018-05-27 13:27] LABS: ABSOLUTE EOSINOPHILS # (AUTO) 0.1 10^3/uL (0.0-0.6); ABSOLUTE LYMPHOCYTES (AUTO) 0.6 10^3/uL (0.5-4.7); ABSOLUTE MONOCYTES (AUTO) 0.7 10^3/uL (0.1-1.4); ABSOLUTE NEUT (AUTO) 3.4 10^3/uL (1.7-8.2); BASOPHILS % (AUTO) 0.7 % (0-2); EOSINOPHILS % (AUTO) 2.1 % (0-6); HEMATOCRIT 37.3 % (36.0-47.0); HEMOGLOBIN 12.5 g/dL (12.0-15.5); LYMPHOCYTES % (AUTO) 13.3 % (13-45); MEAN CORPUSCULAR HEMOGLOBIN 30.1 pg (27.0-33.4); MEAN CORPUSCULAR HGB CONC 33.6 g/dL (32.0-36.0); MEAN CORPUSCULAR VOLUME 90 fl (80-97); MONOCYTES % (AUTO) 13.7 % (3-13); PLATELET COUNT 203 10^3/uL (150-450); RED BLOOD COUNT 4.15 10^6/uL (3.72-5.28); SEGMENTED NEUTROPHILS % (AUTO) 70.2 % (42-78); TOTAL CELLS COUNTED % (AUTO) 100 %; WHITE BLOOD COUNT 4.9 10^3/uL (4.0-10.5)
[2018-05-27 13:45] LABS: A TYPE INFLUENZA AG POSITIVE (NEGATIVE); B INFLUENZA AG NEGATIVE (NEGATIVE)
[2018-05-27] MEDS ORDERED: ACETAMINOPHEN 325 MG TABLET PO ONE (13:47)
[2018-05-27] MEDS ORDERED: ACETAMINOPHEN 325 MG TABLET ONE (13:54)
[2018-05-27 13:58] LABS: ALANINE AMINOTRANSFERASE 38 U/L (9-52); ALBUMIN 4.3 g/dL (3.5-5.0); ALKALINE PHOSPHATASE 79 U/L (38-126); ANION GAP 10 (5-19); ASPARTATE AMINO TRANSFERASE 32 U/L (14-36); BILIRUBIN,DIRECT 0.2 mg/dL (0.0-0.4); BILIRUBIN,TOTAL 0.5 mg/dL (0.2-1.3); BLOOD UREA NITROGEN 12 mg/dL (7-20); CALCIUM 9.7 mg/dL (8.4-10.2); CARBON DIOXIDE 31 mmol/L (22-30); CHLORIDE 102 mmol/L (98-107); GLUCOSE 92 mg/dL (75-110); POTASSIUM 4.2 mmol/L (3.6-5.0); SODIUM 142.7 mmol/L (137-145); TOTAL PROTEIN 7.9 g/dL (6.3-8.2)
[2018-05-27 14:28] VITALS: BP 140/70
== END 2018-05-27 14:23 | disposition home or self-care (01) ==
LOC: ER 11:53
DX: J10.1 Influenza due to other identified influenza virus with other respiratory manifestations (principal); R05 Cough; R50.9 Fever, unspecified; M79.10 Myalgia, unspecified site; R09.81 Nasal congestion; E11.9 Type 2 diabetes mellitus without complications; I10 Essential (primary) hypertension; J45.909 Unspecified asthma, uncomplicated
CPT/HCPCS: 94640; 99284; 36415; 87070; 87880; 82962; 85025; 80053; 87804; 71046; A9270 ×2; J7620

== ENCOUNTER 2018-06-11 13:22 | Emergency (ER) | payer MEDICARE, MEDICAID ==
--- NOTE | 2018-06-11 13:48 | ER Document Report ---
ED Medical Screen (RME) - General Chief Complaint: Shortness Of Breath Stated Complaint: COUGH,CONGESTION Time Seen by Provider: 06/11/18 13:36 Primary Care Provider: JOVITA UP MD [Primary Care Provider] - Follow up as needed Mode of Arrival: Ambulatory Information source: Patient Notes: She presents to the emergency department with complaints of cough for the past month or so. Since May. Patient reports she was treated for bronchitis on June 05 but she still coughing so bad that it is making her vomit. Reports she has used albuterol nebs at home without relief of symptoms. Denies diarrhea. Reports fever on and off. Patient has a history of diabetes. Denies chest pain denies urinary symptoms. I have greeted and performed a rapid initial assessment of this patient. A comprehensive ED assessment and evaluation of the patient, analysis of test results and completion of the medical decision making process will be conducted by additional ED providers. Dictation of this chart was performed using voice recognition software; therefore, there may be some unintended grammatical errors. TRAVEL OUTSIDE OF THE [place] IN LAST 30 DAYS: No - Related Data Allergies/Adverse Reactions: naproxen [From Aleve] Allergy (Verified 06/11/18 13:40) diphenhydramine HCl [From Benadryl] Adverse Reaction (Mild, Verified 06/11/18 13:40) makes me feel funny Past Medical History - Social History Chew tobacco use (# tins/day): No Frequency of alcohol use: None Drug Abuse: None Family history: Reviewed & Not Pertinent - Past Medical History Cardiac Medical History: Reports: Hx Hypercholesterolemia, Hx Hypertension Denies: Hx Heart Attack Pulmonary Medical History: Reports: Hx Asthma, Hx Bronchitis Denies: Hx COPD, Hx Pneumonia, Hx Tuberculosis Neurological Medical History: Denies: Hx Seizures Endocrine Medical History: Reports: Hx Diabetes Mellitus Type 2 Renal/ Medical History: Denies: Hx Peritoneal Dialysis GI Medical History: Reports: Hx Gastroesophageal Reflux Disease Musculoskeltal Medical History: Reports Hx Arthritis, Reports Hx Musculoskeletal Deformity Past Surgical History: Reports: Hx Section, Hx Cholecystectomy, Hx Orthopedic Surgery - Carpal tunnel. Denies: Hx Hysterectomy - Immunizations Immunizations up to date: Yes Hx Diphtheria, Pertussis, Tetanus Vaccination: Yes Physical Exam - Vital signs Vitals: Temp Pulse Resp BP Pulse Ox 98.1 F 97 18 183/81 H 96 06/11/18 13:26 06/11/18 13:26 06/11/18 13:26 06/11/18 13:26 06/11/18 13:26 Course - Vital Signs Vital signs: Temp Pulse Resp BP Pulse Ox 98.1 F 97 18 183/81 H 96 06/11/18 13:26 06/11/18 13:26 06/11/18 13:26 06/11/18 13:26 06/11/18 13:26 Doctor's Discharge - Discharge Referrals: JOVITA UP MD [Primary Care Provider] - Follow up as needed
--- NOTE | 2018-06-11 14:01 | RADIOLOGY REPORT (SQ) ---
EXAM DESCRIPTION: CHEST 2 VIEWS COMPLETED DATE/TIME: 06/11/2018 1:52 pm REASON FOR STUDY: cough for 3 weeks COMPARISON: 05/27/2018 EXAM PARAMETERS: NUMBER OF VIEWS: two views TECHNIQUE: Digital Frontal and Lateral radiographic views of the chest acquired. RADIATION DOSE: NA LIMITATIONS: none FINDINGS: LUNGS AND PLEURA: No opacities, masses or pneumothorax. No pleural effusion. MEDIASTINUM AND HILAR STRUCTURES: No masses or contour abnormalities. HEART AND VASCULAR STRUCTURES: Heart normal size. No evidence for failure. BONES: No acute findings. HARDWARE: None in the chest. OTHER: No other significant finding. IMPRESSION: 1. No significant interval changes since the prior examination dated 05/27/2018. No acu te findings. TECHNICAL DOCUMENTATION: JOB ID: [id number] [employer] All Rights Reserved Reading location - IP/workstation name: [email or web address]
--- NOTE | 2018-06-11 17:22 | ER Document Report ---
ED Respiratory Problem - General Chief Complaint: Shortness Of Breath Stated Complaint: COUGH,CONGESTION Time Seen by Provider: 06/11/18 13:36 Primary Care Provider: JOVITA SYKES MD [Primary Care Provider] - Follow up as needed Mode of Arrival: Ambulatory Information source: Patient Notes: Patient is a 63-year-old female comes to the emergency room with complaints of shortness of breath wheezing cough congestion runny nose. Patient was seen here on the 27 May diagnosed with influenza A. On June 05 she went to her primary doctor Dr. Sykes and she was told that she had bronchitis and he put her on Cheratussin AC/albuterol. Patient states she has taken almost the entire bottle. She states she has had fever off and on low-grade. She monitors her O2 and her O2 has been running from 94-98%. She gets into coughing fits that she coughs so hard that she vomits. She denies any chest pain denies any abdominal pain. Patient is a history of insulin-dependent diabetes and takes 7030 twice daily. She states she is coughing up some yellowish kind of phlegm. And gets into these coughing fits anytime a day or night laying down or standing up. She also states she needs more of her albuterol for her nebulizer treatments. TRAVEL OUTSIDE OF THE [place] IN LAST 30 DAYS: No - HPI Patient complains to provider of: Asthma, Cough, Short of breath Onset: Other Duration: Continuous - 2 weeks, Worse/persistent Initiating Event: Exposure to dust, Out of meds, URI Quality of pain: Achy Severity: Moderate Pain Level: 3 Context: denies: Malignancy, , Recent cardiac event, Recent foreign travel, Recent long distance trvl, Recent immobilization, Recent surgery, Smoker Short of Breath: Moderate Chest pain/discomfort: Constant Cough: Productive Sputum amount: Moderate Sputum color: Yellow Sputum consistency: Thick At home treatment: Bronchodilators - Cherrtussin/AC/albuterol Associated symptoms: Congestion, Cough, Facial pain, Headache Worsened by: Laying down bending over getting overheated Similar symptoms previously: Yes Recently seen / treated by doctor: Yes - Related Data Allergies/Adverse Reactions: naproxen [From Aleve] Allergy (Verified 06/11/18 13:40) diphenhydramine HCl [From Benadryl] Adverse Reaction (Mild, Verified 06/11/18 13:40) makes me feel funny Past Medical History - General Information source: Patient - Social History Smoking Status: Never Smoker Chew tobacco use (# tins/day): No Smoking Education Provided: No Frequency of alcohol use: Rare - and Drug Abuse: None Lives with: Family - Urine Family History: Reviewed & Not Pertinent, CAD, DM, Hyperlipidemia, Hypertension, Malignancy, Thyroid Disfunction Patient has suicidal ideation: No Patient has homicidal ideation: No - Past Medical History Cardiac Medical History: Reports: Hx Hypercholesterolemia, Hx Hypertension Denies: Hx Heart Attack Pulmonary Medical History: Reports: Hx Asthma, Hx Bronchitis Denies: Hx COPD, Hx Pneumonia, Hx Tuberculosis EENT Medical History: Denies: Eyes Neurological Medical History: Reports: None. Denies: Hx Seizures Endocrine Medical History: Reports: Hx Diabetes Mellitus Type 2 Renal/ Medical History: Denies: Hx Peritoneal Dialysis GI Medical History: Reports: Hx Gastroesophageal Reflux Disease Musculoskeletal Medical History: Reports Hx Arthritis, Reports Hx Musculoskeletal Deformity Past Surgical History: Reports: Hx Section, Hx Cholecystectomy, Hx Orthopedic Surgery - Carpal tunnel. Denies: Hx Hysterectomy - Immunizations Immunizations up to date: Yes Hx Diphtheria, Pertussis, Tetanus Vaccination: Yes Hx Pneumococcal Vaccination: 12/02/13 Review of Systems - Review of Systems Constitutional: No symptoms reported EENT: No symptoms reported, Double vision, Ear pain, Nose pain, Nose congestion, Nose discharge, Sinus pressure, Sinus discharge, Difficulty swallowing Cardiovascular: No symptoms reported Respiratory: See HPI, Cough, Hurts to breathe, Short of breath, Sputum, Wheezing Gastrointestinal: No symptoms reported Genitourinary: No symptoms reported Female Genitourinary: No symptoms reported Musculoskeletal: No symptoms reported Skin: No symptoms reported Hematologic/Lymphatic: No symptoms reported Neurological/Psychological: No symptoms reported -: Yes All other systems reviewed and negative Physical Exam - Vital signs Vitals: Temp Pulse Resp BP Pulse Ox 98.1 F 97 18 183/81 H 96 06/11/18 13:26 06/11/18 13:26 06/11/18 13:26 06/11/18 13:26 06/11/18 13:26 Interpretation: Hypertensive Notes: PHYSICAL EXAMINATION: GENERAL: Patient is a 63-year-old female comes into the emergency room complaining of cough congestion runny nose. Patient states that she has been also wheezing extensively. She was seen here on 325 and diagnosed with influenza A. She was treated with Tamiflu. She states she has not gotten much better and that that has gotten worse. She has had coughing that makes her vomit. She is here to be checked out. Currently she is in no apparent distress no audible wheeze. HEAD: Atraumatic, normocephalic. EYES: Pupils equal round and reactive to light, extraocular movements intact, conjunctiva are normal. ENT: examination head and upper airway showed nasal mucosa to be moderately erythematous and edematous with rhinorrhea that is noted to be is present as well. Patient displays minimal sinus tenderness to palpation of the frontals but none to the maxillary's. Bilateral TMs have slight amount of cerumen and on both TMs are visualized and are noted to be bulging with fluid behind them. Examination of the posterior pharynx shows moderate amount of erythema uvula is midline with erythema no exudate. Large amount of a yellowish greenish thick sputum is coming from the posterior pharynx. Airway is patent currently. NECK: Normal range of motion, supple without lymphadenopathy LUNGS: Auscultation patient's lungs show she has bilateral breath sounds breath sounds are increased throughout there is a faint inspiratory expiratory wheeze noted throughout all lung antunez. HEART: Regular rate and rhythm without murmurs ABDOMEN: Soft, nontender, nondistended abdomen. No guarding, no rebound. No masses appreciated. Female : deferred Musculoskeletal: Normal range of motion, no pitting or edema. No cyanosis. NEUROLOGICAL: Normal speech, normal gait. Normal sensory, motor exams PSYCH: Normal mood, normal affect. SKIN: Warm, Dry, normal turgor, no rashes or lesions noted. Course - Re-evaluation Re-evalutation: 06/11/18 17:34 Patient's course of stay here in the emergency room is been fairly benign. She has been comfortable sitting here. Her chest x-ray was negative for any acute f indings. And this is only compared with one done on 326. Patient did have some wheezing going on on auscultation and it has been all right at 2-2-1/2 weeks patient's symptoms and started. At this time we will go ahead and place her on Zithromax Z-Moises for the extended period of 4 days. Put her on some Chlor- Trimeton for an antihistamine to help dry. Patient is a diabetic so really do not want to place her on a steroid taper at this point in time. - Vital Signs Vital signs: Temp Pulse Resp BP Pulse Ox 98.1 F 97 18 183/81 H 96 06/11/18 13:26 06/11/18 13:26 06/11/18 13:26 06/11/18 13:26 06/11/18 13:26 Discharge - Discharge Clinical Impression: AB (asthmatic bronchitis) Qualifiers: Asthma severity: moderate Asthma persistence: persistent Asthma complication type: uncomplicated Qualified Code(s): J45.40 - Moderate persistent asthma, uncomplicated Condition: Good Disposition: HOME, SELF-CARE Instructions: Bronchitis With Bronchospasm (Wheezing) ([facility]) Additional Instructions: Home and rest. Medication as prescribed. As you have indicated to me you have Flonase nasal spray at home use 2 sprays each side of the nose once a day. Did use some nasal saline plain water spray her nose 4-5 times a day twice on each side. This helps reactivate the steroid and that helps thin the secretions and keep the nose moist. I am placing you on an antibiotic has basically been going over little over 3 weeks with this kind of a presentation of cold and thinks time to attempt something else. I cannot put you on steroids because your fragile diabetic so at this point time to your nebulizers every 4-6 hours as indicated. Highly suggest contacting her primary care for further intervention. Return to ER if having concerns or problems. Prescriptions: Acetaminophen with Codeine [Tylenol #3 Tablet] 1 each PO Q4HP PRN #25 tablet PRN Reason: Albuterol Sulfate [Ventolin 0.083% Neb 2.5 mg/3 ml Ampul] 1 vial NEB Q4 #60 vial Azithromycin [Zithromax 250 mg Tablet] 250 mg PO ASDIR PRN #6 tablet PRN Reason: Chlorpheniramine Maleate [Chlor-Trimeton Allergy 12 mg Repetab] 1 tab PO Q12 20 Days #1 pkg Referrals: JOVITA SYKES MD [Primary Care Provider] - Follow up as needed
[2018-06-11 17:49] VITALS: BP 133/82
== END 2018-06-11 17:49 | disposition home or self-care (01) ==
LOC: ER 13:22
DX: J45.40 Moderate persistent asthma, uncomplicated (principal); R06.02 Shortness of breath; R05 Cough; R11.10 Vomiting, unspecified; R07.1 Chest pain on breathing; I10 Essential (primary) hypertension; E11.9 Type 2 diabetes mellitus without complications; Z79.4 Long term (current) use of insulin; J34.89 Other specified disorders of nose and nasal sinuses; H61.23 Impacted cerumen, bilateral
CPT/HCPCS: 71046; 99283

== ENCOUNTER 2018-07-16 19:21 | Emergency (ER) | payer MEDICARE, MEDICAID ==
--- NOTE | 2018-07-16 23:22 | RADIOLOGY REPORT (SQ) ---
EXAM DESCRIPTION: XR CHEST 2 VIEWS COMPLETED DATE/TME: 07/16/2018 22:52 CLINICAL HISTORY: 63 years, Female, persistent cough/fever COMPARISON: 06/11/2018 and 05/27/2018 NUMBER OF VIEWS: Two TECHNIQUE: One PA and one lateral view of the chest LIMITATIONS: None FINDINGS: Cardiomediastinal silhouette is within normal limits. No lung consolidate. No pleural effusion. No pneumothorax. Osseous structures are without acute finding. On the lateral view, surgical clips project in the abdomen. IMPRESSION: No acute chest finding. copyright 2010 [employer]- All Rights Reserved
--- NOTE | 2018-07-16 23:37 | ER Document Report ---
ED General - General Chief Complaint: Fever Stated Complaint: COUGH/FEVER Time Seen by Provider: 07/16/18 22:35 Primary Care Provider: JOVITA UP MD [Primary Care Provider] - Follow up as needed Mode of Arrival: Ambulatory TRAVEL OUTSIDE OF THE [place] IN LAST 30 DAYS: No - Related Data Allergies/Adverse Reactions: naproxen [From Aleve] Allergy (Verified 06/11/18 13:40) diphenhydramine HCl [From Benadryl] Adverse Reaction (Mild, Verified 06/11/18 13:40) makes me feel funny Past Medical History - Social History Smoking Status: Never Smoker Chew tobacco use (# tins/day): No Family History: Reviewed & Not Pertinent, CAD, DM, Hyperlipidemia, Hypertension, Malignancy, Thyroid Disfunction Patient has suicidal ideation: No Patient has homicidal ideation: No - Past Medical History Cardiac Medical History: Reports: Hx Hypercholesterolemia, Hx Hypertension Denies: Hx Heart Attack Pulmonary Medical History: Reports: Hx Asthma, Hx Bronchitis Denies: Hx COPD, Hx Pneumonia, Hx Tuberculosis Neurological Medical History: Denies: Hx Seizures Endocrine Medical History: Reports: Hx Diabetes Mellitus Type 2 Renal/ Medical History: Denies: Hx Peritoneal Dialysis GI Medical History: Reports: Hx Gastroesophageal Reflux Disease Musculoskeletal Medical History: Reports Hx Arthritis, Reports Hx Musculoskeletal Deformity Past Surgical History: Reports: Hx Section, Hx Cholecystectomy, Hx Orthopedic Surgery - Carpal tunnel. Denies: Hx Hysterectomy - Immunizations Immunizations up to date: Yes Hx Diphtheria, Pertussis, Tetanus Vaccination: Yes Hx Pneumococcal Vaccination: 12/02/13 Physical Exam - Vital signs Vitals: Temp Pulse Resp BP Pulse Ox 99.3 F 106 H 20 146/77 H 96 07/16/18 19:51 07/16/18 19:51 07/16/18 19:51 07/16/18 19:51 07/16/18 19:51 Course - Vital Signs Vital signs: Temp Pulse Resp BP Pulse Ox 99.3 F 106 H 20 146/77 H 96 07/16/18 19:51 07/16/18 19:51 07/16/18 19:51 07/16/18 19:51 07/16/18 19:51 Discharge - Discharge Referrals: JOVITA UP MD [Primary Care Provider] - Follow up as needed
--- NOTE | 2018-07-16 23:46 | ER Document Report ---
ED General - General Chief Complaint: Fever Stated Complaint: COUGH/FEVER Time Seen by Provider: 07/16/18 22:35 Primary Care Provider: JOVITA UP MD [Primary Care Provider] - Follow up as needed Mode of Arrival: Ambulatory Information source: Patient TRAVEL OUTSIDE OF THE [place] IN LAST 30 DAYS: No - HPI Patient complains to provider of: Persistent cough, low-grade fever, runny nose Onset: Other - Symptoms have been going on to some degree for the past 6 weeks Onset/Duration: Gradual Quality of pain: Sharp Severity: Severe Pain Level: 4 Associated symptoms: Nonproductive cough, Fever. denies: Chills, Diarrhea, Nausea, Vomiting Exacerbated by: Denies Relieved by: Denies Similar symptoms previously: No Recently seen / treated by doctor: No Notes: 63-year-old female with multiple medical problems coming in today with chief complaint of persistent cough, fever, runny nose. She has been sick with similar symptoms off and on for about 6 weeks. Been seen a couple times here. Failed to improve on Zithromax, breathing treatments, Chlor-Trimeton. - Related Data Allergies/Adverse Reactions: naproxen [From Aleve] Allergy (Verified 06/11/18 13:40) diphenhydramine HCl [From Benadryl] Adverse Reaction (Mild, Verified 06/11/18 13:40) makes me feel funny Past Medical History - General Information source: Patient - Social History Smoking Status: Never Smoker Chew tobacco use (# tins/day): No Family History: Reviewed & Not Pertinent, CAD, DM, Hyperlipidemia, Hypertension, Malignancy, Thyroid Disfunction Patient has suicidal ideation: No Patient has homicidal ideation: No - Past Medical History Cardiac Medical History: Reports: Hx Hypercholesterolemia, Hx Hypertension Denies: Hx Heart Attack Pulmonary Medical History: Reports: Hx Asthma, Hx Bronchitis Denies: Hx COPD, Hx Pneumonia, Hx Tuberculosis Neurological Medical History: Denies: Hx Seizures Endocrine Medical History: Reports: Hx Diabetes Mellitus Type 2 Renal/ Medical History: Denies: Hx Peritoneal Dialysis GI Medical History: Reports: Hx Gastroesophageal Reflux Disease Musculoskeletal Medical History: Reports Hx Arthritis, Reports Hx Musculoskeletal Deformity Past Surgical History: Reports: Hx Section, Hx Cholecystectomy, Hx Orthopedic Surgery - Carpal tunnel. Denies: Hx Hysterectomy - Immunizations Immunizations up to date: Yes Hx Diphtheria, Pertussis, Tetanus Vaccination: Yes Hx Pneumococcal Vaccination: 12/02/13 Review of Systems - Review of Systems Notes: Constitutional: No fevers. No chills. EENT: No eye redness. No eye pain. No ear pain. No sore throat. Cardiovascular: No chest pain. No palpitations. Respiratory: Positive cough. No shortness of breath. No respiratory distress. Gastrointestinal: No abdominal pain. No nausea, vomiting, or diarrhea. Genitourinary: Atraumatic. No lesions. No pain. No discharge. Musculoskeletal: Atraumatic. No swelling. No deformities. Skin: No rash or lesions. Lymphatic: No swollen lymph nodes. Neurologic: No headache. No syncope. Psychiatric: No suicidal or homicidal ideation. Physical Exam - Vital signs Vitals: Temp Pulse Resp BP Pulse Ox 99.3 F 106 H 20 146/77 H 96 07/16/18 19:51 07/16/18 19:51 07/16/18 19:51 07/16/18 19:51 07/16/18 19:51 - Notes Notes: General: Well-developed, well-nourished. In no acute distress. Non-toxic appearing. Cardiac: Well-perfused. Regular rate and rhythm. No murmurs, rubs, or gallops. Pulmonary: No respiratory distress. No cyanosis. Bilateral lung fiels are clear to auscultation. Abdominal: Non-distended. Non-rigid. Bowels sounds are present in all four quadrants. No guarding or rebound. HEENT: Head is atraumatic. Conjunctivae not reddened. No tearing. PERRL. EOMI. Orbits atraumatic. No periorbital swelling or erythema. Oropharynx is without erythema, swelling, or exudates. Neck: Supple. No adenopathy. No meningismus. Dermatologic: Warm with good turgor. No rash. Atraumatic. Chest: Atraumatic. No chest wall tenderness to palpation. Musculoskeletal: Moves all extremities well. No range of motion deficits. no muscular or joint tenderness. No paraspinal muscle tenderness. no midline spinal tenderness or step-off. Genitourinary: Examination deferred Neurologic: No gross neurologic deficits. Psychiatric: Normal mood. Course - Re-evaluation Re-evalutation: 07/16/18 23:45 Vital signs are good. Sounds like she is getting a cough that is persistent. She will need to probably see pulmonology if this persists. I will start her on some Promethazine DM cough syrup which I do not believe that she is tried so far. She has tried a course of Zithromax, Chlor-Trimeton, breathing treatments. Her exam is normal. I will think she needs to be on another course of antibiotics. - Vital Signs Vital signs: Temp Pulse Resp BP Pulse Ox 99.3 F 106 H 20 146/77 H 96 07/16/18 19:51 07/16/18 19:51 07/16/18 19:51 07/16/18 19:51 07/16/18 19:51 Discharge - Discharge Clinical Impression: Cough Condition: Good Disposition: HOME, SELF-CARE Instructions: Acetaminophen, Viral Syndrome ([facility]), Cough Suppressant & Expectorant Medications Prescriptions: Promethazine/Dextromethorphan [Promethazine-Dm Syrup] 5 ml PO Q6HP PRN #120 ml PRN Reason: Referrals: JOVITA UP MD [Primary Care Provider] - Follow up as needed
[2018-07-17 00:16] VITALS: BP 153/79
== END 2018-07-17 00:29 | disposition home or self-care (01) ==
LOC: ER 19:21
DX: R05 Cough (principal); R50.9 Fever, unspecified; R09.89 Other specified symptoms and signs involving the circulatory and respiratory systems; I10 Essential (primary) hypertension; E11.9 Type 2 diabetes mellitus without complications; J45.909 Unspecified asthma, uncomplicated
CPT/HCPCS: 71046; 99283

== ENCOUNTER → 2018-08-29 | Outpatient (CLI) | payer MEDICARE | LOC: OD 15:38 | PROVIDERS: ATTEND Family Medicine | DX: E11.65 Type 2 diabetes mellitus with hyperglycemia (principal); Z79.899 Other long term (current) drug therapy | CPT/HCPCS: 36415; 83036 ==

== ENCOUNTER → 2018-10-09 | Outpatient (CLI) | payer MEDICARE | LOC: OD 15:08 | PROVIDERS: ATTEND Family Medicine | DX: M54.5 Low back pain (principal); Z79.899 Other long term (current) drug therapy | CPT/HCPCS: 36415; G0480; 80361 ==

== ENCOUNTER → 2018-10-21 | Outpatient (CLI) | payer MEDICAID, MEDICARE ==
--- NOTE | 2018-10-21 08:09 | ST Modified Barium Swallow ---
Recommendation - Recommendations Recommendations: No pharyngeal phase deficits seen this day, no diet change recommendations other than reflux precautions. Medical Diagnoses - Medical Diagnoses Medical Diagnosis Description & ICD-10 Code(s): dysphagia R13.10 Other Medical Diagnoses/Co-Morbidities: per patient report: frequent bronchitis, reflux, diverticulitis ST Modified Barium Swallow - General Date: 10/21/18 Referring Physician: Dr. Jay Levi Date of Onset: 07/02/18 - approximate onset date, patient states "3-4 months ago" Reason for Referral: chronic cough - History History obtained from: Patient -: Medical - per patient report: Patient states that she has had frequent coughing since significant episode of pneumonia and bronchitis 3-4 months ago. States she has had a chornic cough since that time, and increased sensation of foods getting stuck in her throat. Reports "choking episodes", not occuring daily and not with any specific textures or foods. Patient does also report a history of "really bad" reflux, for which she takes medication. She also reports that she can't have nuts because "they can get stuck in a pocket", presumably due to diverticulitus. Medications: per patient report: insulin, magnesium, metformin, novolin, nystatin, pantoprazole, potassium chlorice, amlodipine, atorvastatin, benzonatate, chlor, cyclobenzapr, furosemide, gabapentin, hydrocod. Allergies: per patient report: advil, aleve, benadril - Functional Status Prior Functional Status: INDEPENDENT: feeding - independent Current Functional Limitations: feeding - globus - Subjective Patient/caregiver goal(s): better swallow, r/o aspiration Cognitive-Linguistic Function: WNL Speech Intelligibility: WNL Current Nutritional Means: PO Current PO diet: Regular Current symptoms: Coughing Pain: Patient reports, 3/5 - back pain - Objective Assessment: Upright, Left Lateral - Food Trials Used Food trials used: Thin liquids, Pureed, Regular The patient: Was Able to Self Feed - Oral-Motor Skills Dentition: Full Velo-pharyngeal function: Unremarkable Laryngeal Function: clear voicing - Assessment Oral prep: Normal Labial closure: Adequate Leakage: None Mastication: Adequate Lingual Movement: Normal Oral stage: Normal for this Procedure - Pharyngeal Stage Initiation of Pharyngeal Stage Reflex: Normal Decreased laryngeal elevation: No Reduced Velopharyngeal Closure: no Reduced pressure generation: No reduced tongue-based retraction: No Pre-swallow pooling in valleculae: None Pre-Swallow pooling in pyriforms: None Reduced Thyro-Hyoid approximation: No Reduced epiglottic excursion: No Reduced pharyngeal peristalsis/contraction: No Post-swallow residulas vallecular: None Post-Swallow residuals in pyriforms: None Reduced Cricopharyngeal opening: No - Fall Risk Assessment Medications/Conditions that increase fall risks include: Antidepressants, sedatives, anti-arrhythmic, diuretic, benzodiazipenes, neuroleptics. BP regulation problems, cardiac problems, balance or gait deficits, neurological problems. Is patient considered at risk for falls: no Fall Risk Actions Taken: No action needed - Behavioral Observations During evaluation process patient: was cooperative, able to answer questions, provided medical history - Treatment / Educational Needs: Treatment/Education Needs: Treatment consisted of patient education on the role of the Speech Pathologist. Patient's plan of care and golas were communicated as well as scheduling and attendance policies. Recommendations for initial home program were shared. Patient demonstrated understanding and verbalized agreement. - Impression/Summary Laryngeal Penetration: Yes - trace laryngeal penetration seen with thin liquids, WNL Tracheal Aspiration: no Patient presents with: Normal swallow at eval Risk of Aspiration: Minimal Risk of nutritional compromise: None Evaluation and Findings: Adequate pharyngeal phase functioning. Trace laryngeal penetration of thin liquids seen without cough response, which is within normal limits. Some complaint of globus sensation with valerie cracker trial reported, however, bolus had moved below the level of the UES when this occured. - Recommendations Solid diet recommendations: Regular Liquid Diet Modification: Thin Dysphagia therapy with GUEST SERVICE MANAGER: no Reflux Precautions: Taught to Patient Recommended techniques: Fully Upright During Meal, Alternate Bites/Sips Information, Precautions and Recommendations: Patient (Written), Patient (Verbal) - Time Total Time: 30 - Plan of Care Strategies to optimize patient understanding include:: ongoing assessment of educational needs, implementation of educational strategies, and re-education. - - -: Thank you for the opportunity to work with this patient and his/her family. Should you have any questions about this patient's plan or progress, I can be reached at [phone].
--- NOTE | 2018-10-21 09:34 | RADIOLOGY REPORT (SQ) ---
EXAM DESCRIPTION: CT CHEST WITHOUT COMPLETED DATE/TIME: 10/21/2018 8:07 am REASON FOR STUDY: CHRONIC COUGH R05 COUGH R13.10 DYSPHAGIA, UNSPECIFIED COMPARISON: 04/19/2016 TECHNIQUE: CT scan performed of the chest without intravenous contrast. Images reviewed with lung, soft tissue and bone windows. Reconstructed coronal and sagittal MPR images reviewed. All images st ored on PACS. All CT scanners at this facility use dose modulation, iterative reconstruction, and/or weight based d osing when appropriate to reduce radiation dose to as low as reasonably achievable (ALARA). [facility]: Dose Right [facility]: CareDose [facility]: Dose Right [facility]: Teradose 4D [facility]: [employer] RADIATION DOSE: CT Rad equipment meets quality standard of care and radiation dose reduction techniq ues were employed. CTDIvol: 18.4 mGy. DLP: 689 mGy-cm. mGy. LIMITATIONS: No technical limitations. FINDINGS: LUNGS AND PLEURA: There are bilateral pulmonary nodules new from prior exam. On the right there is a subpleural nodule measured at 5.1 mm. This is best demonstrated on series 4, image 45. There is a 2.9 mm nodule on series 4, image 47. There is a 1.4 cm subpleural nodule best demonstrate d on series 4, image 40. In the left base there is a 6.6 mm slightly irregular nodule. This is best demonstrated on series 4, image 63. There are smaller 1 to 2 mm nodules as well. There is a 2 mm n odule best demonstrated on series 4, image 54. HILAR AND MEDIASTINAL STRUCTURES: There is adenopathy in the mediastinum with prominent nodes in the AP window and pretracheal region. The largest node measures 1.9 cm in diameter. It is better demons trated on today's study due to absence of contrast in the order resulting in artifact. It is probabl y stable in size. HEART AND VASCULAR STRUCTURES: No aneurysm. No pericardial effusion. UPPER ABDOMEN: No significant findings. Limited exam. THYROID AND OTHER SOFT TISSUES: The thyroid gland is asymmetric in size with the left lobe being larg er than the right. BONES: No significant finding. HARDWARE: None in the chest. OTHER: No other significant findings. IMPRESSION: 1. Numerous bilateral pulmonary nodules. The largest node on the right is measured 5.1 mm. On the left the largest nodule is measured at 6.6 mm. Recommend follow-up chest CT in 3 to 6 m [facility]. These are noncalcified. They could represent granulomas. Metastatic disease cannot be exclu ded. 2. Numerous mediastinal lymph nodes as described. These are not significantly changed when compared to prior study. TECHNICAL DOCUMENTATION: JOB ID: [id number] Quality ID # [id number]: Final reports with documentation of one or more dose reduction techniques (e.g., Au tomated exposure control, adjustment of the mA and/or kV according to patient size, use of iterative reconstruction technique) 2010 [employer]- All Rights Reserved Reading location - IP/workstation name: [email or web address]
--- NOTE | 2018-10-21 11:14 | RADIOLOGY REPORT (SQ) ---
EXAM DESCRIPTION: [place] SWALLOW COMPLETED DATE/TIME: 10/21/2018 8:41 am REASON FOR STUDY: DYSPHAGIA R05 COUGH R13.10 DYSPHAGIA, UNSPECIFIED recurrent pneumonia COMPARISON: None. TECHNIQUE: Videofluoroscopic swallowing examination was performed in conjunction with speech patholo gy. Videofluoroscopic imaging was obtained and reviewed and these are the findings: RADIATION DOSE: 56 seconds of fluoroscopy was used. 1 images saved to PACS. LIMITATIONS: None FINDINGS: The patient was brought into the fluoro room and placed upright on a modified barium swall ow chair. The patient was then given multiple consistencies mixed with barium to swallow under live fluoroscopic video guidance. According to the Speech Pathologist there was trace laryngeal penetrati on without aspiration IMPRESSION: TRACE LARYNGEAL PENETRATION WITHOUT ASPIRATION. PLEASE SEE SPEECH PATHOLOGIST REPORT FOR OTHER FINDINGS AND RECOMMENDATIONS. COMMENT: Quality ID 145: Final reports for procedures using fluoroscopy that document radiation exp osure indices, or exposure time and number of fluorographic images (if radiation exposure indices are not available) TECHNICAL DOCUMENTATION: JOB ID: [id number] [employer]- All Rights Reserved Reading location - IP/workstation name: [email or web address]
== END ==
LOC: RAD 07:54
PROVIDERS: ATTEND Internal Medicine Pulmonary Disease
DX: R05 Cough (principal); R13.10 Dysphagia, unspecified
CPT/HCPCS: 71250; 74230

== ENCOUNTER 2018-12-03 11:51 | Emergency (ER) | payer MEDICARE ==
--- NOTE | 2018-12-03 12:23 | ER Document Report ---
ED Medical Screen (RME) - General Chief Complaint: Headache Stated Complaint: MOUTH PAIN Time Seen by Provider: 12/03/18 12:09 Primary Care Provider: TERELL SHIN MD [Primary Care Provider] - Follow up as needed Mode of Arrival: Carried Information source: Patient Notes: 63-year-old female presents to ED for complaint of the worst headache in her life. She states that her head is throbbing and she cannot even think straight. She states she is started last night. Blood pressure is 182/110. She does have a history of high blood pressure cholesterol reflux thyroid and diabetes type 2. She states she broke a tooth off last night but this headache is severe. She states she has had a gallbladder removed and a and carpal tunnel surgery. I have greeted and performed a rapid initial assessment of this patient. A comprehensive ED assessment and evaluation of the patient, analysis of test results and completion of medical decision making process will be conducted by an additional ED providers. TRAVEL OUTSIDE OF THE [place] IN LAST 30 DAYS: No - Related Data Allergies/Adverse Reactions: naproxen [From Aleve] Allergy (Verified 12/03/18 12:06) diphenhydramine HCl [From Benadryl] Adverse Reaction (Mild, Verified 12/03/18 12:06) makes me feel funny Past Medical History - Social History Family history: Reviewed & Not Pertinent - Past Medical History Cardiac Medical History: Reports: Hx Hypercholesterolemia, Hx Hypertension Denies: Hx Heart Attack Pulmonary Medical History: Reports: Hx Asthma, Hx Bronchitis Denies: Hx COPD, Hx Pneumonia, Hx Tuberculosis Neurological Medical History: Denies: Hx Seizures, Hx Parkinson's Disease Endocrine Medical History: Reports: Hx Diabetes Mellitus Type 2 Renal/ Medical History: Denies: Hx Peritoneal Dialysis GI Medical History: Reports: Hx Gastroesophageal Reflux Disease Musculoskeltal Medical History: Reports Hx Arthritis, Reports Hx Musculoskeletal Deformity Past Surgical History: Reports: Hx Section, Hx Cholecystectomy, Hx Orthopedic Surgery - Carpal tunnel. Denies: Hx Hysterectomy - Immunizations Immunizations up to date: Yes Hx Diphtheria, Pertussis, Tetanus Vaccination: Yes Physical Exam - Vital signs Vitals: Temp Pulse Resp BP Pulse Ox 98.0 F 104 H 16 182/110 H 95 12/03/18 12:00 12/03/18 12:00 12/03/18 12:00 12/03/18 12:00 12/03/18 12:00 Course - Vital Signs Vital signs: Temp Pulse Resp BP Pulse Ox 98.0 F 104 H 16 182/110 H 95 12/03/18 12:00 12/03/18 12:00 12/03/18 12:00 12/03/18 12:00 12/03/18 12:00 Doctor's Discharge - Discharge Referrals: TERELL SHIN MD [Primary Care Provider] - Follow up as needed
--- NOTE | 2018-12-03 12:43 | RADIOLOGY REPORT (SQ) ---
EXAM DESCRIPTION: CT HEAD WITHOUT COMPLETED DATE/TIME: 12/03/2018 12:32 pm REASON FOR STUDY: severe headache worst headache of her life blood p COMPARISON: None. TECHNIQUE: Axial images acquired through the brain without intravenous contrast. Images reviewed wi th bone, brain and subdural windows. Additional sagittal and coronal reconstructions were generated. Images stored on PACS. All CT scanners at this facility use dose modulation, iterative reconstruction, and/or weight based d osing when appropriate to reduce radiation dose to as low as reasonably achievable (ALARA). [facility]: Dose Right [facility]: CareDose [facility]: Dose Right [facility]: Teradose 4D [facility]: [employer] RADIATION DOSE: CT Rad equipment meets quality standard of care and radiation dose reduction techniq ues were employed. CTDIvol: 53.2 mGy. DLP: 1177 mGy-cm. mGy. LIMITATIONS: None. FINDINGS: VENTRICLES: Normal size and contour. CEREBRUM: No masses. No hemorrhage. No midline shift. No evidence for acute infarction. Normal gra y/white matter differentiation. No areas of low density in the white matter. CEREBELLUM: No masses. No hemorrhage. No alteration of density. No evidence for acute infarction. EXTRAAXIAL SPACES: No fluid collections. No masses. ORBITS AND GLOBE: No intra- or extraconal masses. Normal contour of globe without masses. CALVARIUM: No fracture. PARANASAL SINUSES: No fluid or mucosal thickening. SOFT TISSUES: No mass or hematoma. OTHER: No other significant finding. IMPRESSION: NORMAL BRAIN CT WITHOUT CONTRAST. EVIDENCE OF ACUTE STROKE: NO. COMMENT: Quality ID # 436: Final reports with documentation of one or more dose reduction techniques (e.g., Automated exposure control, adjustment of the mA and/or kV according to patient size, use of iterative reconstruction technique) TECHNICAL DOCUMENTATION: JOB ID: [id number] [employer]- All Rights Reserved Reading location - IP/workstation name: [email or web address]
[2018-12-03] MEDS ORDERED: MORPHINE SULFATE 10 MG/ML INJ IV ONE (13:10)
[2018-12-03 13:20] LABS: INTERNATIONAL RATION (INR) 1.03; PROTHROMBIN TIME 13.6 SEC (11.4-15.4)
[2018-12-03 13:21] LABS: PARTIAL THROMBOPLASTIN TIME 27.6 SEC (23.5-35.8)
[2018-12-03 13:36] LABS: ABSOLUTE EOSINOPHILS # (AUTO) 0.1 10^3/uL (0.0-0.6); ABSOLUTE LYMPHOCYTES (AUTO) 1.7 10^3/uL (0.5-4.7); ABSOLUTE MONOCYTES (AUTO) 0.4 10^3/uL (0.1-1.4); ABSOLUTE NEUT (AUTO) 8.9 10^3/uL (1.7-8.2); BASOPHILS % (AUTO) 0.4 % (0-2); EOSINOPHILS % (AUTO) 0.7 % (0-6); HEMOGLOBIN 13.3 g/dL (12.0-15.5); LYMPHOCYTES % (AUTO) 15.1 % (13-45); MEAN CORPUSCULAR HEMOGLOBIN 29.6 pg (27.0-33.4); MEAN CORPUSCULAR HGB CONC 33.2 g/dL (32.0-36.0); MEAN CORPUSCULAR VOLUME 89 fl (80-97); MONOCYTES % (AUTO) 3.4 % (3-13); PLATELET COUNT 265 10^3/uL (150-450); RED CELL DISTRIBUTION WIDTH 12.9 % (11.5-14.0); SEGMENTED NEUTROPHILS % (AUTO) 80.4 % (42-78); TOTAL CELLS COUNTED % (AUTO) 100 %
[2018-12-03 13:40] LABS: ALBUMIN 4.6 g/dL (3.5-5.0); ALKALINE PHOSPHATASE 89 U/L (38-126); ANION GAP 13 (5-19); ASPARTATE AMINO TRANSFERASE 29 U/L (14-36); BILIRUBIN,DIRECT 0.1 mg/dL (0.0-0.4); BILIRUBIN,TOTAL 0.5 mg/dL (0.2-1.3); BLOOD UREA NITROGEN 19 mg/dL (7-20); CALCIUM 10.2 mg/dL (8.4-10.2); CARBON DIOXIDE 27 mmol/L (22-30); CHLORIDE 102 mmol/L (98-107); CREATINE KINASE 98 U/L (30-135); GLUCOSE 170 mg/dL (75-110); POTASSIUM 3.6 mmol/L (3.6-5.0); TOTAL PROTEIN 8.4 g/dL (6.3-8.2)
[2018-12-03 13:49] LABS: TROPONIN I < 0.012 ng/mL
--- NOTE | 2018-12-03 14:51 | ER Document Report ---
ED General - General Chief Complaint: Headache Stated Complaint: MOUTH PAIN Time Seen by Provider: 12/03/18 12:09 Primary Care Provider: TERELL SHIN MD [ACTIVE STAFF] - Follow up as needed Mode of Arrival: Carried TRAVEL OUTSIDE OF THE [place] IN LAST 30 DAYS: No - HPI Notes: This is a 63-year-old female who presents today with a complaint of toothache. Patient states that she was chewing last night when her tooth broke. She had pain in the mandible which extends to the front of her head. She states that is making her head hurt.. She denies any fever or chills. She denies any other complaints. She describes the pain as an 8 /10. Pain is worse with chewing. - Related Data Allergies/Adverse Reactions: naproxen [From Aleve] Allergy (Verified 12/03/18 12:06) diphenhydramine HCl [From Benadryl] Adverse Reaction (Mild, Verified 12/03/18 12:06) makes me feel funny Past Medical History - General Information source: Patient - Social History Smoking Status: Never Smoker Family History: Reviewed & Not Pertinent, CAD, DM, Hyperlipidemia, Hypertension, Malignancy, Thyroid Disfunction Patient has suicidal ideation: No Patient has homicidal ideation: No - Past Medical History Cardiac Medical History: Reports: Hx Hypercholesterolemia, Hx Hypertension Denies: Hx Heart Attack Pulmonary Medical History: Reports: Hx Asthma, Hx Bronchitis Denies: Hx COPD, Hx Pneumonia, Hx Tuberculosis Neurological Medical History: Denies: Hx Seizures, Hx Parkinson's Disease Endocrine Medical History: Reports: Hx Diabetes Mellitus Type 2 Renal/ Medical History: Denies: Hx Peritoneal Dialysis GI Medical History: Reports: Hx Gastroesophageal Reflux Disease Musculoskeletal Medical History: Reports Hx Arthritis, Reports Hx Musculoskeletal Deformity Past Surgical History: Reports: Hx Section, Hx Cholecystectomy, Hx Orthopedic Surgery - Carpal tunnel. Denies: Hx Hysterectomy - Immunizations Immunizations up to date: Yes Hx Diphtheria, Pertussis, Tetanus Vaccination: Yes Hx Pneumococcal Vaccination: 12/02/13 Review of Systems - Review of Systems EENT: Mouth pain, Dental problem Neurological/Psychological: Headaches -: Yes All other systems reviewed and negative Physical Exam - Vital signs Vitals: Temp Pulse Resp BP Pulse Ox 98.0 F 104 H 16 182/110 H 95 12/03/18 12:00 12/03/18 12:00 12/03/18 12:00 12/03/18 12:00 12/03/18 12:00 - General General appearance: Appears well, Alert - HEENT Head: Normocephalic, Atraumatic Eyes: Normal Pupils: PERRL Mouth/Lips: Other - There is a missing tooth. Dental decay. There is evidence of broken right lower incisor. There is tenderness of the mandible. No swelling. - Respiratory Respiratory status: No respiratory distress Chest status: Nontender Breath sounds: Normal Chest palpation: Normal - Cardiovascular Rhythm: Regular Heart sounds: Normal auscultation Murmur: No - Abdominal Inspection: Normal Distension: No distension Bowel sounds: Normal Tenderness: Nontender Organomegaly: No organomegaly - Neurological Neuro grossly intact: Yes Cognition: Normal Orientation: AAOx4 - There is no motor, sensory or cerebellar deficits. Nonfocal neurologic exam. GCS is 15. [place] Coma Scale Eye Opening: Spontaneous Valentín Coma Scale Verbal: Oriented Valentín Coma Scale Motor: Obeys Commands [place] Coma Scale Total: 15 Speech: Normal Motor strength normal: LUE, RUE, LLE, RLE Sensory: Normal Course - Vital Signs Vital signs: Temp Pulse Resp BP Pulse Ox 98.0 F 104 H 17 182/110 H 100 12/03/18 12:00 12/03/18 12:00 12/03/18 12:37 12/03/18 12:00 12/03/18 12:37 - Laboratory Result Diagrams: 12/03/18 12:42 12/03/18 12:42 Laboratory results interpreted by me: 12/03/18 12/03/18 12:42 12:42 WBC 11.0 H Absolute Neuts (auto) 8.9 H Seg Neutrophils % 80.4 H Glucose 170 H Total Protein 8.4 H Discharge - Discharge Clinical Impression: Dental caries Dental injury Qualifiers: Encounter type: initial encounter Qualified Code(s): S09.93XA - Unspecified injury of face, initial encounter Headache Qualifiers: Headache type: unspecified Headache chronicity pattern: acute headache Intractability: not intractable Qualified Code(s): R51 - Headache Condition: Good Disposition: HOME, SELF-CARE Instructions: Dental Infection or Abscess ([facility]), Dental Injury ([facility]), Headache ([facility]) Prescriptions: Tramadol HCl [Ultram 50 mg Tablet] 50 mg PO Q6HP PRN #20 tablet PRN Reason: Pain Scale Of 3 Penicillin V Potassium [Penicillin Vk 500 mg Tablet] 500 mg PO QID #40 tablet Referrals: TERELL SHIN MD [ACTIVE STAFF] - Follow up as needed [facility] [Provider Group] - Follow up as needed
[2018-12-03 15:26] VITALS: BP 144/88
== END 2018-12-03 15:44 | disposition home or self-care (01) ==
LOC: ER 11:51
DX: S02.5XXA Fracture of tooth (traumatic), initial encounter for closed fracture (principal); X58.XXXA Exposure to other specified factors, initial encounter; K02.9 Dental caries, unspecified; K08.89 Other specified disorders of teeth and supporting structures; R51 Headache; I10 Essential (primary) hypertension; E11.9 Type 2 diabetes mellitus without complications; J45.909 Unspecified asthma, uncomplicated; Z88.8 Allergy status to other drugs, medicaments and biological substances
CPT/HCPCS: 99283; 96374; 36415; 82553; 82550; 85025; 85610; 85730; 80053; 84484; 70450; J2270

== ENCOUNTER 2018-12-28 08:22 | Emergency (ER) | payer MEDICARE ==
[2018-12-28] MEDS ORDERED: BENZONATATE 100 MG CAPSULE PO ONE (09:21)
[2018-12-28] MEDS ORDERED: IPRATROPIUM/ALBUTEROL 0.5-2.5 MG/3 ML AMPUL NEB ONE ×2 (09:21→10:40)
[2018-12-28] MEDS ORDERED: PREDNISONE 20 MG TABLET PO ONE (09:21)
--- NOTE | 2018-12-28 10:11 | RADIOLOGY REPORT (SQ) ---
EXAM DESCRIPTION: CHEST 2 VIEWS COMPLETED DATE/TIME: 12/28/2018 10:03 am REASON FOR STUDY: cough x 6 days, fever COMPARISON: 07/16/2018 EXAM PARAMETERS: NUMBER OF VIEWS: two views TECHNIQUE: Digital Frontal and Lateral radiographic views of the chest acquired. RADIATION DOSE: NA LIMITATIONS: none FINDINGS: LUNGS AND PLEURA: No opacities, masses or pneumothorax. No pleural effusion. MEDIASTINUM AND HILAR STRUCTURES: No masses or contour abnormalities. HEART AND VASCULAR STRUCTURES: Heart normal size. No evidence for failure. BONES: No acute findings. HARDWARE: None in the chest. OTHER: No other significant finding. IMPRESSION: NO ACUTE RADIOGRAPHIC FINDING IN THE CHEST. TECHNICAL DOCUMENTATION: JOB ID: [id number] [employer]- All Rights Reserved Reading location - IP/workstation name: [email or web address]
[2018-12-28 10:40] VITALS: BP 131/63
--- NOTE | 2018-12-28 10:48 | ER Document Report ---
HPI - HPI Time Seen by Provider: 12/28/18 09:16 Pain Level: 2 Context: Patient is a 63-year-old female with a history of hypertension, acid reflux, diabetes who presents to the emergency department with a chief complaint of cough. Patient reports 6 days ago she developed a continuous productive cough. Patient reports his sputum is clear. Patient reports she has vomited a few times due to the production of excessive sputum. Patient states she does not smoke. Patient reports on Saturday she did have a temperature of 102 but since then she is only had low-grade temperatures at night. Patient reports she does have an albuterol nebulizer at home that she is needed frequently due to the wheezing. Patient reports intermittent runny nose and congestion. Patient reports sore throat without ear pain. Patient denies diarrhea. Patient reports she does see a senior case manager, Dr. Levi for pulmonary nodules. Patient reports she does have chronic bronchitis. - CONSTITUTIONAL Constitutional: REPORTS: Fever - EENT EENT: REPORTS: Sore Throat - RESPIRATORY Respiratory: REPORTS: Trouble Breathing, Coughing - REPRODUCTIVE Reproductive: DENIES: : Past Medical History - General Information source: Patient - Social History Smoking Status: Never Smoker Frequency of alcohol use: None Drug Abuse: None Family History: Reviewed & Not Pertinent, CAD, DM, Hyperlipidemia, Hypertension, Malignancy, Thyroid Disfunction Patient has suicidal ideation: No Patient has homicidal ideation: No - Past Medical History Cardiac Medical History: Reports: Hx Hypercholesterolemia, Hx Hypertension Denies: Hx Heart Attack Pulmonary Medical History: Reports: Hx Asthma - pt states she doesnt have, Hx Bronchitis, Hx Pneumonia Denies: Hx COPD, Hx Tuberculosis EENT Medical History: Reports: None Neurological Medical History: Reports: None. Denies: Hx Seizures, Hx Parkinson's Disease Endocrine Medical History: Reports: Hx Diabetes Mellitus Type 2 Renal/ Medical History: Reports: None. Denies: Hx Peritoneal Dialysis Malignancy Medical History: Reports: None GI Medical History: Reports: Hx Gastroesophageal Reflux Disease Musculoskeletal Medical History: Reports Hx Arthritis, Reports Hx Musculoskeletal Deformity Skin Medical History: Reports None Psychiatric Medical History: Reports: None Traumatic Medical History: Reports: None Infectious Medical History: Reports: None Past Surgical History: Reports: Hx Section, Hx Cholecystectomy, Hx Orthopedic Surgery - Carpal tunnel cyst right hand. Denies: Hx Hysterectomy - Immunizations Immunizations up to date: Yes Hx Diphtheria, Pertussis, Tetanus Vaccination: Yes Hx Pneumococcal Vaccination: 12/02/13 Vertical Provider Document - CONSTITUTIONAL Agree With Documented VS: Yes Exam Limitations: No Limitations General Appearance: No Apparent Distress - INFECTION CONTROL TRAVEL OUTSIDE OF THE [place] IN LAST 30 DAYS: No - HEENT HEENT: Atraumatic, Normocephalic, PERRLA - RESPIRATORY Notes: Expiratory wheezing noted in bilateral lower lobes with scattered rhonchi. Intermittent congested cough. - CARDIOVASCULAR Cardiovascular: Regular Rate, Regular Rhythm - GI/ABDOMEN Gastrointestinal: Abdomen Soft, Abdomen Non-Tender, Normal Bowel Sounds - NEURO Level of Consciousness: Awake, Alert, Appropriate - DERM Integumentary: Warm, Dry Course - Re-evaluation Re-evalutation: 12/28/18 10:59 Patient reports feeling some relief after the first DuoNeb. Patient does still have expiratory wheeze although not as prominent. Will give another DuoNeb. We will place the patient on oral steroids as well as doxycycline due to the acute exacerbation of chronic bronchitis. I did inform the patient that the steroids can increase her blood sugars and that she needs to watch them carefully. Patient instructed to follow-up with her senior case manager Dr. Levi tomorrow and her primary care physician. Patient given strict return precautions. 12/28/18 11:20 Patient reports feeling better after second DuoNeb. Patient was stable for discharge and nontoxic-appearing. - Vital Signs Vital signs: Temp Pulse Resp BP Pulse Ox 97.5 F 77 24 H 131/63 H 96 12/28/18 10:39 12/28/18 10:39 12/28/18 10:39 12/28/18 10:39 12/28/18 10:39 - Diagnostic Test Radiology reviewed: Reports reviewed Radiology results interpreted by me: 12/28/18 11:00 Chest X-Ray 12/28/18 09:21 IMPRESSION: NO ACUTE RADIOGRAPHIC FINDING IN THE CHEST. Discharge - Discharge Clinical Impression: Acute bronchitis and bronchiolitis Condition: Stable Disposition: HOME, SELF-CARE Additional Instructions: Today you are seen in emergency department for cough. Your chest x-ray was negative for pneumonia. We have given you multiple albuterol nebulizer treatments which did seem to help with your wheezing. I am placing you on oral antibiotic called doxycycline. Please limit sun exposure while on this medication as it can cause sun burn. I would call your senior case manager tomorrow to have a follow-up visit. Please take Tylenol as needed for pain or fever. Please return to the emergency department if you develop extreme shortness of breath, fever, bloody sputum or chest pain. You are being placed on prednisone. Prednisone is a steroid. This does have the ability to increase her blood sugars. Since you are diabetic please monitor your sugars closely. You do need to follow-up with your primary care physician this week. BRONCHITIS: You have acute bronchitis. This disease is an infection or inflammation of the air passageways in your lungs. Symptoms usually include cough, low grade fever, shortness of breath, and wheezing. The cough usually persists for a couple of weeks. Most cases of bronchitis get better without antibiotics. We prescribe antibiotics when we believe bacteria are damaging your airways, or if there's high risk the bronchitis will worsen into pneumonia. Increase your fluid intake. A cool mist humidifier may make your lungs more comfortable. An expectorant (cough medicine that loosens phlegm) can help. If you smoke, STOP!!! Recovery from bronchitis can be somewhat slow, but you clive uld see improvement within a day or two. Repeated episodes of bronchitis may result in lung damage -- for example, chronic bronchitis, recurrent pneumonias, or emphysema. Call the doctor if you develop increasing fever, shortness of breath, chest pain, bloody sputum, or otherwise worsen. If you have not improved at all after several days, contact the physician. BRONCHITIS WITH BRONCHOSPASM (WHEEZING): You have bronchitis with bronchospasm (wheezing). Sometimes people develop wheezing with a chest cold. This occurs either because of an underlying tendency toward asthma or because the virus itself irritates the bronchial tubes. This irritation causes cough, shortness of breath, and wheezing. Emergency treatment of bronchospasm may include adrenaline shots or bronc hodilator aerosol. You may feel lightheaded and have a rapid pulse for an hour or two. Rest and get plenty of fluids. At home, we'll treat you with a bronchodilator inhaler. Corticosteroids may be required for some patients. Until you recover, avoid chemical fumes, dusts, pollens, and exercising in very cold or dry air. If you smoke, stop now! Most cases of bronchitis get better without antibiotics. We prescribe antibiotics when we believe bacteria are damaging your airways, or if there's high risk the bronchitis will worsen into pneumonia. Increase your fluid intake. A cool mist humidifier may make your lungs more comfortable. An expectorant (cough medicine that loosens phlegm) can help. Repeated episodes of bronchitis and bronchospasm may result in lung damage -- for example, chronic bronchitis, recurrent pneumonias, or emphysema. If you develop a fever, increased wheezing, chest pain, or severe shortness of breath, you should contact the doctor immediately. INHALED BRONCHODILATORS: You have received a treatment of and/or prescription for an inhaled bronchodilator -- a medication which stimulates the airways in the lung to dilate. This improves the flow of air in asthma, bronchitis, and emphysema. These medicines have some similarity to adrenaline, and can cause similar side effects: shakiness, racing heart, and a sense of nervousness. These side effects decrease with time. Contact your doctor if these side effects are severe. Do not over-use the medicine. Too-frequent use of the inhaler may make it ineffective. Call your doctor if the inhaler is not controlling your symptoms at the prescribed doses. STEROID MEDICATION: You have been given an injection of or oral medicine of the cortisone/steroid class. This medication is used to control inflammation or allergy. Rodriguez t is usually only given for a short period of time, until the acute process subsides. There are usually no side effects from short-term use of cortisone-like medications. Some persons feel an increased sense of well-being and are not sleepy at bedtime. Long-term use of cortisone medications is best avoided, unless required for a severe condition. If your condition does not remit, or relapses after the course of corticosteroid medication, you should consult your physician. ANTIBIOTIC THERAPY: You have been given an antibiotic prescription. It's important that you take all the medication, unless instructed otherwise by your physician. Failure to complete the entire course can result in relapse of your condition. Common side effects of antibiotics include nausea, intestinal cramping, or diarrhea. Women may develop vaginal yeast infections, and babies can get yeast (thrush) in the mouth following the use of antibiotics. Contact your physician if you develop significant side effects from this medication. Allergy to this antibiotic can result in hives, wheezing, faintness, or itching. If symptoms of allergy occur, stop the medication and call your doctor. DOXYCYCLINE: Doxycycline (Vibramycin, Doryx) is an antibiotic of the tetracycline family. This type of drug is useful for infections of the respiratory tract and genital tract, and is sometimes used for intestinal infections. Unlike most tetracyclines, doxycycline can be taken with food. It is longer acting, and (usually) less prone to side effects than regular tetracycline. Tetracycline antibiotics can stain immature teeth and SHOULD NOT BE TAKEN BY CHILDREN, NURSING MOTHERS, OR WOMEN. Tetracyclines can make you more prone to sunburn. Abdominal cramping, nausea, and diarrhea are occasional side effects. Women may experience vaginal yeast infections. Call the doctor at once if you develop hives, itching, shortness of breath, or lightheadedness. USE OF ACETAMINOPHEN (Tylenol): Acetaminophen may be taken for pain relief or fever control. It's much safer than aspirin, offering a wider range of "safe" dosages. It is safe during . Some brand names are Tylenol, Panadol, Datril, Anacin 3, Tempra, and Liquiprin. Acetaminophen can be repeated every four hours. The following are maximum recommended dosages: >89 pounds or adults 650 mg to 900 mg Acetaminophen can be repeated every four hours. Maximum dose not to exceed 4000 mg a day. SMOKING: If you smoke, you should stop smoking. The tar and chemicals in cigarette smoke are harmful. Smoking has been shown to cause: emphysema chronic bronchitis lung cancer mouth and throat cancer stomach and pancreas cancer premature aging defects In addition, smoking increases ear and lung infections in children of smokers. FOLLOW-UP CARE: If you have been referred to a physician for follow-up care, call the physicians office for an appointment as you were instructed or within the next two days. If you experience worsening or a significant change in your symptoms, notify the physician immediately or return to the Emergency Department at any time for re-evaluation. Prescriptions: Benzonatate [Tessalon Perles 100 mg Capsule] 100 mg PO Q8HP PRN #21 capsule PRN Reason: Prednisone [Deltasone 10 mg Tablet] 10 mg PO ASDIR PRN #21 tablet PRN Reason: Doxycycline Hyclate 100 mg PO BID #10 capsule Referrals: JOVITA UP MD [Primary Care Provider] - Follow up as needed
== END 2018-12-28 11:01 | disposition home or self-care (01) ==
LOC: ER 08:22
DX: J21.9 Acute bronchiolitis, unspecified (principal); I10 Essential (primary) hypertension; K21.9 Gastro-esophageal reflux disease without esophagitis; E11.9 Type 2 diabetes mellitus without complications
CPT/HCPCS: 71046; A9270 ×3; 94640; 99283; J7512; J7620

== ENCOUNTER → 2019-01-21 | Outpatient (CLI) | payer MEDICARE, OTHER ==
--- NOTE | 2019-01-21 15:59 | RADIOLOGY REPORT (SQ) ---
EXAM DESCRIPTION: CT CHEST WITHOUT COMPLETED DATE/TIME: 01/21/2019 12:38 pm REASON FOR STUDY: R91.8 OTHER NONSPECIFIC ABNORMAL FINDING OF LUNG FIELD R91.8 OTHER NONSPECIFIC AB NORMAL FINDING OF LUNG FIELD COMPARISON: CT chest 10/21/2018, 04/19/2016 CT abdomen pelvis 10/10/2015 TECHNIQUE: CT scan performed of the chest without intravenous contrast. Images reviewed with lung, soft tissue and bone windows. Reconstructed coronal and sagittal MPR images reviewed. All images st ored on PACS. All CT scanners at this facility use dose modulation, iterative reconstruction, and/or weight based d osing when appropriate to reduce radiation dose to as low as reasonably achievable (ALARA). [facility]: Dose Right [facility]: CareDose [facility]: Dose Right [facility]: Teradose 4D [facility]: [facility] [employer] RADIATION DOSE: CT Rad equipment meets quality standard of care and radiation dose reduction techniq ues were employed. CTDIvol: 18.8 mGy. DLP: 721 mGy-cm. mGy. LIMITATIONS: No technical limitations. FINDINGS: LUNGS AND PLEURA: A 5 to 6 mm smooth round noncalcified nodule is present in the periphery of the left lower lobe on axial image 69/103. This is unchanged from studies dating back to CT abdo men pelvis 10/10/2015, is a benign finding the requires no further follow-up. There are other tiny less than 3 mm calcified and noncalcified granulomas at both lung bases, benign. These require no further specific follow up. There is minimal bandlike scarring in the lateral aspect of the right minor fissure on axial image 49 of doubtful clinical significance. HILAR AND MEDIASTINAL STRUCTURES: No identified masses or abnormal nodes. No obvious aneurysm. HEART AND VASCULAR STRUCTURES: No aneurysm. No pericardial effusion. UPPER ABDOMEN: Clips right upper quadrant post cholecystectomy THYROID AND OTHER SOFT TISSUES: 2.4 cm cyst versus nodule left lower pole thyroid for which ultrasoun d is recommended for followup. No adenopathy. BONES: No significant finding. HARDWARE: None in the chest. OTHER: No other significant findings. IMPRESSION: Benign postinflammatory subcentimeter lung nodules as above TECHNICAL DOCUMENTATION: JOB ID: [id number] Quality ID # [id number]: Final reports with documentation of one or more dose reduction techniques (e.g., Au tomated exposure control, adjustment of the mA and/or kV according to patient size, use of iterative reconstruction technique) 2010 [employer]- All Rights Reserved Reading location - IP/workstation name: [email or web address]
== END ==
LOC: RAD 12:06
PROVIDERS: ATTEND Registered Nurse
DX: R91.8 Other nonspecific abnormal finding of lung field (principal)
CPT/HCPCS: 71250

== ENCOUNTER → 2019-02-13 | Outpatient (CLI) | payer MEDICARE, OTHER ==
[2019-02-13 12:13] LABS: ANION GAP 12 (5-19); BLOOD UREA NITROGEN 19 mg/dL (7-20); CALCIUM 9.6 mg/dL (8.4-10.2); CARBON DIOXIDE 28 mmol/L (22-30); CHLORIDE 102 mmol/L (98-107); GLUCOSE 119 mg/dL (75-110); POTASSIUM 4.5 mmol/L (3.6-5.0)
[2019-02-14 12:36] LABS: CREATININE URINE 15.7 mg/dL (Not Estab.)
[2019-02-16 07:23] LABS: MICROALBUMIN URINE <3.0 ug/mL (Not Estab.)
== END ==
LOC: OD 11:15
PROVIDERS: ATTEND Family Medicine
DX: E11.65 Type 2 diabetes mellitus with hyperglycemia (principal); E78.5 Hyperlipidemia, unspecified; Z79.899 Other long term (current) drug therapy
CPT/HCPCS: 36415; 80048; 82043; 82570; 83036; 84443

== ENCOUNTER → 2019-02-13 | Outpatient (CLI) | payer MEDICARE, OTHER ==
--- NOTE | 2019-02-13 14:26 | WOMENS IMAGING REPORT ---
EXAM DESCRIPTION: BILAT SCREENING MAMMO W/CAD COMPLETED DATE/TIME: 02/13/2019 10:49 am REASON FOR STUDY: Z12.31 SCREENING MAMMO Z12.31 ENCNTR SCREEN MAMMOGRAM FOR MALIGNANT NEOPLASM OF B RE COMPARISON: 2012 to 2017 EXAM PARAMETERS: Standard craniocaudal and mediolateral oblique views of each breast recorded using digital acquisition. Read with the assistance of CAD. .[facility] - m2fx Dent Remover Version 9.2 LIMITATIONS: None. FINDINGS: No suspicious masses, suspicious calcifications or architectural distortion. No areas of c oncern. IMPRESSION: Negative MAMMOGRAM. BIRADS 1 BREAST DENSITY: b. There are scattered areas of fibroglandular density. BIRAD: ASSESSMENT: 1 NEGATIVE RECOMMENDATION: ROUTINE SCREENING COMMENT: The patient has been notified of the results by letter per SA requirements. Additional no tification policies are in place for contacting patient with suspicious or incomplete findings. Quality ID #[id number]: The [employer] recommends an annual screening mammogram for women aged 40 years or over. This facility utilizes a reminder system to ensure that all patients receive reminder letters, and/or direct phone calls for appointments. This includes reminders for routine scr eening mammograms, diagnostic mammograms, or other Breast Imaging Interventions when appropriate. Th is patient will be placed in the appropriate reminder system. TECHNICAL DOCUMENTATION: FINDING NUMBER: (1) ASSESSMENT: (1) JOB ID: [id number] [employer]- All Rights Reserved Reading location - IP/workstation name: [email or web address]
== END ==
LOC: WI 10:05
PROVIDERS: ATTEND Family Medicine
DX: Z12.31 Encounter for screening mammogram for malignant neoplasm of breast (principal)
CPT/HCPCS: 77067

== ENCOUNTER → 2019-04-03 | Outpatient (CLI) | payer MEDICARE, OTHER ==
--- NOTE | 2019-04-03 16:52 | WOMENS IMAGING REPORT ---
EXAM DESCRIPTION: U/S THYROID/ST TIS HEAD NECK COMPLETED DATE/TIME: 04/03/2019 11:12 am REASON FOR STUDY: E03.9 HYPOTHYROIDISM, UNSPECIFIED E04.1 NONTOXIC SINGLE THYROID NODULE E03.9 HYPO THYROIDISM, UNSPECIFIED E04.1 NONTOXIC SINGLE THYROID NODULE COMPARISON: CT chest 01/21/2019 TECHNIQUE: Dynamic and static jones-scale images acquired of the thyroid gland. Selected additional c olor/power Doppler images recorded. All images stored to PACS. LIMITATIONS: None. FINDINGS: RIGHT LOBE: New right lobe thyroid is 4.7 x 2 x 1.7 cm in size. Homogeneous echotexture. No significant cystic or solid masses. LEFT LOBE: Normal size, 4.4 x 2.4 x 2.4 cm. Homogeneous echotexture. 2.8 x 2 cm mass in the lower p ole left lobe thyroid, TI-RADS 4 (solid, hypoechoic, wider than tall, well-circumscribed, no echogeni c foci). ISTHMUS: Normal thickness. Homogeneous echotexture. No cystic or solid masses. OTHER: No other significant finding. IMPRESSION: 2.8 x 2 cm mass left lower pole thyroid, TI-RADS 4 lesion COMMENT: The [employer] ([employer]) Thyroid Imaging Reporting And Data System (TI-RADS ) is an ultrasound feature based summed scoring system of risk categorization and management recommen dations for thyroid nodules. TI-RADS assessment categories are as follows: 0 - Incomplete exam: Additional imaging or comparison to prior examinations recommended. 1. - Benign: Fine-needle aspiration or follow-up not routinely recommended in the absence of clinical change. 2. - Not suspicious: Fine-needle aspiration or follow-up not routinely recommended in the absence of clinical change. 3. - Mildly suspicious: Fine-needle aspiration recommended if greater than or equal to 2.5 cm in size . Ultrasound follow-up recommended if greater than or equal to 1.5 cm in size. 4. - Moderately suspicious: Fine-needle aspiration recommended if greater than or equal to 1.5 cm in size. Ultrasound follow-up recommended if greater than or equal to 1.0 cm in size. 5. - Highly suspicious: Fine-needle aspiration recommended if greater than or equal to 1.0 cm in size . Ultrasound follow-up recommended if greater than or equal to 0.5 cm in size. TECHNICAL DOCUMENTATION: JOB ID: [id number] [employer]- All Rights Reserved Reading location - IP/workstation name: [email or web address]
== END ==
LOC: WI 10:32
PROVIDERS: ATTEND Family Medicine
DX: E04.1 Nontoxic single thyroid nodule (principal); E03.9 Hypothyroidism, unspecified
CPT/HCPCS: 76536

== ENCOUNTER → 2019-04-09 | Outpatient (CLI) | payer MEDICARE, OTHER ==
[2019-04-09 17:36] LABS: FREE T3 3.32 pg/mL (2.77-5.27); FREE T4 (FREE THYROXINE) 0.79 ng/dL (0.78-2.19)
[2019-04-09 17:50] LABS: THYROID STIMULATING HORMONE 2.41 uIU/mL (0.47-4.68)
== END ==
LOC: OD 15:39
PROVIDERS: ATTEND Surgery
DX: E04.1 Nontoxic single thyroid nodule (principal)
CPT/HCPCS: 36415; 84439; 84443; 84481

== ENCOUNTER 2019-04-12 07:39 | Emergency (ER) | payer MEDICARE, OTHER ==
--- NOTE | 2019-04-12 08:22 | ER Document Report ---
HPI - HPI Time Seen by Provider: 04/12/19 08:08 Pain Level: 2 Context: Patient is a 64-year-old female with a history of hypertension, acid reflux and diabetes who presents the emergency department with a chief complaint of cough. Patient reports 2 days ago she developed a scratchy throat and dry cough. Patient reports she is concerned that she was surrounded by multiple contacts at [employer] who were recently diagnosed with the flu. Patient reports she did receive the influenza vaccine in December. Patient reports nasal congestion. Patient reports she does have an albuterol nebulizer at home when which she uses as needed. Patient reports she wheezes at night, and did have to use the nebulizer machine prior to bed. Patient reports after 1 neb her wheezing and improved. Patient denies fever. Patient reports she is doing using cough drops. Patient also reports that she is currently being worked up for thyroid issues and does follow a surgeon for this. Patient denies difficulty breathing or swallowing. Denies N/V/D. - REPRODUCTIVE Reproductive: DENIES: : Past Medical History - General Information source: Patient - Social History Smoking Status: Never Smoker Frequency of alcohol use: None Drug Abuse: None Lives with: Family Family History: Reviewed & Not Pertinent, CAD, DM, Hyperlipidemia, Hypertension, Malignancy, Thyroid Disfunction Patient has suicidal ideation: No Patient has homicidal ideation: No - Past Medical History Cardiac Medical History: Reports: Hx Hypercholesterolemia, Hx Hypertension Denies: Hx Heart Attack Pulmonary Medical History: Reports: Hx Asthma - pt states she doesnt have, Hx Bronchitis, Hx Pneumonia Denies: Hx COPD, Hx Tuberculosis EENT Medical History: Reports: None Neurological Medical History: Reports: None. Denies: Hx Seizures, Hx Parkinson's Disease Endocrine Medical History: Reports: Hx Diabetes Mellitus Type 2 Renal/ Medical History: Reports: None. Denies: Hx Peritoneal Dialysis Malignancy Medical History: Reports: None GI Medical History: Reports: Hx Gastroesophageal Reflux Disease Musculoskeletal Medical History: Reports Hx Arthritis, Reports Hx Musc uloskeletal Deformity Skin Medical History: Reports None Psychiatric Medical History: Reports: None Traumatic Medical History: Reports: None Infectious Medical History: Reports: None Past Surgical History: Reports: Hx Section, Hx Cholecystectomy, Hx Orthopedic Surgery - Carpal tunnel cyst right hand. Denies: Hx Hysterectomy - Immunizations Immunizations up to date: Yes Hx Diphtheria, Pertussis, Tetanus Vaccination: Yes Hx Pneumococcal Vaccination: 12/02/13 Vertical Provider Document - CONSTITUTIONAL Agree With Documented VS: Yes Exam Limitations: No Limitations General Appearance: No Apparent Distress Notes: GENERAL: Well-appearing, well-nourished and in no acute distress. HEAD: Atraumatic, normocephalic. No sinus tenderness with palpation. EYES: Pupils equal round and reactive to light, extraocular movements intact, sclera anicteric, conjunctiva are normal. ENT: TMs normal, nares patent, oropharynx clear without exudates. Moist mucous membranes. NECK: Normal range of motion, supple without lymphadenopathy or JVD. LUNGS: Breath sounds clear to auscultation bilaterally and equal. No wheezes rales or rhonchi. HEART: Regular rate and rhythm without murmurs, rubs or gallops. ABDOMEN: Soft, nontender, normoactive bowel sounds. No guarding, no rebound. No masses appreciated. BACK: No cervical, thoracic, lumbar midline tenderness. No saddle anesthesia, normal distal neurovascular exam. GENITOURINARY: Deferred. EXTREMITIES: Normal range of motion, no pitting or edema. No clubbing or cyanosis. NEUROLOGICAL: Cranial nerves II through XII grossly intact. Normal speech, normal gait. PSYCH: Normal mood, normal affect. SKIN: Warm, Dry, normal turgor, no rashes or lesions noted. - INFECTION CONTROL TRAVEL OUTSIDE OF THE [place] IN LAST 30 DAYS: No Course - Re-evaluation Re-evalutation: 04/12/19 08:21 Patient had already obtained a chest x-ray that was initiated in triage. Results pending. Patient concerned that she may have influenza as she was surrounded by multiple sick contacts at [employer]. Will test for influenza. Patient reports she did receive the influenza vaccine at [facility] in December 2018. Patient denies fever. Patient currently has no respiratory distress or wheezing. We will continue to monitor. 04/12/19 09:21 Patient's x-ray is negative. Influenza testing pending. Patient no acute distress. 04/12/19 09:37 Patient's influenza testing was negative. Did discuss the results with the patient. Patient resting comfortably. I did reevaluate the patient's lung sounds which remained clear to auscultation throughout. Patient no acute distress. Stable for discharge at this time. - Vital Signs Vital signs: Temp Pulse Resp BP Pulse Ox 97.9 F 89 18 160/80 H 96 04/12/19 07:43 04/12/19 07:43 04/12/19 07:43 04/12/19 07:43 04/12/19 07:43 - Laboratory Laboratory results interpreted by me: 04/12/19 09:37 Laboratory 04/12/19 08:47 Influenza A (Rapid) NEGATIVE Influenza B (Rapid) NEGATIVE - Diagnostic Test Radiology reviewed: Reports reviewed Radiology results interpreted by me: 04/12/19 08:44 Chest X-Ray 04/12/19 07:43 IMPRESSION: NO ACUTE RADIOGRAPHIC FINDING IN THE CHEST. Discharge - Discharge Clinical Impression: Cough Condition: Stable Disposition: HOME, SELF-CARE Additional Instructions: *Today was in the emergency department for cough. Your chest x-ray is negative for any acute abnormality such as pneumonia. Your influenza testing was negative. Please take Tylenol or as needed for your headache, and body aches. Please follow-up with your primary care physician. Please use your home nebulizer machine as needed for wheezing. Here in the emergency department you do not require any nebulizer treatment is there was no wheezing present. UPPER RESPIRATORY ILLNESS: You have a viral infection of the respiratory passages -- a "cold." This common infection causes nasal congestion, drainage, and often sore throat and cough. It is highly contagious. The disease usually lasts about 10 to 14 days. There is no "cure" for the viral infection -- it must run its course. If there is a complication, such as bacterial infection in the nose, sinuses, middle ear, or bronchial tubes, antibiotics may be required. The antibiotics won't affect the virus. Drink plenty of fluids. A humidifier may help. An expectorant medication or decongestant may make you more comfortable. Use acetaminophen or ibuprofen for fever or aches. See the doctor if fever persists over two days, if there is any significant worsening of your symptoms, or if you simply fail to improve as expected. USE OF ACETAMINOPHEN (Tylenol): Acetaminophen may be taken for pain relief or fever control. It's much safer than aspirin, offering a wider range of "safe" dosages. It is safe during . Some brand names are Tylenol, Panadol, Datril, Anacin 3, Tempra, and Liquiprin. Acetaminophen can be repeated every four hours. The following are maximum recommended dosages: >89 pounds or adults 650 mg to 900 mg Acetaminophen can be repeated every four hours. Maximum dose not to exceed 4000 mg a day. SMOKING: If you smoke, you should stop smoking. The tar and chemicals in cigarette smoke are harmful. Smoking has been shown to cause: emphysema chronic bronchitis lung cancer mouth and throat cancer stomach and pancreas cancer premature aging defects In addition, smoking increases ear and lung infections in children of smokers. FOLLOW-UP CARE: If you have been referred to a physician for follow-up care, call the physicians office for an appointment as you were instructed or within the next two days. If you experience worsening or a significant change in your symptoms, notify the physician immediately or return to the Emergency Department at any time for re-evaluation. Referrals: ELLIOTT BATISTA MD [Primary Care Provider] - Follow up as needed
--- NOTE | 2019-04-12 08:35 | RADIOLOGY REPORT (SQ) ---
EXAM DESCRIPTION: CHEST 2 VIEWS COMPLETED DATE/TIME: 04/12/2019 8:06 am REASON FOR STUDY: cough COMPARISON: None. EXAM PARAMETERS: NUMBER OF VIEWS: two views TECHNIQUE: Digital Frontal and Lateral radiographic views of the chest acquired. RADIATION DOSE: NA LIMITATIONS: none FINDINGS: LUNGS AND PLEURA: No opacities, masses or pneumothorax. No pleural effusion. MEDIASTINUM AND HILAR STRUCTURES: No masses or contour abnormalities. HEART AND VASCULAR STRUCTURES: Heart normal size. No evidence for failure. BONES: No acute findings. HARDWARE: None in the chest. OTHER: No other significant finding. IMPRESSION: NO ACUTE RADIOGRAPHIC FINDING IN THE CHEST. TECHNICAL DOCUMENTATION: JOB ID: [id number] [employer]- All Rights Reserved Reading location - IP/workstation name: [email or web address]
[2019-04-12 09:35] LABS: A TYPE INFLUENZA AG NEGATIVE (NEGATIVE); B INFLUENZA AG NEGATIVE (NEGATIVE)
[2019-04-12 10:19] VITALS: BP 126/69
== END 2019-04-12 10:19 | disposition home or self-care (01) ==
LOC: ER 07:39
DX: R05 Cough (principal); R09.81 Nasal congestion; I10 Essential (primary) hypertension; E11.9 Type 2 diabetes mellitus without complications; Z20.828 Contact with and (suspected) exposure to other viral communicable diseases; Z87.01 Personal history of pneumonia (recurrent)
CPT/HCPCS: 71046; 87804; 99283

== ENCOUNTER 2019-04-18 11:03 | Emergency (ER) | payer MEDICARE, OTHER ==
--- NOTE | 2019-04-18 11:34 | ER Document Report ---
ED Medical Screen (RME) - General Chief Complaint: Vomiting Stated Complaint: VOMITING,COUGH Time Seen by Provider: 04/18/19 11:31 Primary Care Provider: JOVITA UP MD [Primary Care Provider] - Follow up as needed Notes: 64 y/o female presents with worsening cough and vomiting. States seen on Saturday and "diagnosed with virus." States she is coughing to the point where she is "vomiting up phlegm." Review of records reveal neg CXR and neg flu test on 04/12. Pt states she has been taking OTC cough syrup with little relief and states she has "been using nebulizer treatments." Denies history of COPD or asthma. Lungs clear to auscultation bilaterally. RRR. I have greeted and performed a rapid initial assessment of this patient. A comprehensive ED assessment and evaluation of the patient, analysis of test resu lts and completion of the medical decision making process with be conducted by additional ED providers. TRAVEL OUTSIDE OF THE [place] IN LAST 30 DAYS: No - Related Data Allergies/Adverse Reactions: naproxen [From Aleve] Allergy (Verified 12/28/18 08:45) diphenhydramine HCl [From Benadryl] Adverse Reaction (Mild, Verified 12/28/18 0 8:45) makes me feel funny Past Medical History - Social History Family history: Reviewed & Not Pertinent - Past Medical History Cardiac Medical History: Reports: Hx Hypercholesterolemia, Hx Hypertension Denies: Hx Heart Attack Pulmonary Medical History: Reports: Hx Asthma - pt states she doesnt have, Hx Bronchitis, Hx Pneumonia Denies: Hx COPD, Hx Tuberculosis Neurological Medical History: Denies: Hx Seizures, Hx Parkinson's Disease Endocrine Medical History: Reports: Hx Diabetes Mellitus Type 2 Renal/ Medical History: Denies: Hx Peritoneal Dialysis GI Medical History: Reports: Hx Gastroesophageal Reflux Disease Musculoskeltal Medical History: Reports Hx Arthritis, Reports Hx Musculoskeletal Deformity Past Surgical History: Reports: Hx Section, Hx Cholecystectomy, Hx Orthopedic Surgery - Carpal tunnel cyst right hand. Denies: Hx Hysterectomy - Immunizations Immunizations up to date: Yes Hx Diphtheria, Pertussis, Tetanus Vaccination: Yes Physical Exam - Vital signs Vitals: Temp Pulse Resp BP Pulse Ox 97.7 F 84 16 156/83 H 96 04/18/19 11:15 04/18/19 11:15 04/18/19 11:15 04/18/19 11:15 04/18/19 11:15 Course - Vital Signs Vital signs: Temp Pulse Resp BP Pulse Ox 97.7 F 84 16 156/83 H 96 04/18/19 11:15 04/18/19 11:15 04/18/19 11:15 04/18/19 11:15 04/18/19 11:15 Doctor's Discharge - Discharge Referrals: JOVITA UP MD [Primary Care Provider] - Follow up as needed
[2019-04-18] MEDS ORDERED: ONDANSETRON 4 MG TAB.RAPDIS PO ONE (11:40)
[2019-04-18] MEDS ORDERED: BENZONATATE 100 MG CAPSULE PO ONE (11:41)
--- NOTE | 2019-04-18 12:08 | RADIOLOGY REPORT (SQ) ---
EXAM DESCRIPTION: CHEST 2 VIEWS COMPLETED DATE/TIME: 04/18/2019 11:57 am REASON FOR STUDY: worsening cough COMPARISON: 04/12/2019. EXAM PARAMETERS: NUMBER OF VIEWS: two views TECHNIQUE: Digital Frontal and Lateral radiographic views of the chest acquired. RADIATION DOSE: NA LIMITATIONS: none FINDINGS: LUNGS AND PLEURA: No opacities, masses or pneumothorax. No pleural effusion. MEDIASTINUM AND HILAR STRUCTURES: No masses or contour abnormalities. HEART AND VASCULAR STRUCTURES: Heart normal size. No evidence for failure. BONES: No acute findings. HARDWARE: None in the chest. Clips in the upper abdomen. OTHER: No other significant finding. IMPRESSION: NO ACUTE RADIOGRAPHIC FINDING IN THE CHEST. TECHNICAL DOCUMENTATION: JOB ID: [id number] 2010 [employer]- All Rights Reserved Reading location - IP/workstation name: [email or web address]
[2019-04-18 12:24] LABS: ABSOLUTE BASOPHILS # (AUTO) 0.1 10^3/uL (0.0-0.2); ABSOLUTE EOSINOPHILS # (AUTO) 0.2 10^3/uL (0.0-0.6); ABSOLUTE LYMPHOCYTES (AUTO) 2.6 10^3/uL (0.5-4.7); ABSOLUTE MONOCYTES (AUTO) 0.7 10^3/uL (0.1-1.4); ABSOLUTE NEUT (AUTO) 5.9 10^3/uL (1.7-8.2); BASOPHILS % (AUTO) 0.5 % (0-2); EOSINOPHILS % (AUTO) 2.3 % (0-6); HEMATOCRIT 38.4 % (36.0-47.0); LYMPHOCYTES % (AUTO) 27.5 % (13-45); MEAN CORPUSCULAR VOLUME 88 fl (80-97); MONOCYTES % (AUTO) 7.1 % (3-13); PLATELET COUNT 275 10^3/uL (150-450); RED BLOOD COUNT 4.34 10^6/uL (3.72-5.28); RED CELL DISTRIBUTION WIDTH 13.1 % (11.5-14.0); SEGMENTED NEUTROPHILS % (AUTO) 62.6 % (42-78); TOTAL CELLS COUNTED % (AUTO) 100 %; WHITE BLOOD COUNT 9.5 10^3/uL (4.0-10.5)
[2019-04-18 12:40] LABS: ALBUMIN 4.5 g/dL (3.5-5.0); ALKALINE PHOSPHATASE 91 U/L (38-126); ANION GAP 13 (5-19); ASPARTATE AMINO TRANSFERASE 23 U/L (14-36); BILIRUBIN,DIRECT 0.3 mg/dL (0.0-0.4); BILIRUBIN,TOTAL 0.6 mg/dL (0.2-1.3); BLOOD UREA NITROGEN 15 mg/dL (7-20); CALCIUM 9.7 mg/dL (8.4-10.2); CARBON DIOXIDE 31 mmol/L (22-30); CHLORIDE 98 mmol/L (98-107); GLUCOSE 98 mg/dL (75-110); POTASSIUM 3.9 mmol/L (3.6-5.0); TOTAL PROTEIN 8.4 g/dL (6.3-8.2)
[2019-04-18] MEDS ORDERED: NORMAL SALINE 500 ML IV ONE (13:55)
[2019-04-18] MEDS ORDERED: KETOROLAC TROMETHAMINE INJ/PF 30 MG/1 ML SDV IV ONE (13:55)
[2019-04-18 14:47] LABS: A TYPE INFLUENZA AG NEGATIVE (NEGATIVE); B INFLUENZA AG NEGATIVE (NEGATIVE)
--- NOTE | 2019-04-18 15:42 | RADIOLOGY REPORT (SQ) ---
EXAM DESCRIPTION: CTA CHEST COMPLETED DATE/TIME: 04/18/2019 3:14 pm REASON FOR STUDY: cough vomiting COMPARISON: 01/21/2019. TECHNIQUE: CT scan of the chest performed using helical scanning technique with dynamic intravenous contrast injection. Images reviewed with lung, soft tissue and bone windows. Reconstructed coronal and sagittal MPR images reviewed. Additional 3 dimensional post-processing performed to develop Maximal Intensity Projection images (TX P). All images stored on PACS. All CT scanners at this facility use dose modulation, iterative reconstruction, and/or weight based d osing when appropriate to reduce radiation dose to as low as reasonably achievable (ALARA). [facility]: Dose Right [facility]: CareDose [facility]: Dose Right [facility]: Teradose 4D [facility]: [employer] CONTRAST TYPE AND DOSE: contrast/concentration: Isovue 350.00 mg/ml; Total Contrast Delivered: 70.0 ml; Total Saline Delivered: 80.0 ml Contrast bolus adequate for pulmonary arteries and aorta. RENAL FUNCTION: BUN 15 creatinine 0.68. RADIATION DOSE: CT Rad equipment meets quality standard of care and radiation dose reduction techniq ues were employed. CTDIvol: 13.2 - 34.2 mGy. DLP: 1119 mGy-cm. . LIMITATIONS: None. FINDINGS: LUNGS AND PLEURA: Stable nodule in the lateral right middle lobe (axial series 4, image 52 ) and nodule in the left lower lobe (axial series 4 image 67). New 7.5 mm nodule in the posterior ri ght lower lobe (axial series 4, image 60). No pleural effusion. No pneumothorax. AORTA AND GREAT VESSELS: No aneurysm. No dissection. HEART: No pericardial effusion. No significant coronary artery calcifications. PULMONARY ARTERIES: No emboli visualized in the main pulmonary arteries or the segmental branches. HILAR AND MEDIASTINAL STRUCTURES: No identified masses or abnormal nodes. HARDWARE: None in the chest. UPPER ABDOMEN: No significant findings. Limited exam. THYROID AND OTHER SOFT TISSUES: No masses. No adenopathy. BONES: No acute or significant finding. 3D MIPS: Confirm above findings. OTHER: No other significant finding. IMPRESSION: 1. NORMAL CTA OF THE CHEST. NO PULMONARY EMBOLI. 2. LUNG NODULES DESCRIBED. COMMENT: Quality ID # [id number]: Final reports with documentation of one or more dose reduction techniques (e.g., Automated exposure control, adjustment of the mA and/or kV according to patient size, use of iterative reconstruction technique) TECHNICAL DOCUMENTATION: JOB ID: [id number] 2010 [employer]- All Rights Reserved Reading location - IP/workstation name: [email or web address]
--- NOTE | 2019-04-18 16:31 | ER Document Report ---
ED General - General Chief Complaint: Cough Stated Complaint: VOMITING,COUGH Time Seen by Provider: 04/18/19 11:31 Primary Care Provider: JOVITA UP MD [Primary Care Provider] - Follow up as needed Information source: Patient TRAVEL OUTSIDE OF THE [place] IN LAST 30 DAYS: No - HPI Onset: Last week Onset/Duration: Sudden Quality of pain: Fullness Severity: Moderate Pain Level: 2 Associated symptoms: Hurts to breath, Nausea, Vomiting Exacerbated by: Coughing, Deep breathing Relieved by: Remaining still Similar symptoms previously: Yes Recently seen / treated by doctor: Yes - Related Data Allergies/Adverse Reactions: naproxen [From Aleve] Allergy (Verified 04/18/19 11:32) diphenhydramine HCl [From Benadryl] Adverse Reaction (Mild, Verified 04/18/19 11:32) makes me feel funny Past Medical History - General Information source: Patient - Social History Smoking Status: Unknown if Ever Smoked Cigarette use (# per day): No Chew tobacco use (# tins/day): No Smoking Education Provided: No Frequency of alcohol use: None Drug Abuse: None Family History: Reviewed & Not Pertinent, CAD, DM, Hyperlipidemia, Hypertension, Malignancy, Thyroid Disfunction Patient has suicidal ideation: No Patient has homicidal ideation: No - Past Medical History Cardiac Medical History: Reports: Hx Hypercholesterolemia, Hx Hypertension Denies: Hx Heart Attack Pulmonary Medical History: Reports: Hx Asthma - pt states she doesnt have, Hx Bronchitis, Hx Pneumonia Denies: Hx COPD, Hx Tuberculosis Neurological Medical History: Denies: Hx Seizures, Hx Parkinson's Disease Endocrine Medical History: Reports: Hx Diabetes Mellitus Type 2 Renal/ Medical History: Denies: Hx Peritoneal Dialysis GI Medical History: Reports: Hx Gastroesophageal Reflux Disease Musculoskeletal Medical History: Reports Hx Arthritis, Reports Hx Musculoskeletal Deformity Past Surgical History: Reports: Hx Section, Hx Cholecystectomy, Hx Orthopedic Surgery - Carpal tunnel cyst right hand. Denies: Hx Hysterectomy - Immunizations Immunizations up to date: Yes Hx Diphtheria, Pertussis, Tetanus Vaccination: Yes Hx Pneumococcal Vaccination: 12/02/13 Review of Systems - Review of Systems Constitutional: See HPI, Fever, Weakness EENT: See HPI, Nose congestion Cardiovascular: See HPI, Chest pain, Lightheaded Respiratory: See HPI, Cough Gastrointestinal: No symptoms reported Genitourinary: No symptoms reported Female Genitourinary: No symptoms reported Musculoskeletal: No symptoms reported Skin: No symptoms reported Hematologic/Lymphatic: No symptoms reported Neurological/Psychological: No symptoms reported Physical Exam - Vital signs Vitals: Temp Pulse Resp BP Pulse Ox 97.7 F 84 16 156/83 H 96 04/18/19 11:15 04/18/19 11:15 04/18/19 11:15 04/18/19 11:15 04/18/19 11:15 Interpretation: Normal - General General appearance: Appears well - HEENT Head: Normocephalic Eyes: Normal Conjunctiva: Normal Cornea: Normal Extraocular movements intact: Yes Ears: Normal Sinus: Normal Nasal: Normal Mouth/Lips: Normal Mucous membranes: Normal Pharynx: Normal Neck: Normal - Respiratory Respiratory status: No respiratory distress Chest status: Nontender Breath sounds: Normal Chest palpation: Normal - Cardiovascular Rhythm: Regular Heart sounds: Normal auscultation Murmur: No Friction rub: No Emi's crunch: No - Abdominal Inspection: Normal Distension: No distension Bowel sounds: Normal Tenderness: Nontender - Back Back: Normal - Extremities General upper extremity: Normal inspection General lower extremity: Normal inspection - Neurological Neuro grossly intact: Yes Cognition: Normal Orientation: AAOx4 Valentín Coma Scale Eye Opening: Spontaneous Valentín Coma Scale Verbal: Oriented [place] Coma Scale Motor: Obeys Commands [place] Coma Scale Total: 15 Speech: Normal Cranial nerves: Normal Cerebellar coordination: Normal Motor strength normal: LUE, RUE, LLE, RLE - Psychological Associated symptoms: Normal affect - Skin Skin Temperature: Warm Skin Moisture: Dry Course - Vital Signs Vital signs: Temp Pulse Resp BP Pulse Ox 97.7 F 84 16 156/83 H 96 04/18/19 11:15 04/18/19 11:15 04/18/19 11:15 04/18/19 11:15 04/18/19 11:15 - Laboratory Result Diagrams: 04/18/19 12:12 04/18/19 12:12 Laboratory results interpreted by me: 04/18/19 12:12 Carbon Dioxide 31 H Total Protein 8.4 H - Diagnostic Test Radiology reviewed: Reports reviewed Critical Care Note - Critical Care Note Total time excluding time spent on procedures (mins): 90 Comments: Advised patient and of the CT x-ray and lab findings Discharge - Discharge Clinical Impression: Acute bronchitis with bronchospasm, URI (upper respiratory infection) Condition: Good Disposition: HOME, SELF-CARE Additional Instructions: Follow-up with personal doctor this week return to ER as needed take medicines as directed encourage fluids; Prescriptions: Prednisone [Deltasone 20 mg Tablet] 1 tab PO DAILY 5 Days #5 tablet Levofloxacin [Levaquin 500 mg Tablet] 500 mg PO DAILY #7 tablet Promethazine HCl/Codeine [Promethazine-Codeine Syrup] 5 ml PO TID PRN #120 ml PRN Reason: Cough Promethazine HCl/Codeine [Promethazine-Codeine Syrup] 5 ml PO TID PRN 7 Days #120 ml PRN Reason: Referrals: JOVITA UP MD [Primary Care Provider] - Follow up as needed
[2019-04-18 16:51] VITALS: BP 117/56
== END 2019-04-18 16:51 | disposition home or self-care (01) ==
LOC: ER 11:03
DX: J20.9 Acute bronchitis, unspecified (principal); J06.9 Acute upper respiratory infection, unspecified; R11.2 Nausea with vomiting, unspecified; R50.9 Fever, unspecified; R53.1 Weakness; R09.81 Nasal congestion; R07.1 Chest pain on breathing; R05 Cough; Z88.8 Allergy status to other drugs, medicaments and biological substances; Z87.01 Personal history of pneumonia (recurrent); E11.9 Type 2 diabetes mellitus without complications; R42 Dizziness and giddiness
CPT/HCPCS: 99284; 96361; 96374; 36415; 83690; 85025; 80053; 87804; 71046; 71275; A9270 ×2; J1885; J7040; S0119

== ENCOUNTER → 2019-08-24 | Outpatient (CLI) | payer MEDICARE, OTHER ==
[2019-08-24 09:30] LABS: CHOLESTEROL 149.76 mg/dL (0-200); TRIGLYCERIDES 116 mg/dL (<150)
[2019-08-24 09:40] LABS: DIRECT LDL 73 mg/dL (<100)
== END ==
LOC: OD 08:02
PROVIDERS: ATTEND Family Medicine
DX: E11.9 Type 2 diabetes mellitus without complications (principal); Z79.899 Other long term (current) drug therapy; E03.9 Hypothyroidism, unspecified
CPT/HCPCS: 36415; 80061; 83036; 84436; 84443

== ENCOUNTER → 2019-10-12 | Outpatient (CLI) | payer MEDICARE, OTHER ==
--- NOTE | 2019-10-12 10:32 | RADIOLOGY REPORT (SQ) ---
EXAM DESCRIPTION: CT CHEST WITHOUT IMAGES COMPLETED DATE/TIME: 10/12/2019 9:31 am REASON FOR STUDY: (R91.1)SOLITARY PULMONARY NODULE R91.1 SOLITARY PULMONARY NODULE COMPARISON: 04/18/2019 TECHNIQUE: CT scan performed of the chest without intravenous contrast. Images reviewed with lung, soft tissue and bone windows. Reconstructed coronal and sagittal MPR images reviewed. All images st ored on PACS. All CT scanners at this facility use dose modulation, iterative reconstruction, and/or weight based d osing when appropriate to reduce radiation dose to as low as reasonably achievable (ALARA). [facility]: Dose Right [facility]: CareDose [facility]: Dose Right [facility]: Teradose 4D [facility]: [employer] RADIATION DOSE: CT Rad equipment meets quality standard of care and radiation dose reduction techniq ues were employed. CTDIvol: 19.4 mGy. DLP: 689 mGy-cm. mGy. LIMITATIONS: No technical limitations. FINDINGS: LUNGS AND PLEURA: Stable right lateral middle lobe nodule measuring 4 mm (series 4, image 55). Stable left lower lobe 8 mm pulmonary nodule (series 4, image 67). Previously described right lower lobe 7.5 mm nodule has resolved. No new discrete nodules or masses. Scattered calcified granu thai. No focal airspace disease. No pleural effusion or pneumothorax. HILAR AND MEDIASTINAL STRUCTURES: No aneurysm. Stable prominent mediastinal nodes. For reference la rgest precarinal node measures 14 mm in short axis (series 601, image 42) HEART AND VASCULAR STRUCTURES: No aneurysm. No pericardial effusion. UPPER ABDOMEN: No acute findings. Prior cholecystectomy. THYROID AND OTHER SOFT TISSUES: No masses. No adenopathy. BONES: No acute findings. No suspicious osseous lesions. HARDWARE: None in the chest. OTHER: No other significant findings. IMPRESSION: 1. Resolution of previously seen right lower lobe pulmonary nodule. Stable additional nodules as above. 2. Stable prominent mediastinal nodes, largest pretracheal node measures 14 mm in short axis. TECHNICAL DOCUMENTATION: JOB ID: [id number] Quality ID # [id number]: Final reports with documentation of one or more dose reduction techniques (e.g., Au tomated exposure control, adjustment of the mA and/or kV according to patient size, use of iterative reconstruction technique) 2010 [employer]- All Rights Reserved Reading location - IP/workstation name: [email or web address]
== END ==
LOC: RAD 09:04
PROVIDERS: ATTEND Internal Medicine Pulmonary Disease
DX: R91.1 Solitary pulmonary nodule (principal)
CPT/HCPCS: 71250

== ENCOUNTER 2019-11-27 09:06 | Emergency (ER) | payer MEDICARE, OTHER ==
--- NOTE | 2019-11-27 11:50 | RADIOLOGY REPORT (SQ) ---
EXAM DESCRIPTION: CHEST SINGLE VIEW IMAGES COMPLETED DATE/TIME: 11/27/2019 11:27 am REASON FOR STUDY: cough COMPARISON: 04/18/2019 EXAM PARAMETERS: NUMBER OF VIEWS: One view. TECHNIQUE: Single frontal radiographic view of the chest acquired. RADIATION DOSE: NA LIMITATIONS: None. FINDINGS: LUNGS AND PLEURA: No opacities, masses or pneumothorax. No pleural effusion. MEDIASTINUM AND HILAR STRUCTURES: No masses. Contour normal. HEART AND VASCULAR STRUCTURES: Heart normal in size. Normal vasculature. BONES: No acute findings. HARDWARE: None in the chest. OTHER: No other significant finding. IMPRESSION: NO ACUTE RADIOGRAPHIC FINDING IN THE CHEST. TECHNICAL DOCUMENTATION: JOB ID: [id number] 2010 [employer]- All Rights Reserved Reading location - IP/workstation name: [email or web address]
[2019-11-27 11:52] LABS: ABSOLUTE EOSINOPHILS # (AUTO) 0.4 10^3/uL (0.0-0.6); ABSOLUTE LYMPHOCYTES (AUTO) 2.2 10^3/uL (0.5-4.7); ABSOLUTE MONOCYTES (AUTO) 0.7 10^3/uL (0.1-1.4); ABSOLUTE NEUT (AUTO) 4.3 10^3/uL (1.7-8.2); BASOPHILS % (AUTO) 0.6 % (0-2); EOSINOPHILS % (AUTO) 4.7 % (0-6); HEMATOCRIT 36.2 % (36.0-47.0); HEMOGLOBIN 12.3 g/dL (12.0-15.5); LYMPHOCYTES % (AUTO) 29.4 % (13-45); MEAN CORPUSCULAR VOLUME 88 fl (80-97); MONOCYTES % (AUTO) 9.6 % (3-13); PLATELET COUNT 226 10^3/uL (150-450); RED CELL DISTRIBUTION WIDTH 13.3 % (11.5-14.0); SEGMENTED NEUTROPHILS % (AUTO) 55.7 % (42-78); TOTAL CELLS COUNTED % (AUTO) 100 %; WHITE BLOOD COUNT 7.6 10^3/uL (4.0-10.5)
[2019-11-27 12:16] LABS: ALBUMIN 4.2 g/dL (3.5-5.0); ALKALINE PHOSPHATASE 74 U/L (38-126); ANION GAP 12 (5-19); ASPARTATE AMINO TRANSFERASE 24 U/L (14-36); BILIRUBIN,DIRECT 0.3 mg/dL (0.0-0.4); BILIRUBIN,TOTAL 0.7 mg/dL (0.2-1.3); BLOOD UREA NITROGEN 14 mg/dL (7-20); CALCIUM 9.1 mg/dL (8.4-10.2); CARBON DIOXIDE 27 mmol/L (22-30); CHLORIDE 104 mmol/L (98-107); GLUCOSE 85 mg/dL (75-110); POTASSIUM 3.7 mmol/L (3.6-5.0); TOTAL PROTEIN 7.3 g/dL (6.3-8.2)
--- NOTE | 2019-11-27 12:23 | ER Document Report ---
Entered by ANA KAPLAN SCRIBE 11/27/19 1111 Acting as scribe for:LAURA ALBRECHT MD ED Respiratory Problem - General Chief Complaint: Cough Stated Complaint: COUGH Time Seen by Provider: 11/27/19 10:27 Primary Care Provider: JOVITA UP MD [Primary Care Provider] - Follow up as needed Mode of Arrival: Ambulatory Information source: Patient Notes: This 64 year old female patient presents to the emergency department today with complaints of a dry cough for the last three days with associated chest pain. She reports that she thinks the chest pain is related to the cough as it just recently began and it is exacerbated with the cough. She also complains of a mild sore throat. No fevers or change in taste/smell. TRAVEL OUTSIDE OF THE [place] IN LAST 30 DAYS: No - Related Data Allergies/Adverse Reactions: naproxen [From Aleve] Allergy (Verified 04/18/19 11:32) diphenhydramine HCl [From Benadryl] Adverse Reaction (Mild, Verified 04/18/19 11:32) makes me feel funny Past Medical History - General Information source: Patient - Social History Smoking Status: Never Smoker Cigarette use (# per day): No Chew tobacco use (# tins/day): No Frequency of alcohol use: None Drug Abuse: None Lives with: Family Family History: Reviewed & Not Pertinent, CAD, DM, Hyperlipidemia, Hypertension, Malignancy, Thyroid Disfunction Patient has homicidal ideation: No - Past Medical History Cardiac Medical History: Reports: Hx Hypercholesterolemia, Hx Hypertension Pulmonary Medical History: Reports: Hx Bronchitis, Hx Pneumonia Endocrine Medical History: Reports: Hx Diabetes Mellitus Type 2 GI Medical History: Reports: Hx Gastroesophageal Reflux Disease Musculoskeletal Medical History: Reports Hx Arthritis, Reports Hx Musculoskeletal Deformity Past Surgical History: Reports: Hx Section, Hx Cholecystectomy, Hx Orthopedic Surgery - Carpal tunnel cyst right hand - Immunizations Immunizations up to date: Yes Hx Diphtheria, Pertussis, Tetanus Vaccination: Yes Hx Pneumococcal Vaccination: 12/02/13 Review of Systems - Review of Systems Constitutional: denies: Fever EENT: See HPI, Throat pain Cardiovascular: No symptoms reported Respiratory: See HPI, Cough Gastrointestinal: No symptoms reported Genitourinary: No symptoms reported Female Genitourinary: No symptoms reported Musculoskeletal: No symptoms reported Skin: No symptoms reported Hematologic/Lymphatic: No symptoms reported Neurological/Psychological: No symptoms reported -: Yes All other systems reviewed and negative Physical Exam - Vital signs Vitals: Temp Pulse Resp BP Pulse Ox 98.2 F 83 20 124/69 95 11/27/19 09:28 11/27/19 09:28 11/27/19 09:28 11/27/19 09:28 11/27/19 09:28 - Notes Notes: Physical Exam: General: Alert, appears well. HEENT: Normocephalic. Atraumatic. PERRL. Extraocular movements intact. Oropharynx clear. Neck: Supple. Non-tender. Respiratory: No respiratory distress. Dry harsh sounding cough. Anterior chest wall is exquisitely tender to palpation. Cardiovascular: Regular rate and rhythm. Abdominal: Obese. Non-tender. No distension. Normal Bowel Sounds. Back: No gross abnormalities. Extremities: Moves all four extremities. Upper extremities: Normal inspection. Normal ROM. Lower extremities: Normal inspection. No edema. Normal ROM. Neurological: Normal cognition. AAOx4. Normal speech. Psychological: Normal affect. Normal Mood. Skin: Warm. Dry. Normal color. Course - Re-evaluation Re-evalutation: 11/27/19 13:04 The patient was evaluated during the global COVID-19 pandemic and that diagnosis was suspected/considered upon their initial presentation. Their evaluation, treatment and testing was consistent with current guidelines for patients who present with complaints or symptoms that may be related to COVID-19. - Vital Signs Vital signs: Temp Pulse Resp BP Pulse Ox 98.2 F 83 20 124/69 95 11/27/19 09:49 11/27/19 09:28 11/27/19 09:28 11/27/19 09:28 11/27/19 09:28 - Laboratory Result Diagrams: 11/27/19 11:25 11/27/19 11:25 - Diagnostic Test Radiology reviewed: Image reviewed, Reports reviewed - Chest x-ray does not show acute cardiopulmonary process Discharge - Discharge Clinical Impression: Viral upper respiratory tract infection with cough, Encounter for laboratory testing for COVID-19 virus Condition: Stable Disposition: HOME, SELF-CARE Instructions: COVID-19 Guidance for Persons Under Investigation Additional Instructions: Upper Respiratory Illness You have a viral infection of the respiratory passages -- a "cold." This common infection causes nasal congestion, drainage, and often sore throat and cough. It is caused by a virus and is highly contagious. The disease usually lasts a week or more, though the worst symptoms are usually over in 3 or 4 days. There is no "cure" for the viral infection -- it must run its course. If there is a complication, such as bacterial infection in the nose, sinuses, middle ear, or bronchial tubes, antibiotics may be required, but antibiotics won't affect the virus. If you smoke, you should STOP!! Drink plenty of fluids. A humidifier may help. An expectorant medication or decongestant may make you more comfortable. Use acetaminophen or ibuprofen for fever or aches. See the doctor if fever persists over two or three days, if there is any significant worsening of your symptoms, or if you simply fail to improve as expected. Take the Tessalon Perles as prescribed to help control your cough. Add something like Delsym DM cough syrup for additional cough suppression. Drink plenty fluids get plenty of rest. Self isolate at home until you get the results of the COVID test. Follow-up with your primary care provider if not improving. RETURN TO THE EMERGENCY ROOM IF ANY NEW OR WORSENING SYMPTOMS. Prescriptions: Benzonatate [Tessalon Perles 100 mg Capsule] 100 mg PO ASDIR PRN #30 capsule PRN Reason: Referrals: JOVITA UP MD [Primary Care Provider] - Follow up as needed I personally performed the services described in the documentation, reviewed and edited the documentation which was dictated to the scribe in my presence, and it accurately records my words and actions.
[2019-11-27 13:26] VITALS: BP 141/71
== END 2019-11-27 13:25 | disposition home or self-care (01) ==
LOC: ER 09:06
DX: J06.9 Acute upper respiratory infection, unspecified (principal); B97.89 Other viral agents as the cause of diseases classified elsewhere; R05 Cough; R07.9 Chest pain, unspecified; J02.9 Acute pharyngitis, unspecified; I10 Essential (primary) hypertension; E11.9 Type 2 diabetes mellitus without complications; Z87.01 Personal history of pneumonia (recurrent); Z88.8 Allergy status to other drugs, medicaments and biological substances; Z20.828 Contact with and (suspected) exposure to other viral communicable diseases
CPT/HCPCS: 99284; 36415; 85025; 80053; 71045; U0003; C9803; 87635

== ENCOUNTER 2019-12-03 15:56 | Emergency (ER) | payer MEDICARE, OTHER ==
[2019-12-03] MEDS ORDERED: IPRATROPIUM/ALBUTEROL 0.5-2.5 MG/3 ML AMPUL NEB ONE (16:18)
[2019-12-03] MEDS ORDERED: LIDOCAINE 1% INJ-PF (10 MG/ML) 30 ML SDV NEB ONE (16:19)
[2019-12-03] MEDS ORDERED: HYDROCODONE/ACETAMINOPHEN 5-325 MG TABLET PO ONE (16:21)
[2019-12-03] MEDS ORDERED: PREDNISONE 20 MG TABLET PO ONE (16:21)
--- NOTE | 2019-12-03 17:02 | ER Document Report ---
Entered by ANA KAPLAN SCRIBE 12/03/19 0595 Acting as scribe for:LAURA ALBRECHT MD ED Respiratory Problem - General Chief Complaint: Cough Stated Complaint: COUGH Time Seen by Provider: 12/03/19 16:05 Primary Care Provider: JOVITA UP MD [Primary Care Provider] - Follow up as needed Information source: Patient Notes: This 64 year old female patient presents to the emergency department today with complaints of a persistent cough for over a week. This patient was seen here about a week ago and was diagnosed with an upper respiratory virus. She was sent home on Tessalon Perles and breathing treatments which she states is helping a little. Cough has remained nonproductive. She has also had some diarrhea and posttussive emesis. Patient states she is not nauseated and she only vomits because she coughs so much. Patient denies fevers. Later the patient told me that her pharmacist would not let her have Delsym DM stating that she could not take it and Tessalon Perles at the same time. TRAVEL OUTSIDE OF THE [place] IN LAST 30 DAYS: No - Related Data Allergies/Adverse Reactions: naproxen [From Aleve] Allergy (Verified 04/18/19 11:32) diphenhydramine HCl [From Benadryl] Adverse Reaction (Mild, Verified 04/18/19 11:32) makes me feel funny Past Medical History - General Information source: Patient - Social History Smoking Status: Never Smoker Cigarette use (# per day): No Frequency of alcohol use: None Drug Abuse: None Lives with: Family Family History: Reviewed & Not Pertinent, CAD, DM, Hyperlipidemia, Hypertension, Malignancy, Thyroid Disfunction - Past Medical History Cardiac Medical History: Reports: Hx Hypercholesterolemia, Hx Hypertension Pulmonary Medical History: Reports: Hx Asthma - pt states she doesnt have, Hx Bronchitis, Hx Pneumonia Endocrine Medical History: Reports: Hx Diabetes Mellitus Type 2 GI Medical History: Reports: Hx Gastroesophageal Reflux Disease Musculoskeletal Medical History: Reports Hx Arthritis, Reports Hx Musculoskeletal Deformity Past Surgical History: Reports: Hx Section, Hx Cholecystectomy, Hx Orthopedic Surgery - Carpal tunnel cyst right hand. Denies: Hx Hysterectomy - Immunizations Immunizations up to date: Yes Hx Diphtheria, Pertussis, Tetanus Vaccination: Yes Hx Pneumococcal Vaccination: 12/02/13 Review of Systems - Review of Systems Constitutional: denies: Fever EENT: No symptoms reported Cardiovascular: No symptoms reported Respiratory: See HPI, Cough Gastrointestinal: See HPI, Vomiting. denies: Nausea Genitourinary: No symptoms reported Female Genitourinary: No symptoms reported Musculoskeletal: No symptoms reported Skin: No symptoms reported Hematologic/Lymphatic: No symptoms reported Neurological/Psychological: No symptoms reported -: Yes All other systems reviewed and negative Physical Exam - Vital signs Vitals: Temp Pulse Resp BP Pulse Ox 98.2 F 103 H 20 153/85 H 95 12/03/19 16:00 12/03/19 16:00 12/03/19 16:00 12/03/19 16:00 12/03/19 16:00 - Notes Notes: Physical Exam: General: Alert, appears well. HEENT: Normocephalic. Atraumatic. PERRL. Extraocular movements intact. Oropharynx clear. Nasal sinus congestion. Neck: Supple. Non-tender. Respiratory: No respiratory distress. Dry harsh sounding cough, no wheezes or rhonchi. Clear and equal breath sounds bilaterally. Cardiovascular: Regular rate and rhythm. Abdominal: Obese. Non-tender. No distension. Normal Bowel Sounds. Back: No gross abnormalities. Extremities: Moves all four extremities. Upper extremities: Normal inspection. Normal ROM. Lower extremities: Normal inspection. No edema. Normal ROM. Neurological: Normal cognition. AAOx4. Normal speech. Psychological: Normal affect. Normal Mood. Skin: Warm. Dry. Normal color. Course - Vital Signs Vital signs: Temp Pulse Resp BP Pulse Ox 98.2 F 103 H 20 153/85 H 95 12/03/19 16:00 12/03/19 16:00 12/03/19 16:12/03/19 16:00 12/03/19 16:00 Discharge - Discharge Clinical Impression: Viral upper respiratory tract infection with cough Condition: Stable Disposition: HOME, SELF-CARE Additional Instructions: Upper Respiratory Illness You have a viral infection of the respiratory passages -- a "cold." This common infection causes nasal congestion, drainage, and often sore throat and cough. It is caused by a virus and is highly contagious. The disease usually lasts a week or more, though the worst symptoms are usually over in 3 or 4 days. There is no "cure" for the viral infection -- it must run its course. If there is a complication, such as bacterial infection in the nose, sinuses, middle ear, or bronchial tubes, antibiotics may be required, but antibiotics won't affect the virus. If you smoke, you should STOP!! Drink plenty of fluids. A humidifier may help. An expectorant medication or decongestant may make you more comfortable. Use acetaminophen or ibuprofen for fever or aches. See the doctor if fever persists over two or three days, if there is any significant worsening of your symptoms, or if you simply fail to improve as expected. Start the prednisone as prescribed tomorrow. Drink plenty of fluids throughout the day in the evening to stay hydrated. Take the generic version of Delsym which is a dextromethorphan polistirex resin. You may also take the Tessalon Perles. Use your nebulizer as needed for wheezing. Be sure to check your sugars frequently and adjust your insulin as needed as prednisone will make your blood sugars go up. Follow-up with your primary care provider Saturday for recheck if not improving on the steroids over the weekend. RETURN TO THE EMERGENCY ROOM IF ANY NEW OR WORSENING SYMPTOMS. Prescriptions: Prednisone [Deltasone 10 mg Tablet] 10 mg PO ASDIR PRN #21 tablet PRN Reason: Referrals: JOVITA UP MD [Primary Care Provider] - Follow up as needed I personally performed the services described in the documentation, reviewed and edited the documentation which was dictated to the scribe in my presence, and it accurately records my words and actions.
[2019-12-03 20:23] VITALS: BP 124/70
== END 2019-12-03 20:36 | disposition home or self-care (01) ==
LOC: ER 15:56
DX: J06.9 Acute upper respiratory infection, unspecified (principal); B97.89 Other viral agents as the cause of diseases classified elsewhere; R05 Cough; R19.7 Diarrhea, unspecified; R11.11 Vomiting without nausea; R09.81 Nasal congestion; I10 Essential (primary) hypertension; E11.9 Type 2 diabetes mellitus without complications; Z87.01 Personal history of pneumonia (recurrent); Z88.8 Allergy status to other drugs, medicaments and biological substances
CPT/HCPCS: 94640; 99283; J3490; A9270 ×2; J7512

== ENCOUNTER 2019-12-27 18:00 | Emergency (ER) | payer MEDICARE, OTHER ==
[2019-12-27 18:25] VITALS: BP 157/89
--- NOTE | 2019-12-27 19:32 | RADIOLOGY REPORT (SQ) ---
EXAM DESCRIPTION: ACUTE ABDOMEN SERIES IMAGES COMPLETED DATE/TIME: 12/27/2019 7:14 pm REASON FOR STUDY: cough/diarrhea COMPARISON: Chest radiograph 11/27/2019 NUMBER OF VIEWS: Four views. TECHNIQUE: Frontal chest, supine abdomen and upright/decubitus abdomen radiographic images acquired. LIMITATIONS: None. FINDINGS: CHEST: Lungs clear of infiltrates. Heart size normal without failure. No hilar or mediast inal masses. FREE AIR: None. No abnormal gas collections. BOWEL GAS PATTERN: Nonobstructive pattern. No dilated loops or air fluid levels. CALCIFICATIONS: No suspicious calcifications. HARDWARE: Cholecystectomy clips. SOFT TISSUES: No gross mass or suggestion of organomegaly. BONES: No acute fracture. No worrisome bone lesions. OTHER: No other significant finding. IMPRESSION: No acute pulmonary process. Nonobstructive bowel gas pattern. TECHNICAL DOCUMENTATION: JOB ID: [id number] 2010 [employer]- All Rights Reserved Reading location - IP/workstation name: [email or web address]
[2019-12-27 19:36] LABS: ABSOLUTE BASOPHILS # (AUTO) 0.1 10^3/uL (0.0-0.2); ABSOLUTE EOSINOPHILS # (AUTO) 0.2 10^3/uL (0.0-0.6); ABSOLUTE LYMPHOCYTES (AUTO) 2.8 10^3/uL (0.5-4.7); ABSOLUTE MONOCYTES (AUTO) 0.6 10^3/uL (0.1-1.4); ABSOLUTE NEUT (AUTO) 6.1 10^3/uL (1.7-8.2); BASOPHILS % (AUTO) 0.6 % (0-2); EOSINOPHILS % (AUTO) 2.3 % (0-6); HEMATOCRIT 40.4 % (36.0-47.0); HEMOGLOBIN 13.8 g/dL (12.0-15.5); LYMPHOCYTES % (AUTO) 28.7 % (13-45); MEAN CORPUSCULAR HEMOGLOBIN 30.3 pg (27.0-33.4); MEAN CORPUSCULAR HGB CONC 34.2 g/dL (32.0-36.0); MEAN CORPUSCULAR VOLUME 89 fl (80-97); MONOCYTES % (AUTO) 6.6 % (3-13); PLATELET COUNT 210 10^3/uL (150-450); RED BLOOD COUNT 4.55 10^6/uL (3.72-5.28); SEGMENTED NEUTROPHILS % (AUTO) 61.8 % (42-78); TOTAL CELLS COUNTED % (AUTO) 100 %; WHITE BLOOD COUNT 9.8 10^3/uL (4.0-10.5)
[2019-12-27 19:57] LABS: ALBUMIN 4.3 g/dL (3.5-5.0); ALKALINE PHOSPHATASE 69 U/L (38-126); ANION GAP 12 (5-19); ASPARTATE AMINO TRANSFERASE 21 U/L (14-36); BILIRUBIN,DIRECT 0.4 mg/dL (0.0-0.4); BILIRUBIN,TOTAL 1.2 mg/dL (0.2-1.3); BLOOD UREA NITROGEN 20 mg/dL (7-20); CALCIUM 9.6 mg/dL (8.4-10.2); CARBON DIOXIDE 25 mmol/L (22-30); CHLORIDE 103 mmol/L (98-107); GLUCOSE 114 mg/dL (75-110); POTASSIUM 3.8 mmol/L (3.6-5.0); TOTAL PROTEIN 7.5 g/dL (6.3-8.2)
--- NOTE | 2019-12-27 20:29 | ER Document Report ---
Entered by ANA KAPLAN SCRIBE 12/27/19 1846 Acting as scribe for:ADA ARANGO MD ED Respiratory Problem - General Stated Complaint: COUGH,VOMITING Time Seen by Provider: 12/27/19 18:11 Primary Care Provider: JOVITA UP MD [Primary Care Provider] - Follow up as needed Information source: Patient Notes: This 64-year-old female patient presents to the emergency department today for complaints of a continued cough. Patient has been seen here 3 times in the last month for a bronchitic cough. Patient was recently seen by her PCP 11 days ago was started on a 10-day course of steroids which she finished yesterday. Patient mentions that her sister and brother both have tested positive for COVID-19 and she has been around them recently so she would like to be tested. Patient complains of nasal congestion, chills, sore throat, diarrhea, and a headache as well. Patient denies a loss of taste or smell. TRAVEL OUTSIDE OF THE [place] IN LAST 30 DAYS: No - Related Data Allergies/Adverse Reactions: ibuprofen [From Advil] Allergy (Verified 12/27/19 18:25) naproxen [From Aleve] Allergy (Verified 04/18/19 11:32) diphenhydramine HCl [From Benadryl] Adverse Reaction (Mild, Verified 04/18/19 11:32) makes me feel funny Past Medical History - General Information source: Patient - Social History Smoking Status: Never Smoker Cigarette use (# per day): No Frequency of alcohol use: None Drug Abuse: None Lives with: Family Family History: Reviewed & Not Pertinent, CAD, DM, Hyperlipidemia, Hypertension, Malignancy, Thyroid Disfunction - Past Medical History Cardiac Medical History: Reports: Hx Hypercholesterolemia, Hx Hypertension Pulmonary Medical History: Reports: Hx Asthma - pt states she doesnt have, Hx B ronchitis, Hx Pneumonia Endocrine Medical History: Reports: Hx Diabetes Mellitus Type 2 GI Medical History: Reports: Hx Gastroesophageal Reflux Disease Musculoskeletal Medical History: Reports Hx Arthritis, Reports Hx Musculo skeletal Deformity Past Surgical History: Reports: Hx Section, Hx Cholecystectomy, Hx Orthopedic Surgery - Carpal tunnel cyst right hand - Immunizations Immunizations up to date: Yes Hx Diphtheria, Pertussis, Tetanus Vaccination: Yes Hx Pneumococcal Vaccination: 12/02/13 Review of Systems - Review of Systems Constitutional: See HPI, Chills. denies: Fever EENT: See HPI, Throat pain Cardiovascular: No symptoms reported Respiratory: See HPI, Cough Gastrointestinal: See HPI, Nausea Genitourinary: No symptoms reported Female Genitourinary: No symptoms reported Musculoskeletal: No symptoms reported Skin: No symptoms reported Hematologic/Lymphatic: No symptoms reported Neurological/Psychological: See HPI, Headaches -: Yes All other systems reviewed and negative Physical Exam - Vital signs Vitals: Temp Pulse Resp BP Pulse Ox 97.8 F 99 16 157/89 H 96 12/27/19 18:17 12/27/19 18:17 12/27/19 18:17 12/27/19 18:17 12/27/19 18:17 - Notes Notes: Physical Exam: General: Alert, appears well. HEENT: Normocephalic. Atraumatic. PERRL. Extraocular movements intact. No posterior oropharynx erythema or exudate, airway is patent. TMs are clear and non-bulging bilaterally. Neck: Supple. Non-tender. Respiratory: No respiratory distress. Clear and equal breath sounds bilaterally. Cardiovascular: Regular rate and rhythm. Abdominal: Morbidly obese. Non-tender. No distension. Normal Bowel Sounds. Back: No gross abnormalities. Extremities: Moves all four extremities. Upper extremities: Normal inspection. Normal ROM. Lower extremities: Normal inspection. No edema. Normal ROM. Neurological: Normal cognition. AAOx4. Normal speech. Psychological: Normal affect. Normal Mood. Skin: Warm. Dry. Normal color. Course - Re-evaluation Re-evalutation: 12/27/19 20:13 Patient awaiting test results not showing any signs of distress at this time. 12/27/19 20:15 Patient reports that she does not have any diarrhea at this time present. Therefore stool has not been collected. - Vital Signs Vital signs: Temp Pulse Resp BP Pulse Ox 97.8 F 99 16 157/89 H 96 12/27/19 18:17 12/27/19 18:17 12/27/19 18:17 12/27/19 18:17 12/27/19 18:17 12/27/19 20:13 Vital signs are stable. - Laboratory Result Diagrams: 12/27/19 19:15 12/27/19 19:15 Laboratory results interpreted by me: 12/27/19 19:15 Glucose 114 H Acute Abdomen Series 12/27/19 18:51 IMPRESSION: No acute pulmonary process. Nonobstructive bowel gas pattern. 12/27/19 19:15 12/27/19 19:15 MCV 89 fl (80-97) 12/27/19 19:15 MCH 30.3 pg (27.0-33.4) 12/27/19 19:15 MCHC 34.2 g/dL (32.0-36.0) 12/27/19 19:15 RDW 14.0 % (11.5-14.0) 12/27/19 19:15 Seg Neutrophils % 61.8 % (42-78) 12/27/19 19:15 Chloride 103 mmol/L (98-107) 12/27/19 19:15 Carbon Dioxide 25 mmol/L (22-30) 12/27/19 19:15 Anion Gap 12 (5-19) 12/27/19 19:15 Est GFR ( Amer) > 60 (>60) 12/27/19 19:15 Glucose 114 mg/dL (75-110) H 12/27/19 19:15 Calcium 9.6 mg/dL (8.4-10.2) 12/27/19 19:15 Total Bilirubin 1.2 mg/dL (0.2-1.3) 12/27/19 19:15 AST 21 U/L (14-36) 12/27/19 19:15 Alkaline Phosphatase 69 U/L (38-126) 12/27/19 19:15 Total Protein 7.5 g/dL (6.3-8.2) 12/27/19 19:15 Albumin 4.3 g/dL (3.5-5.0) 12/27/19 19:15 Lipase 84.6 U/L (23-300) 12/27/19 19:15 12/27/19 20:14 Laboratory results essentially within normal limits. - Diagnostic Test Radiology reviewed: Image reviewed, Reports reviewed Radiology results interpreted by me: 12/27/19 20:15 Acute abdominal series shows nonspecific bowel gas pattern chest x-ray clear no acute process. Discharge - Discharge Clinical Impression: Viral URI, Suspected COVID-19 virus infection, Diarrhea Condition: Stable Disposition: HOME, SELF-CARE Instructions: COVID-19 Guidance for Persons Under Investigation, Upper Respiratory Illness ([facility]), Viral Syndrome ([facility]) Additional Instructions: Diarrhea Diarrhea means frequent, watery stools. There are many causes. Any problem that keeps the intestinal tract from absorbing water from the stool can lead to diarrhea. A sudden new diarrhea problem is usually caused by a virus, food sensitivity, toxic bacteria, or drugs. In this case, we expect the problem to go away soon. Testing is done only if you seem seriously ill from the diarrhea. If you have chronic diarrhea, or diarrhea that keeps coming back, we need to find out why. Chronic diarrhea can be due to inflammation of the bowels such as Crohn's disease or ulcerative colitis, food sensitivity such as intolerance to lactose or wheat protein, irritable bowel syndrome, and other problems. If your diarrhea is a significant problem but it's not clear why you have it, we'll refer you to a specialist for further testing. During an episode of diarrhea, drink small amounts (two to six ounces) of clear liquids (soft drinks, sport drinks, herb teas, broth, etc). Take fluids frequently to prevent dehydration. It's usually not a problem to take mild anti-diarrhea medication such as Kaopectate or Pepto-Bismol. As the diarrhea eases, advance to small amounts of bland food (mashed potato, toast) for 24 hours. Call the physician if blood appears in your vomit or stool, if vomiting lasts longer than 24 hours, if the abdominal pain worsens or becomes localized to one area, if you develop high fever, or if you become lightheaded and weak. Cough Suppressant/Expectorant Medication You are to use a cough medication as needed for relief of symptoms. This medicine is a combination of an expectorant (to make the mucous thinner and more easily "coughed up") and a cough suppressant (to reduce the frequency of coughing). The cough-suppressant medicine is related to narcotics. You may experience mild nausea and sleepiness. Some patients who are very sensitive to narcotics may have stomach pain from this medicine. Taking the medicine with food reduces these side effects. Do not drive or work with machinery until you know how this medicine affects you. The expectorant should have no side effects. Iodine-containing expectorants (such as organidin) should not be taken by persons with active thyroid disease unless approved by your doctor. Call the doctor if you develop shortness of breath, hives, rash, itching, lightheadedness, or severe nausea and vomiting. Prescriptions: Doxycycline Monohydrate 100 mg PO BID #20 capsule Cetirizine HCl [Zyrtec 10 mg Tablet] 10 mg PO DAILY #30 tablet Referrals: JOVITA UP MD [Primary Care Provider] - Follow up as needed I personally performed the services described in the documentation, reviewed and edited the documentation which was dictated to the scribe in my presence, and it accurately records my words and actions.
[2019-12-27 20:45] LABS: APPEARANCE,URINE SLIGHTLY-CLOUDY; BILIRUBIN,URINE NEGATIVE (NEGATIVE); COLOR,URINE YELLOW; GLUCOSE, URINE NEGATIVE (NEGATIVE); KETONES,URINE NEGATIVE (NEGATIVE); LEUKOCYTE ESTERASE,URINE MODERATE (NEGATIVE); NITRITE,URINE NEGATIVE (NEGATIVE); PROTEIN,URINE NEGATIVE (NEGATIVE); URINE SPECIFIC GRAVITY 1.011; UROBILINOGEN,URINE NEGATIVE mg/dL (<2.0)
== END 2019-12-27 21:00 | disposition home or self-care (01) ==
LOC: ER 18:00
DX: J06.9 Acute upper respiratory infection, unspecified (principal); B34.9 Viral infection, unspecified; R19.7 Diarrhea, unspecified; R05 Cough; R09.81 Nasal congestion; J02.9 Acute pharyngitis, unspecified; R51.9 Headache, unspecified; R68.83 Chills (without fever); Z20.828 Contact with and (suspected) exposure to other viral communicable diseases; Z88.8 Allergy status to other drugs, medicaments and biological substances; I10 Essential (primary) hypertension; J45.909 Unspecified asthma, uncomplicated; E11.9 Type 2 diabetes mellitus without complications
CPT/HCPCS: 99284; 36415; 83690; 85025; 80053; 81001; 74022; U0003; C9803; 87635

== ENCOUNTER → 2020-03-10 | Outpatient (CLI) | payer MEDICARE, OTHER ==
--- NOTE | 2020-03-10 10:23 | WOMENS IMAGING REPORT ---
EXAM DESCRIPTION: BILAT SCREENING MAMMO W/CAD IMAGES COMPLETED DATE/TIME: 03/10/2020 9:16 am REASON FOR STUDY: ROUTINE SCREENING MAMMOGRAM Z12.31 Z12.31 ENCNTR SCREEN MAMMOGRAM FOR MALIGNANT N EOPLASM OF RADHA COMPARISON: Priors dating back to 2013 EXAM PARAMETERS: Standard craniocaudal and mediolateral oblique views of each breast recorded using digital acquisition. Read with the assistance of CAD. [employer] Version 9.2 LIMITATIONS: None. FINDINGS: No suspicious masses, suspicious calcifications or architectural distortion. No areas of c oncern. IMPRESSION: NEGATIVE MAMMOGRAM. BIRADS 1 BREAST DENSITY: b. There are scattered areas of fibroglandular density. BIRAD: ASSESSMENT: 1 NEGATIVE RECOMMENDATION: ROUTINE SCREENING COMMENT: The patient has been notified of the results by letter per MQSA requirements. Additional no tification policies are in place for contacting patient with suspicious or incomplete findings. Quality ID #225: The [employer] recommends an annual screening mammogram for women aged 40 years or over. This facility utilizes a reminder system to ensure that all patients receive reminder letters, and/or direct phone calls for appointments. This includes reminders for routine scr eening mammograms, diagnostic mammograms, or other Breast Imaging Interventions when appropriate. Th is patient will be placed in the appropriate reminder system. TECHNICAL DOCUMENTATION: FINDING NUMBER: (1) ASSESSMENT: (1) JOB ID: [id number] 2010 [employer]- All Rights Reserved Reading location - IP/workstation name: [email or web address]
== END ==
LOC: WI 12:18
PROVIDERS: ATTEND Family Medicine
DX: Z12.31 Encounter for screening mammogram for malignant neoplasm of breast (principal)
CPT/HCPCS: 77067

== ENCOUNTER 2020-03-11 15:36 | Emergency (ER) | payer MEDICARE ==
--- NOTE | 2020-03-11 15:53 | ER Document Report ---
ED Medical Screen (RME) - General Chief Complaint: Fever Stated Complaint: FEVER,HEADACHE,CHILLS,COUGH Time Seen by Provider: 03/11/20 15:48 Primary Care Provider: JOVITA UP MD [Primary Care Provider] - Follow up as needed Mode of Arrival: Ambulatory Information source: Patient Notes: 65-year-old female patient presenting with headache, cough, chills, fever of 101 at home, body aches. Denies any known exposures to Covid. Symptoms started yesterday. Patient has history of hypertension, hyperlipidemia, diabetes and chronic bronchitis. Lung sounds clear and equal bilaterally. Mildly increased work of breathing. I have greeted and performed a rapid initial assessment of this patient. A comprehensive ED assessment and evaluation of the patient, analysis of test results and completion of the medical decision making process will be conducted by additional ED providers. I have specifically instructed the patient or family members with the patient to immediately return to any nursing staff should anything change in the patient's condition or with their chief complaint. TRAVEL OUTSIDE OF THE [place] IN LAST 30 DAYS: No - Related Data Allergies/Adverse Reactions: ibuprofen [From Advil] Allergy (Verified 12/27/19 18:25) naproxen [From Aleve] Allergy (Verified 04/18/19 11:32) diphenhydramine HCl [From Benadryl] Adverse Reaction (Mild, Verified 04/18/19 11:32) makes me feel funny Past Medical History - Social History Family history: Reviewed & Not Pertinent - Past Medical History Cardiac Medical History: Reports: Hx Hypercholesterolemia, Hx Hypertension Denies: Hx Heart Attack Pulmonary Medical History: Reports: Hx Asthma - pt states she doesnt have, Hx Bronchitis, Hx Pneumonia Denies: Hx COPD, Hx Tuberculosis Neurological Medical History: Denies: Hx Seizures, Hx Parkinson's Disease Endocrine Medical History: Reports: Hx Diabetes Mellitus Type 2 Renal/ Medical History: Denies: Hx Peritoneal Dialysis GI Medical History: Reports: Hx Gastroesophageal Reflux Disease Musculoskeltal Medical History: Reports Hx Arthritis, Reports Hx Musculoskeletal Deformity Past Surgical History: Reports: Hx Section, Hx Cholecystectomy, Hx Orthopedic Surgery - Carpal tunnel cyst right hand. Denies: Hx Hysterectomy - Immunizations Immunizations up to date: Yes Hx Diphtheria, Pertussis, Tetanus Vaccination: Yes Physical Exam - Vital signs Vitals: Temp Pulse Resp BP Pulse Ox 98.5 F 87 20 148/89 H 95 01/08/21 15:47 03/11/20 15:47 03/11/20 15:47 03/11/20 15:47 03/11/20 15:47 Course - Vital Signs Vital signs: Temp Pulse Resp BP Pulse Ox 98.5 F 87 20 148/89 H 95 03/11/20 15:47 03/11/20 15:47 03/11/20 15:47 03/11/20 15:47 03/11/20 15:47 Doctor's Discharge - Discharge Referrals: JOVITA UP MD [Primary Care Provider] - Follow up as needed
[2020-03-11 17:33] LABS: ABSOLUTE LYMPHOCYTES (AUTO) 1.4 10^3/uL (0.5-4.7); ABSOLUTE MONOCYTES (AUTO) 0.6 10^3/uL (0.1-1.4); BASOPHILS % (AUTO) 0.6 % (0-2); EOSINOPHILS % (AUTO) 1.1 % (0-6); HEMATOCRIT 36.3 % (36.0-47.0); HEMOGLOBIN 12.3 g/dL (12.0-15.5); LYMPHOCYTES % (AUTO) 34.3 % (13-45); MEAN CORPUSCULAR HEMOGLOBIN 29.9 pg (27.0-33.4); MEAN CORPUSCULAR HGB CONC 33.9 g/dL (32.0-36.0); MEAN CORPUSCULAR VOLUME 88 fl (80-97); MONOCYTES % (AUTO) 15.6 % (3-13); PLATELET COUNT 203 10^3/uL (150-450); RED BLOOD COUNT 4.11 10^6/uL (3.72-5.28); RED CELL DISTRIBUTION WIDTH 13.4 % (11.5-14.0); SEGMENTED NEUTROPHILS % (AUTO) 48.4 % (42-78); TOTAL CELLS COUNTED % (AUTO) 100 %; WHITE BLOOD COUNT 4.2 10^3/uL (4.0-10.5)
--- NOTE | 2020-03-11 17:37 | RADIOLOGY REPORT (SQ) ---
EXAM DESCRIPTION: CHEST SINGLE VIEW IMAGES COMPLETED DATE/TIME: 03/11/2020 5:29 pm REASON FOR STUDY: cough/possible covid COMPARISON: 11/27/2019 EXAM PARAMETERS: NUMBER OF VIEWS: One view. TECHNIQUE: Single frontal radiographic view of the chest acquired. RADIATION DOSE: NA LIMITATIONS: None. FINDINGS: LUNGS AND PLEURA: No opacities, masses or pneumothorax. No pleural effusion. MEDIASTINUM AND HILAR STRUCTURES: No masses. Contour normal. HEART AND VASCULAR STRUCTURES: Heart normal in size. Normal vasculature. BONES: No acute findings. HARDWARE: None in the chest. OTHER: No other significant finding. IMPRESSION: NO ACUTE RADIOGRAPHIC FINDING IN THE CHEST. TECHNICAL DOCUMENTATION: JOB ID: [id number] 2010 [employer]- All Rights Reserved Reading location - IP/workstation name: [email or web address]
[2020-03-11 17:52] LABS: ALKALINE PHOSPHATASE 62 U/L (38-126); ANION GAP 9 (5-19); ASPARTATE AMINO TRANSFERASE 36 U/L (14-36); BILIRUBIN,DIRECT 0.2 mg/dL (0.0-0.4); BILIRUBIN,TOTAL 0.4 mg/dL (0.2-1.3); BLOOD UREA NITROGEN 15 mg/dL (7-20); CALCIUM 9.1 mg/dL (8.4-10.2); CARBON DIOXIDE 31 mmol/L (22-30); CHLORIDE 101 mmol/L (98-107); GLUCOSE 111 mg/dL (75-110); POTASSIUM 3.4 mmol/L (3.6-5.0)
[2020-03-11] MEDS ORDERED: DEXAMETHASONE 4 MG TABLET PO ONE (20:42)
[2020-03-11] MEDS ORDERED: BENZONATATE 100 MG CAPSULE PO ONE (20:42)
--- NOTE | 2020-03-11 20:45 | ER Document Report ---
ED General - General Chief Complaint: Fever Stated Complaint: FEVER,HEADACHE,CHILLS,COUGH Time Seen by Provider: 03/11/20 15:48 Primary Care Provider: JOVITA UP MD [Primary Care Provider] - Follow up as needed Mode of Arrival: Ambulatory Notes: 65-year-old female patient presenting with headache, cough, chills, fever of 101 at home, body aches. Denies any known exposures to Covid. Symptoms started yesterday. Patient has history of hypertension, hyperlipidemia, diabetes and chronic bronchitis. TRAVEL OUTSIDE OF THE [place] IN LAST 30 DAYS: No - Related Data Allergies/Adverse Reactions: ibuprofen [From Advil] Allergy (Verified 12/27/19 18:25) naproxen [From Aleve] Allergy (Verified 04/18/19 11:32) diphenhydramine HCl [From Benadryl] Adverse Reaction (Mild, Verified 04/18/19 11:32) makes me feel funny Past Medical History - General Information source: Patient - Social History Smoking Status: Never Smoker Family History: Reviewed & Not Pertinent, CAD, DM, Hyperlipidemia, Hypertension, Malignancy, Thyroid Disfunction - Past Medical History Cardiac Medical History: Reports: Hx Hypercholesterolemia, Hx Hypertension Denies: Hx Heart Attack Pulmonary Medical History: Reports: Hx Asthma - pt states she doesnt have, Hx Bronchitis, Hx Pneumonia Denies: Hx COPD, Hx Tuberculosis Neurological Medical History: Denies: Hx Seizures, Hx Parkinson's Disease Endocrine Medical History: Reports: Hx Diabetes Mellitus Type 2 Renal/ Medical History: Denies: Hx Peritoneal Dialysis GI Medical History: Reports: Hx Gastroesophageal Reflux Disease Musculoskeletal Medical History: Reports Hx Arthritis, Reports Hx Musculoskeletal Deformity Past Surgical History: Reports: Hx Section, Hx Cholecystectomy, Hx Orthopedic Surgery - Carpal tunnel cyst right hand. Denies: Hx Hysterectomy - Immunizations Immunizations up to date: Yes Hx Diphtheria, Pertussis, Tetanus Vaccination: Yes Hx Pneumococcal Vaccination: 12/02/13 Review of Systems - Review of Systems -: Yes All other systems reviewed and negative - see HPI Physical Exam - Vital signs Vitals: Temp Pulse Resp BP Pulse Ox 98.5 F 87 20 148/89 H 95 03/11/20 15:47 03/11/20 15:47 03/11/20 15:47 03/11/20 15:47 03/11/20 15:47 - Notes Notes: PHYSICAL EXAMINATION: GENERAL: Well-appearing, well-nourished and in no acute distress. HEAD: Atraumatic, normocephalic. EYES: Pupils equal round and reactive to light, extraocular movements intact, conjunctiva are normal. ENT: Nares patent, oropharynx clear without exudates. Moist mucous membranes. NECK: Normal range of motion, supple without lymphadenopathy LUNGS: Breath sounds clear to auscultation bilaterally and equal. No wheezes rales or rhonchi. HEART: Regular rate and rhythm without murmurs ABDOMEN: Soft, nontender, nondistended abdomen. No guarding, no rebound. No masses appreciated. Female : deferred Musculoskeletal: Normal range of motion, no pitting or edema. No cyanosis. NEUROLOGICAL: Cranial nerves grossly intact. Normal speech, normal gait. Normal sensory, motor exams PSYCH: Normal mood, normal affect. SKIN: Warm, Dry, normal turgor, no rashes or lesions noted. Course - Vital Signs Vital signs: Temp Pulse Resp BP Pulse Ox 98.6 F 78 16 136/87 H 100 03/11/20 20:59 03/11/20 20:59 03/11/20 20:59 03/11/20 20:59 03/11/20 20:59 - Laboratory Results Result Diagrams: 03/11/20 17:19 03/11/20 17:19 Laboratory Results Interpreted: 03/11/20 03/11/20 17:19 17:19 [place] % (Auto) 15.6 H Potassium 3.4 L Carbon Dioxide 31 H Est GFR (MDRD) Non-Af 59 L Glucose 111 H Critical Laboratory Results Reviewed: No Critical Results - Radiology Results Critical Radiology Results Reviewed: No Critical Results - EKG Interpretation by Oh EKG shows normal: Sinus rhythm - rate 73, Intervals, QRS Complexes Discharge - Discharge Clinical Impression: Person under investigation for COVID-19, Viral illness Fever Qualifiers: Fever type: unspecified Qualified Code(s): R50.9 - Fever, unspecified Condition: Stable Disposition: HOME, SELF-CARE Additional Instructions: Your COVID-19 test results are not back yet. The rest of your work-up today was reassuring. Your lab work and chest x-ray are all normal. We have given you a dose of steroids here in the emergency department. This should significantly help with your breathing. Use the cough medicine as prescribed. Follow-up with your primary care provider. The health department should call you within 2 to 3 days with your test results. Return to the emergency department if you experience worsening symptoms or feel significant shortness of breath. Prescriptions: Benzonatate [Tessalon Perles 100 mg Capsule] 1 - 2 tab PO Q8HP PRN #40 capsule PRN Reason: Referrals: JOVITA UP MD [Primary Care Provider] - Follow up as needed
[2020-03-11 21:24] VITALS: BP 136/87
--- NOTE | 2020-03-11 22:05 | EKG REPORT ---
SEVERITY:- ABNORMAL ECG - SINUS RHYTHM LVH WITH SECONDARY REPOLARIZATION ABNORMALITY : Confirmed by: Sarah Eid 11-Mar-2020 22:04:53
== END 2020-03-11 21:10 | disposition home or self-care (01) ==
LOC: ER 15:36
DX: U07.1 COVID-19 (principal); B34.9 Viral infection, unspecified; R50.9 Fever, unspecified; R51.9 Headache, unspecified; R05 Cough; M79.10 Myalgia, unspecified site; E78.00 Pure hypercholesterolemia, unspecified; I10 Essential (primary) hypertension; E11.9 Type 2 diabetes mellitus without complications; Z90.49 Acquired absence of other specified parts of digestive tract
CPT/HCPCS: 93005; 99285; 36415; 85025; 80053; 84484; 71045; 93010; U0003; A9270 ×2; C9803; 87635; J8540